=== PATIENT | male | born 1940 | race Caucasian/White ===

== ENCOUNTER 2017-04-12 08:26 | Inpatient (IN) | payer OTHER ==
[2017-04-05 12:35] VITALS: BMI 34.7
--- NOTE | 2017-04-11 08:38 | HP ---
Satellite [facility] - Chief Complaint Chief Complaint: right knee pain - Past Medical History Allergies/Adverse Reactions: Allergies Allergy/AdvReac Type Severity Reaction Status Date / Time codeine Allergy Severe Nausea Verified 04/05/17 12:18 - Current Medications Current Medications: Home Medications Medication Instructions Recorded Amlodipine Besylate 10 mg PO DAILY 04/05/17 Apixaban [Eliquis] 2.5 mg PO DAILY 04/05/17 Atenolol [Tenormin -] 100 mg PO DAILY 04/05/17 Gabapentin 100 mg PO TID 04/05/17 Interferon Beta-1A/Albumin [Rebif 44 mcg SQ ASDIR 04/05/17 44 Mcg/0.5 ml Syringe] Metformin HCl [Metformin HCl ER] 500 mg PO DAILY 04/05/17 Omeprazole 20 mg PO DAILY 04/05/17 Tamsulosin HCl [Flomax] 0.4 mg PO DAILY 04/05/17 Satellite Physical Exam - Physical Examination General Appearance: Well Nourished, Well Developed, Alert & Oriented x3 ENT: Clear Lung: Normal air movement Heart: Regular rate & rhythm Extremities: Other (right knee- + swelling, + ttp, decr rom, nvi xrays show severe tricompartmental djd) Neurological: Intact, Alert, Oriented Satellite Impression/Plan - Impression/Plan Impression: right knee djd Operative Procedure: right deion tkr Date to be Performed: 04/12/17
[2017-04-12] MEDS ORDERED: TRANEXAMIC ACID 1000 MG/10 ML VIAL IVPUSH ONE (08:42)
[2017-04-12] MEDS ORDERED: GABAPENTIN 300 MG CAPSULE (FP) PO ONE (08:42)
[2017-04-12] MEDS ORDERED: CEFAZOLIN 2 GM in DEXTROSE 5%-WATER - 50 ML IVPB ONE (08:42)
[2017-04-12] MEDS ORDERED: CELECOXIB 200 MG CAPSULE PO ONE (08:42)
[2017-04-12] MEDS ORDERED: ceFAZolin SODIUM 1 GM VIAL ONE (09:50)
[2017-04-12] MEDS ORDERED: DEXAMETHASONE SOD PHOSPHATE/PF 10 MG/ML SDV ONE (10:35)
[2017-04-12] MEDS ORDERED: ROPIVACAINE HCL 0.5% 30ML VIAL ONE (10:36)
[2017-04-12] MEDS ORDERED: MIDAZOLAM HCL 2 MG/2 ML SINGLE DOSE VIAL ONE (10:36)
[2017-04-12] MEDS ORDERED: fentaNYL CITRATE 250 MCG/5 ML VIAL ONE (10:58)
[2017-04-12] MEDS ORDERED: ROCURONIUM BROMIDE 50 MG/5 ML VIAL ONE ×2 (10:59→12:52)
[2017-04-12] MEDS ORDERED: PROPOFOL 20 ML ONE ×2 (10:59→13:18)
[2017-04-12] MEDS ORDERED: ePHEDrine SULFATE 50 MG/1 ML AMPULE ONE (11:58)
[2017-04-12] MEDS ORDERED: VANCOMYCIN 1,000 MG VIAL (RESTRICTED TO ID ONLY) ONE (12:01)
[2017-04-12] MEDS ORDERED: VANCOMYCIN 1,000 MG VIAL (RESTRICTED TO ID ONLY) IVPB ONE (13:09)
[2017-04-12] MEDS ORDERED: NEOSTIGMINE METHYLSULFATE 0.5 MG/ML - 10 ML MDV ONE (13:14)
[2017-04-12] MEDS ORDERED: MAGNESIUM HYDROX 2400MG/30ML ORAL SUSPENSION 30 ML CUP PO PRN (13:34)
[2017-04-12] MEDS ORDERED: ONDANSETRON 4 MG/2 ML VIAL IVPUSH PRN (13:34)
[2017-04-12] MEDS ORDERED: MAG HYDROX/AL HYDROX/SIMETH 30 ML UNIT-DOSE CUP PO PRN (13:34)
--- NOTE | 2017-04-12 13:38 | OP ---
Operative Note - Note: Operative Date: 04/12/17 (britney) Pre-Operative Diagnosis: right knee djd Operation: right deion tkr Post-Operative Diagnosis: Same as Pre-op Surgeon: Jarad Stevens [employer] Officer: Srinivas Lowry Anesthesiologist/GRAIN SHOVELER: José Antonio Buchanan Anesthesia: General, Local Specimens Removed: bone fragments Estimated Blood Loss (mls): 50 (tourniquet) Operative Report Dictated: Yes
[2017-04-12] MEDS ORDERED: LACTATED RINGERS SOLUTION 1,000 ML IV SCH (13:45)
--- NOTE | 2017-04-12 14:20 | SPEC ---
DATE OF OPERATION: 04/12/2017 PREOPERATIVE DIAGNOSIS: Degenerative joint disease, right knee. POSTOPERATIVE DIAGNOSIS: Degenerative joint disease, right knee. PROCEDURE: Right total knee replacement with robotic-assisted navigation (Makoplasty). SURGICAL ATTENDING: Jarad Stevens M.D. FUND CONTROLLER: Amanda Taylor ANESTHESIA: Regional and general (patient has MS). CLOSURE: A __Triathalon knee system with a 6 femur, 7 tibia, 9 polyethylene, 38 patella, number 1 Vicryl fascia, 0 and 2-0 subcutaneous, 3-0 Monocryl subcuticular with skin glue for skin, 4-0 undyed Vicryl for pin site. ESTIMATED BLOOD LOSS: Negligible. TOURNIQUET TIME: Approximately 80 minutes. COMPLICATIONS: None. CONDITION: To recovery room in stable condition. DESCRIPTION OF OPERATIVE PROCEDURE: Patient was taken to the operating room on March 22, 2017. Regional and general anesthesia was administered by the anesthesiologist. IV Kefzol and TXA were administered by the anesthesiologist. Well-padded pneumatic tourniquet was placed on the proximal thigh. The right lower extremity was prepped and draped in the usual sterile fashion. The leg was exsanguinated with an Esmarch bandage, and tourniquet was inflated to 275 mmHg. A 12 to 15-cm longitudinal midline incision was incised while centered over the patella. The dissection was carried down to the level of the extensor mechanism with sufficient flaps made to adequately perform the procedure. A medial parapatellar arthrotomy was then performed. We made a cuff of tissue on the patella for later closure. The patella was inverted, the knee was flexed up. The fat pad was excised. The subperiosteal dissection was on the anteromedial proximal tibia around towards the direction of the MCL. The ACL and the PCL were transected and debrided. The meniscal remnants of the medial and lateral meniscus were debrided and removed. This allowed the knee to be able to "be brought forward." The checkpoints were malleted into the tibia and into the femur. Two threaded pins were drilled anteroposteriorly proximal to the knee through the previous incision, through the anterior cortex, then just engaging the posterior cortex. To these pins was assembled the femoral navigation array. One handbreadth below the tibial tubercle, 2 stab incisions were used to drill 2 threaded pins in parallel fashion into the tibia, again through the anterior cortex and just engaging the posterior cortex. To these pins was fastened the tibial arrays. The knee was then registered with the navigation device with center of rotation of the hip, medial and lateral malleoli, both checkpoints, and multiple points on both the femur and the tibia to ensure excellent registration. The navigation device was directed off the "top of the bubbles" on both the femur and the tibia. The navigation passed within less than 0.5 mm to plan. The knee was then thoroughly inspected to remove all osteophytes both medially, laterally, and on the femur and the tibia, and whatever osteophytes were available for dissection. The knee was then taken to extension and to flexion, and stressed in both varus and valgus to assess flexion gaps. The virtual position of the components on the navigation device were then manipulated to optimize the position and to ensure equal gaps in both flexion and extension, and both medially and laterally. The robot was then brought into the field and was registered. The cuts were then made both on the femur and on the tibia as to plan. All osteophytes posteriorly were then removed as well. The gaps were then measured again in flexion and extension to be equal in both flexion and extension and medial and laterally. The femoral notch was then made, as we were doing a posterior stabilizing component, with the appropriate sized box. Trial reduction of the femur achieved excellent [id number] fit. A tibial baseplate of appropriate polyethylene thickness was "floated in the knee." It was ensured to be in the excellent position by navigation devices and was pinned in place. The knee was taken through a range of motion, and found to have excellent stability throughout flexion and extension. The patella was calibrated for thickness and osteotomized down to the appropriate level. The appropriate lollipop was used to drill the lug holes in the patella and the trial button was applied. The knee was taken through a range of motion and found to have excellent tracking of the patella, and patella from full extension to full flexion. Trial components were removed, the keel was punched and drilled, and a sclerotic bone on the tibia was drilled to help with cement interdigitation. The knee was thoroughly irrigated with the pulse antibiotic coper hand. The real components were then cemented in using monitored arrangement cement techniques with antibiotic cement, and pressurization and extension. After the cement was hardened, the knee was thoroughly inspected to remove any extra cement. The real polyethylene component was then clipped into place. Range of motion, stability, and tracking were as described earlier. The checkpoints and the pins were removed. The knee was thoroughly irrigated with antibiotic irrigation. Vancomycin powder was placed into the knee for antibiotic prophylaxis. The medial parapatellar arthrotomy was then closed using number 1 Vicryl interrupted suture. After closure of the deep layer, the knee was taken through a range of motion, and found to have excellent stability of the patella with no dislocation and no undue tension on the repair. The subcutaneous was pulse antibiotic irrigated, and was then closed with 2-0 Vicryl, 3-0 Monocryl subcuticular with the skin glue for the skin. The distal tibial pin site was irrigated thoroughly as well and then closed with 4-0 undyed Vicryl. A sterile Aquacel dressing was applied, followed by a García dressing. Tourniquet was deflated. Total tourniquet time was approximately 75 minutes. No complications. Patient was awakened from anesthesia and transferred to recovery room in stable condition. Postoperative x-rays revealed excellent position of the components. Gem [id number] MTDD
[2017-04-12] MEDS ORDERED: oxyCODONE HCL 5 MG TABLET ONE (14:48)
[2017-04-12] MEDS ORDERED: ACETAMINOPHEN 325 MG TABLET (FP) ONE (14:48)
[2017-04-12] MEDS: ACETAMINOPHEN 325 MG TABLET (FP) PO SCH ×2 (14:49→20:10)
[2017-04-12] MEDS: oxyCODONE HCL 5 MG TABLET PO PRN ×4 (14:49→22:13)
[2017-04-12] MEDS ORDERED: HYDROmorphone HCL CARPU-JECT 1 MG/1 ML DISP.SYRIN ONE (14:53)
[2017-04-12] MEDS ORDERED: HYDROmorphone HCL CARPU-JECT 1 MG/1 ML DISP.SYRIN IVPUSH PRN (16:00)
[2017-04-12] MEDS: CEFAZOLIN 2 GM/D5W 2 GM/50 ML ML IVPB SCH (20:10)
[2017-04-12] MEDS: SENNOSIDES/DOCUSATE COMBO (SENNA PLUS) TABLET (UD) PO SCH (21:35)
[2017-04-12] MEDS: GABAPENTIN 300 MG CAPSULE (FP) PO SCH (21:35)
[2017-04-12] MEDS: oxyCODONE HCL 10 MG SUSTAINED ACTING TABLET PO SCH (21:35)
[2017-04-12] MEDS: TAMSULOSIN HCL 0.4 MG CAP.ER.24H (FP) PO SCH (22:23)
[2017-04-13] MEDS: ACETAMINOPHEN 325 MG TABLET (FP) PO SCH ×5 (01:26→19:52)
[2017-04-13] MEDS: oxyCODONE HCL 5 MG TABLET PO PRN ×6 (01:27→17:54)
[2017-04-13] MEDS: CEFAZOLIN 2 GM/D5W 2 GM/50 ML ML IVPB SCH (03:08)
[2017-04-13] MEDS: APIXABAN 2.5 MG TABLET PO SCH ×2 (06:02→17:00)
[2017-04-13 08:42] LABS: MCH 29.3 pg (25.7-33.7); MCHC 33.1 g/dl (32.0-35.9); MEAN CELL VOLUME 88.5 fl (80-96); MEAN PLT VOLUME 11.9 fl (7.5-11.1); PLATELET COUNT 156 K/MM3 (134-434); RDW 14.2 % (11.9-15.9); WHITE BLOOD COUNT 11.1 K/mm3 (4.0-10.8)
[2017-04-13] MEDS: SENNOSIDES/DOCUSATE COMBO (SENNA PLUS) TABLET (UD) PO SCH ×2 (09:11→21:09)
[2017-04-13] MEDS: PANTOPRAZOLE 40 MG TABLET (FP) PO SCH (09:11)
[2017-04-13] MEDS: GABAPENTIN 300 MG CAPSULE (FP) PO SCH ×2 (09:11→21:09)
[2017-04-13] MEDS: ATENOLOL 50 MG TABLET (FP) PO SCH (09:11)
[2017-04-13] MEDS: oxyCODONE HCL 10 MG SUSTAINED ACTING TABLET PO SCH ×2 (09:12→21:09)
[2017-04-13] MEDS: MULTIVITAMINS (DAILY MVI) TABLET (FP) PO SCH (09:12)
[2017-04-13] MEDS: amLODIPine BESYLATE 10 MG TABLET (FP) PO SCH (09:12)
[2017-04-13] MEDS ORDERED: PATIENT'S OWN MEDICATION (NON-FORMULARY) (Atenolol [Tenormin -] 100 MG) PO SCH (10:00)
--- NOTE | 2017-04-13 10:03 | PN ---
Progress Note (short form) - Note Progress Note: Ortho Pt seen and examined s/p right deino tkr pod #1 Selected Entries 04/13/17 06:38 Temperature 98.4 F Pulse Rate 56 L Respiratory 19 Rate Blood Pressure 120/63 Laboratory Tests 04/13/17 07:00 WBC 11.1 H Hgb 14.0 Hct 42.3 Plt Count 156 dressing c/d/i, calf soft, nt rom 0-40, nvi a/p PT dvt ppx pain control d/c home tomorrow if stable
[2017-04-13] MEDS ORDERED: diazePAM 5 MG TABLET PO PRN (14:18)
[2017-04-13] MEDS: TAMSULOSIN HCL 0.4 MG CAP.ER.24H (FP) PO SCH (14:19)
--- NOTE | 2017-04-13 14:22 | PN ---
Progress Note, Physician Chief Complaint: s/p left BOOKER kneww replacement History of Present Illness: udner spinal anesthesia, peripheral nerve blck, post op day one. - Current Medication List Current Medications: Active Medications Acetaminophen (Tylenol -) 650 mg PO Q6H [facility] Stop: 04/15/17 13:59 Last Admin: 04/13/17 08:00 Dose: Not Given Al Hydroxide/Mg Hydroxide (Mylanta Oral Suspension -) 30 ml PO Q4H PRN PRN Reason: DYSPEPSIA Amlodipine Besylate (Norvasc -) 10 mg PO DAILY [facility] Last Admin: 04/13/17 09:12 Dose: 10 mg Apixaban (Eliquis -) 2.5 mg PO BID@0600,1800 [facility] Last Admin: 04/13/17 06:02 Dose: 2.5 mg Atenolol (Tenormin -) 100 mg PO DAILY [facility] Last Admin: 04/13/17 09:11 Dose: 100 mg Diazepam (Valium -) 5 mg PO Q8H PRN PRN Reason: MUSCLE SPASMS Gabapentin (Neurontin -) 300 mg PO BID [facility] Last Admin: 04/13/17 09:11 Dose: 300 mg Hydromorphone HCl (Dilaudid Injection -) 0.5 mg IVPUSH ONCE PRN Magnesium Hydroxide (Milk Of Magnesia -) 30 ml PO PRN PRN PRN Reason: CONSTIPATION Metformin HCl (Glucophage Xr -) 500 mg PO ACBK [facility] Last Admin: 04/13/17 06:46 Dose: 500 mg Multivitamins/Minerals/Vitamin C (Tab-A-Vit -) 1 tab PO DAILY [facility] Last Admin: 04/13/17 09:12 Dose: 1 tab Non-Formulary Medication (Interferon Beta-1a/Albumin [Rebif 44 Mcg/0.5 Ml Syringe]) 44 mcg SQ ASDIR [facility] Ondansetron HCl (Zofran Injection) 4 mg IVPUSH Q6H PRN PRN Reason: NAUSEA Last Admin: 04/12/17 14:03 Dose: 4 mg Oxycodone HCl (Roxicodone -) 5 mg PO Q3H PRN PRN Reason: PAIN LEVEL 1-5 Last Admin: 04/13/17 07:30 Dose: 5 mg Oxycodone HCl (Roxicodone -) 10 mg PO Q3H PRN PRN Reason: PAIN LEVEL 6-10 Last Admin: 04/13/17 11:59 Dose: 10 mg Oxycodone HCl (Oxycontin -) 10 mg PO BID [facility] Stop: 04/15/17 13:52 Last Admin: 04/13/17 09:12 Dose: 10 mg Pantoprazole Sodium (Protonix -) 40 mg PO DAILY [facility] Last Admin: 04/13/17 09:11 Dose: 40 mg Senna/Docusate Sodium (Pericolace -) 2 tablet PO BID [facility] Last Admin: 04/13/17 09:11 Dose: 2 tablet Tamsulosin HCl (Flomax -) 0.4 mg PO DAILY@1500 [facility] Last Admin: 04/12/17 22:23 Dose: 0.4 mg - Objective Vital Signs: Vital Signs Temperature 98.4 F 04/13/17 06:38 Pulse Rate 56 L 04/13/17 06:38 Respiratory Rate 19 04/13/17 06:38 Blood Pressure 120/63 04/13/17 06:38 O2 Sat by Pulse Oximetry (%) 94 L 04/13/17 06:38 Constitutional: Yes: Well Nourished Cardiovascular: Yes: WNL Respiratory: Yes: WNL Gastrointestinal: Yes: WNL Neurological: Yes: WNL Labs: CBC, BMP 04/13/17 07:00 Assessment/Plan complaining of posterior leg pain, likely spasm in nature, anterior pain controlled, pain not relived by oral analgesics, no nausea or vomiting, slight headache, not positional in nature, no vision changes. Will order valium prn for muscle spasm and analgesic adjunct.
--- NOTE | 2017-04-13 14:30 | CONSULT ---
Consultation: REQUESTING PROVIDER: Rodney CONSULT REQUEST: We have been asked to medically evaluate this patient for right calf pain. HISTORY OF PRESENT ILLNESS: Patient is a 76y/o male with a past medical history of dvt (eliquis), htn, hld, dm, bph, and osteoarthritis. patient is s/p right TKR (deion), post op day 1, Dr Stevens. Patient reports moderate right calf pain on post op day 1, patient denies any chest pain or shortness of breath. REVIEW OF SYSTEMS: CONSTITUTIONAL: Absent: fever, chills, diaphoresis, generalized weakness, malaise, loss of appetite, weight change HEENT: Absent: rhinorrhea, nasal congestion, throat pain, throat swelling, difficulty swallowing, mouth swelling, ear pain, eye pain, visual changes CARDIOVASCULAR: Absent: chest pain, syncope, palpitations, irregular heart rate, lightheadedness , peripheral edema RESPIRATORY: Absent: cough, shortness of breath, dyspnea with exertion, orthopnea, wheezing, stridor, hemoptysis GASTROINTESTINAL: Absent: abdominal pain, abdominal distension, nausea, vomiting, diarrhea, constipation, melena, hematochezia GENITOURINARY: Absent: dysuria, frequency, urgency, hesitancy, hematuria, flank pain, genital pain MUSCULOSKELETAL: present: right calf pain Absent: myalgia, arthralgia, joint swelling, back pain, neck pain SKIN: Absent: rash, itching, pallor HEMATOLOGIC/IMMUNOLOGIC: Absent: easy bleeding, easy bruising, lymphadenopathy, frequent infections ENDOCRINE: Absent: unexplained weight gain, unexplained weight loss, heat intolerance, cold intolerance NEUROLOGIC: Absent: headache, focal weakness or paresthesias, dizziness, unsteady gait, seizure, mental status changes, bladder or bowel incontinence PSYCHIATRIC: Absent: anxiety, depression, suicidal or homicidal ideation, hallucinations. PHYSICAL EXAMINATION Vital Signs - 24 hr 04/12/17 04/12/17 04/12/17 14:30 14:45 15:00 Temperature Pulse Rate 58 L 63 61 Respiratory 12 15 15 Rate Blood Pressure 134/81 139/78 114/81 O2 Sat by Pulse 98 95 95 Oximetry (%) 04/12/17 04/12/17 04/12/17 15:15 15:30 15:38 Temperature 98.9 F 98.6 F Pulse Rate 59 L 62 71 Respiratory 18 18 18 Rate Blood Pressure 116/75 116/75 141/77 O2 Sat by Pulse 95 98 Oximetry (%) 04/12/17 04/12/17 04/13/17 21:00 21:34 06:38 Temperature 98.6 F 98.4 F Pulse Rate 67 56 L Respiratory 18 20 19 Rate Blood Pressure 114/61 120/63 O2 Sat by Pulse 99 94 L 94 L Oximetry (%) GENERAL: Awake, alert, and fully oriented, in no acute distress. HEAD: Normal with no signs of trauma. EYES: Pupils equal, round and reactive to light, extraocular movements intact, sclera anicteric, conjunctiva clear. No lid lag. EARS, NOSE, THROAT: Ears normal, nares patent, oropharynx clear without exudates. Moist mucous membranes. NECK: Normal range of motion, supple without lymphadenopathy, JVD, or masses. LUNGS: Breath sounds equal, clear to auscultation bilaterally. No wheezes, and no crackles. No accessory muscle use. HEART: Regular rate and rhythm, normal S1 and S2 without murmur, rub or gallop. ABDOMEN: Soft, nontender, not distended, normoactive bowel sounds, no guarding, no rebound, no masses. No hepatomegaly or splenomegaly. MUSCULOSKELETAL: Normal range of motion at all joints. No bony deformities or tenderness. No CVA tenderness. UPPER EXTREMITIES: 2+ pulses, warm, well-perfused. No cyanosis. No clubbing. Cap refill <2 seconds. No peripheral edema. LOWER EXTREMITIES: 2+ pulses, warm, well-perfused. +right calf tenderness, no erythema noted, No peripheral edema. RIGHT LOWER EXTREMITY: less than 3 second capillary refill, dressing CDI, SCD/ TALIA noted, +3 pedal pulse NEUROLOGICAL: Cranial nerves II-XII intact. Normal speech. Normal gait. PSYCHIATRIC: Cooperative. Good eye contact. Appropriate mood and affect. SKIN: Warm, dry, normal turgor, no rashes or lesions noted. Laboratory Results - last 24 hr 04/13/17 04/13/17 06:44 07:00 WBC 11.1 H RBC 4.78 Hgb 14.0 Hct 42.3 MCV 88.5 MCH 29.3 MCHC 33.1 RDW 14.2 Plt Count 156 MPV 11.9 H POC Glucometer 124 Active Medications Generic Name Dose Route Start Last Admin Trade Name Freq PRN Reason Stop Dose Admin Acetaminophen 650 mg 04/12/17 14:00 04/13/17 14:19 Tylenol - PO 04/15/17 13:59 650 mg Q6H NESSA Administration Al Hydroxide/Mg Hydroxide 30 ml 04/12/17 13:34 Mylanta Oral Suspension - PO Q4H PRN DYSPEPSIA Amlodipine Besylate 10 mg 04/13/17 10:00 04/13/17 09:12 Norvasc - PO 10 mg DAILY N[facility] Administration Apixaban 2.5 mg 04/13/17 06:00 04/13/17 06:02 Eliquis - PO 2.5 mg BID@0600,1800 N[facility] Administration Atenolol 100 mg 04/13/17 10:00 04/13/17 09:11 Tenormin - PO 100 mg DAILY [facility] Administration Diazepam 5 mg 04/13/17 14:18 Valium - PO Q8H PRN MUSCLE SPASMS Gabapentin 300 mg 04/12/17 22:00 04/13/17 09:11 Neurontin - PO 300 mg BID [facility] Administration Hydromorphone HCl 0.5 mg 04/12/17 16:00 Dilaudid Injection - IVPUSH ONCE PRN Magnesium Hydroxide 30 ml 04/12/17 13:34 Milk Of Magnesia - PO PRN PRN CONSTIPATION Metformin HCl 500 mg 04/13/17 07:00 04/13/17 06:46 Glucophage Xr - PO 500 mg ACBK N[facility]SA Administration Multivitamins/Minerals/Vitamin C 1 tab 04/13/17 10:00 04/13/17 09:12 Tab-A-Vit - PO 1 tab DAILY [facility] Administration Non-Formulary Medication 44 mcg 04/12/17 13:45 Interferon Beta-1a/Albumin [Rebif 44 Mcg/0.5 Ml Syringe] SQ ASDIR [facility] Ondansetron HCl 4 mg 04/12/17 13:34 04/12/17 14:03 Zofran Injection IVPUSH 4 mg Q6H PRN Administration NAUSEA Oxycodone HCl 5 mg 04/12/17 13:50 04/13/17 14:20 Roxicodone - PO 5 mg Q3H PRN Administration PAIN LEVEL 1-5 Oxycodone HCl 10 mg 04/12/17 13:50 04/13/17 11:59 Roxicodone - PO 10 mg Q3H PRN Administration PAIN LEVEL 6-10 Oxycodone HCl 10 mg 04/12/17 22:00 04/13/17 09:12 Oxycontin - PO 04/15/17 13:52 10 mg BID [facility] Administration Pantoprazole Sodium 40 mg 04/13/17 10:00 04/13/17 09:11 Protonix - PO 40 mg DAILY [facility] Administration Senna/Docusate Sodium 2 tablet 04/12/17 22:00 04/13/17 09:11 Pericolace - PO 2 tablet BID [facility] Administration Tamsulosin HCl 0.4 mg 04/12/17 22:30 04/13/17 14:19 Flomax - PO 0.4 mg DAILY@1500 [facility] Administration ASSESSMENT/PLAN: 1) MS right TKR s/p deion post op day 1 - report calf pain, hx of dvt, will order ultrasound of right lower extremity--> continue eliquis - prn pain medication - incentive spirometer - pt as per ortho 2) card hypertension - continue norvasc, b/p at goal 3) gu bph - monitor for signs of urinary retention, continue flomax 4) endo niddm - continue metform f/e/n - low sodium diabetic diet ppx - elquis - protonix Dispo: We will continue to follow the patient. Thank you for this consultative opportunity. Visit type - Emergency Visit Emergency Visit: No - New Patient This patient is new to me today: Yes Date on this admission: 04/13/17 - Critical Care Critical Care patient: No
[2017-04-14] MEDS: ACETAMINOPHEN 325 MG TABLET (FP) PO SCH ×4 (01:04→20:22)
[2017-04-14] MEDS: oxyCODONE HCL 5 MG TABLET PO PRN ×5 (01:04→16:46)
[2017-04-14] MEDS: APIXABAN 2.5 MG TABLET PO SCH ×2 (06:11→18:00)
[2017-04-14 08:46] LABS: MCH 29.8 pg (25.7-33.7); MCHC 33.3 g/dl (32.0-35.9); MEAN CELL VOLUME 89.5 fl (80-96); MEAN PLT VOLUME 12.3 fl (7.5-11.1); PLATELET COUNT 136 K/MM3 (134-434); RDW 14.2 % (11.9-15.9); WHITE BLOOD COUNT 15.9 K/mm3 (4.0-10.8)
[2017-04-14] MEDS: SENNOSIDES/DOCUSATE COMBO (SENNA PLUS) TABLET (UD) PO SCH ×2 (09:07→21:16)
[2017-04-14] MEDS: MULTIVITAMINS (DAILY MVI) TABLET (FP) PO SCH (09:07)
[2017-04-14] MEDS: GABAPENTIN 300 MG CAPSULE (FP) PO SCH ×2 (09:07→21:16)
[2017-04-14] MEDS: PANTOPRAZOLE 40 MG TABLET (FP) PO SCH (09:07)
[2017-04-14] MEDS: amLODIPine BESYLATE 10 MG TABLET (FP) PO SCH (09:08)
[2017-04-14] MEDS: ATENOLOL 50 MG TABLET (FP) PO SCH (09:08)
[2017-04-14] MEDS: oxyCODONE HCL 10 MG SUSTAINED ACTING TABLET PO SCH ×2 (09:08→21:16)
--- NOTE | 2017-04-14 09:46 | PN ---
Progress Note (short form) - Note Progress Note: Ortho Pt seen and examined s/p right edion tkr pod #2-had calf pain yesterday, was evaluated by hospitalist Selected Entries 04/14/17 05:51 Temperature 97.8 F Pulse Rate 75 Respiratory 18 Rate Blood Pressure 136/60 Laboratory Tests 04/14/17 07:00 WBC 15.9 H D Hgb 12.9 Hct 38.8 Plt Count 136 dressing c/d/i, calf soft, nt rom 0-40, nvi US neg for dvt a/p PT dvt ppx pain control d/c home today f/u in 1 week
--- NOTE | 2017-04-14 09:50 | DS ---
Physical Examination Vital Signs: Vital Signs Temperature 97.8 F 04/14/17 05:51 Pulse Rate 75 04/14/17 05:51 Respiratory Rate 18 04/14/17 05:51 Blood Pressure 136/60 04/14/17 05:51 O2 Sat by Pulse Oximetry (%) 95 04/14/17 08:20 Labs: CBC, BMP 04/14/17 07:00 Discharge Summary Reason For Visit: OSTEOARTHRITIS Procedures: Principal: s/p right tkr Hospital Course: admitted for elective right tkr, had calf pain on surgical side, US performed and was neg, no other symptoms, styable for d/c Condition: Good - Instructions Diet, Activity, Other Instructions: Post-op Instructions-Total Knee Replacement Call the office for a follow-up appointment in 1 week - [phone] Aspirin 325mg daily for 6 weeks. Pain medication was sent into your pharmacy. Apply Graduated Compression Stockings (TEDs) to both lower extremities- remove daily for hygiene ONLY Apply Sequential Compression Device (SCDs) to both Lower extremities remove for PT and hygiene ONLY Apply cold packs to affected area for 15 minutes every 2 hours. Physical Therapist will come to your home for the first 5 days. You will be set up with outpatient PT at your first post-operative visit. Patient may ambulate as tolerated-encourage self care (at least every 2-3 hours while awake) with walker or cane Maintain Aquacel (waterproof) dressing to operative wound (will be removed by surgeon at first office visit) Shower with Aquacel dressing in place-if Aquacel integrity compromised, remove and apply dry sterile dressing and notify Orthopedist. DO NOT SHOWER unless Orthopedists approves without Aquacel dressing CONTACT THE OFFICE FOR ANY CHANGE IN YOUR CONDITION (for example-fever greater than 102 degrees, excessive bleeding from operative site, purulent drainage, severe swelling or pain) GO TO THE EMERGENCY ROOM IF THERE IS A MEDICAL EMERGENCY Knee Precautions: * Keep a rolled towel under affected heel while in bed or chair (to keep knee in extension) * Keep affected leg elevated except during mealtimes * DO NOT PLACE PILLOW UNDER AFFECTED KNEE * If you have any questions, please do not hesitate to call the office - [phone]. Referrals: Jarad Stevens MD [Staff Physician] - Disposition: VNS/HOME HEALTH CARE - Home Medications Comprehensive Discharge Medication List: Ambulatory Orders Amlodipine Besylate 10 mg PO DAILY 04/05/17 Apixaban [Eliquis] 2.5 mg PO DAILY 04/05/17 Atenolol [Tenormin -] 100 mg PO DAILY 04/05/17 Gabapentin 100 mg PO TID 04/05/17 Interferon Beta-1A/Albumin [Rebif 44 Mcg/0.5 ml Syringe] 44 mcg SQ ASDIR Metformin HCl [Metformin HCl ER] 500 mg PO DAILY 04/05/17 Omeprazole 20 mg PO DAILY 04/05/17 Tamsulosin HCl [Flomax -] 0.4 mg PO DAILY 04/05/17 Oxycodone HCl/Acetaminophen [Percocet 5-325 mg Tablet] 1 - 2 tab PO Q6H #50 tab MDD 8 04/12/17 Oxycodone HCl/Acetaminophen [Percocet 10-325 mg Tablet] 1 each PO QID #50 tablet MDD 4 04/14/17
[2017-04-14] MEDS: TAMSULOSIN HCL 0.4 MG CAP.ER.24H (FP) PO SCH (14:28)
[2017-04-14] MEDS ORDERED: PT OWN MED DRAWER 7, Y5N ONE (16:40)
--- NOTE | 2017-04-14 17:16 | PATH ---
Surgical Pathology Report Patient Name: AGUSTÍN MARTIN Med. Rec. #: [id number] /Age/Gender: 1940 (Age: 76) / M Account: [id number] Location: [facility] Taken: 04/12/2017 Received: 04/12/2017 Reported: 04/14/2017 Physicians: Jarad Stevens M.D. Specimen(s) Received RIGHT KNEE BONES Clinical History Osteoarthritis right knee Final Diagnosis KNEE BONES, RIGHT, TOTAL KNEE REPLACEMENT: DEGENERATIVE JOINT DISEASE. Electronically Signed Mylene Sainz M.D. Gross Description Received in formalin labeled "right knee bones," is a 13.0 x 8.5 x 2.0 cm aggregate of multiple armando, irregular portions of bone and soft tissue. The tibial plateau measures 8.2 x 6.0 x 1.5 cm. Some of the portions of bone display areas of eburnation, measuring up to 2.2 cm in greatest dimension. The remaining articular surfaces are armando-yellow and focally granular. The underlying trabecular bone is yellow and hard. Re[employer] Establishment Manager sections are submitted in one cassette, following decalcification. 04/13/201704/13/2017
[2017-04-15] MEDS: ACETAMINOPHEN 325 MG TABLET (FP) PO SCH ×2 (02:00→08:30)
[2017-04-15 05:34] VITALS: TEMP 98.3
[2017-04-15] MEDS: APIXABAN 2.5 MG TABLET PO SCH (05:47)
--- NOTE | 2017-04-15 09:30 | PN ---
Progress Note (short form) - Note Progress Note: Ortho Pt seen and examined s/p right deion tkr pod #2-calf pain improved Selected Entries 04/15/17 05:32 Temperature 98.3 F Pulse Rate 78 Respiratory 20 Rate Blood Pressure 100/42 dressing c/d/i, calf soft, nt rom 0-40, nvi US neg for dvt a/p PT dvt ppx pain control d/c to [facility] today
--- NOTE | 2017-04-15 09:30 | DS ---
Physical Examination Vital Signs: Vital Signs Temperature 98.3 F 04/15/17 05:32 Pulse Rate 78 04/15/17 05:32 Respiratory Rate 20 04/15/17 05:32 Blood Pressure 100/42 04/15/17 05:32 O2 Sat by Pulse Oximetry (%) 94 L 04/15/17 09:10 Labs: CBC, BMP 04/14/17 07:00 Discharge Summary Reason For Visit: OSTEOARTHRITIS Procedures: Principal: s/p right deion tkr Hospital Course: admitted for elective right tkr, had calf pain on surgical side, US performed and was neg, no other symptoms, styable for d/c Condition: Good - Instructions Diet, Activity, Other Instructions: Post-op Instructions-Total Knee Replacement Call the office for a follow-up appointment in 1 week - [phone] Aspirin 325mg daily for 6 weeks. Pain medication was sent into your pharmacy. Apply Graduated Compression Stockings (TEDs) to both lower extremities- remove daily for hygiene ONLY Apply Sequential Compression Device (SCDs) to both Lower extremities remove for PT and hygiene ONLY Apply cold packs to affected area for 15 minutes every 2 hours. Physical Therapist will come to your home for the first 5 days. You will be set up with outpatient PT at your first post-operative visit. Patient may ambulate as tolerated-encourage self care (at least every 2-3 hours while awake) with walker or cane Maintain Aquacel (waterproof) dressing to operative wound (will be removed by surgeon at first office visit) Shower with Aquacel dressing in place-if Aquacel integrity compromised, remove and apply dry sterile dressing and notify Orthopedist. DO NOT SHOWER unless Orthopedists approves without Aquacel dressing CONTACT THE OFFICE FOR ANY CHANGE IN YOUR CONDITION (for example-fever greater than 102 degrees, excessive bleeding from operative site, purulent drainage, severe swelling or pain) GO TO THE EMERGENCY ROOM IF THERE IS A MEDICAL EMERGENCY Knee Precautions: * Keep a rolled towel under affected heel while in bed or chair (to keep knee in extension) * Keep affected leg elevated except during mealtimes * DO NOT PLACE PILLOW UNDER AFFECTED KNEE * If you have any questions, please do not hesitate to call the office - [phone]. Referrals: Jarad Stevens MD [Staff Physician] - Disposition: [facility] - Home Medications Comprehensive Discharge Medication List: Ambulatory Orders Amlodipine Besylate 10 mg PO DAILY 04/05/17 Apixaban [Eliquis] 2.5 mg PO DAILY 04/05/17 Atenolol [Tenormin -] 100 mg PO DAILY 04/05/17 Gabapentin 100 mg PO TID 04/05/17 Interferon Beta-1A/Albumin [Rebif 44 Mcg/0.5 ml Syringe] 44 mcg SQ ASDIR Metformin HCl [Metformin HCl ER] 500 mg PO DAILY 04/05/17 Omeprazole 20 mg PO DAILY 04/05/17 Tamsulosin HCl [Flomax -] 0.4 mg PO DAILY 04/05/17 Oxycodone HCl/Acetaminophen [Percocet 5-325 mg Tablet] 1 - 2 tab PO Q6H #50 tab MDD 8 04/12/17 Oxycodone HCl/Acetaminophen [Percocet 10-325 mg Tablet] 1 each PO QID #50 tablet MDD 4 04/14/17
[2017-04-15 09:37] VITALS: BP 122/53; PULSE 76
[2017-04-15] MEDS: PANTOPRAZOLE 40 MG TABLET (FP) PO SCH (09:45)
[2017-04-15] MEDS: MULTIVITAMINS (DAILY MVI) TABLET (FP) PO SCH (09:45)
[2017-04-15] MEDS: amLODIPine BESYLATE 10 MG TABLET (FP) PO SCH (09:45)
[2017-04-15] MEDS: GABAPENTIN 300 MG CAPSULE (FP) PO SCH (09:45)
[2017-04-15] MEDS: SENNOSIDES/DOCUSATE COMBO (SENNA PLUS) TABLET (UD) PO SCH (09:46)
[2017-04-15] MEDS: oxyCODONE HCL 10 MG SUSTAINED ACTING TABLET PO SCH (09:46)
[2017-04-15] MEDS: ATENOLOL 50 MG TABLET (FP) PO SCH (09:47)
== END 2017-04-15 13:15 | DRG 470 ==
LOC: FM/S 08:26
PROVIDERS: ADMIT Orthopaedic Surgery; ATTEND Orthopaedic Surgery
PROC: 0SRC0J9 Replacement of Right Knee Joint with Synthetic Substitute, Cemented, Open Approach (ICD-10-PCS; principal; 2017-04-12 10:30)
DX: M17.11 Unilateral primary osteoarthritis, right knee (principal); Z79.01 Long term (current) use of anticoagulants; I10 Essential (primary) hypertension; E78.5 Hyperlipidemia, unspecified; E11.9 Type 2 diabetes mellitus without complications; N40.0 Benign prostatic hyperplasia without lower urinary tract symptoms; Z79.84 Long term (current) use of oral hypoglycemic drugs; Z86.718 Personal history of other venous thrombosis and embolism
CPT/HCPCS: 36415; 73560-TC-RT; 85027; 88304-TC; 88311-TC; 93971-TC; 94010; 94760; 97116-GP

== ENCOUNTER 2017-04-19 21:12 | Inpatient (IN) | payer OTHER ==
[2017-04-19] MEDS ORDERED: SODIUM CHLORIDE 1,000 ML IV STA (21:48)
--- NOTE | 2017-04-19 21:48 | PDOC ---
History of Present Illness - General History Source: Patient Exam Limitations: No Limitations - History of Present Illness Initial Comments: 04/20/17 02:08 Patient is a 76 year old male with a significant past medical history of dvt ( eliquis), htn, hld, dm, bph, and osteoarthritis. patient is s/p right TKR (deion ) who was brought by the EMS to the ED with complaints of Lower extremity pain and urine retention that began early this week. As per [facility] staff patient was given duplex doppler, with results indicating DVT in lower extremities bilaterally. Patient was then referred to the ED for further evaluation. Patient comes in with BUN at 156, BUN was 14 in february. Denies chest pain, SOB. Denies fever, chills. Denies nausea, vomiting. Denies diarrhea, constipation, dysuria. Denies any other symptoms. Allergies: Codeine Social history: Lives in [facility]. No smoking. No alcohol. No illicit drugs. Surgical history: Orthopedic surgery (4 days ago) PMD: Dr. Joseph <Byron Goldstein - Last Filed: 04/20/17 02:08> <Casi Bernard - Last Filed: 04/20/17 03:29> - General Chief Complaint: Pain, Acute Stated Complaint: DVT Time Seen by Provider: 04/19/17 21:18 Past History <Byron Goldstein - Last Filed: 04/20/17 02:08> - Past Medical History Anemia: No Asthma: No Cancer: No Cardiac Disorders: No CVA: No COPD: No CHF: No Dementia: No Diabetes: Yes (NIDDM) GI Disorders: Yes (GERD) Disorders: Yes (BPH) HTN: Yes Hypercholesterolemia: Yes (COULDN'T TAKE MEDS BECAUSE OF PAIN) Liver Disease: No Seizures: No Thyroid Disease: No - Surgical History Abdominal Surgery: No Appendectomy: No Cardiac Surgery: No Cholecystectomy: No Lung Surgery: No Neurologic Surgery: No Orthopedic Surgery: Yes (RIGHT SHOULDER SX ) - Suicide/Smoking/Psychosocial Hx Smoking History: Never smoked Have you smoked in the past 12 months: No Information on smoking cessation initiated: No Hx Alcohol Use: No Drug/Substance Use Hx: No Substance Use Type: None Hx Substance Use Treatment: No <Casi Bernard - Last Filed: 04/20/17 03:29> - Past Medical History Allergies/Adverse Reactions: Allergies Allergy/AdvReac Type Severity Reaction Status Date / Time codeine Allergy Severe Nausea Verified 04/19/17 21:25 Home Medications: Ambulatory Orders Amlodipine Besylate 10 mg PO DAILY 04/05/17 Apixaban [Eliquis] 2.5 mg PO DAILY 04/05/17 Atenolol [Tenormin -] 100 mg PO DAILY 04/05/17 Gabapentin 100 mg PO TID 04/05/17 Interferon Beta-1A/Albumin [Rebif 44 Mcg/0.5 ml Syringe] 44 mcg SQ ASDIR Metformin HCl [Metformin HCl ER] 500 mg PO DAILY 04/05/17 Omeprazole 20 mg PO DAILY 04/05/17 Tamsulosin HCl [Flomax -] 0.4 mg PO DAILY 04/05/17 Oxycodone HCl/Acetaminophen [Percocet 5-325 mg Tablet] 1 - 2 tab PO Q6H #50 tab MDD 8 04/12/17 Oxycodone HCl/Acetaminophen [Percocet 10-325 mg Tablet] 1 each PO QID #50 tablet MDD 4 04/14/17 Review of Systems - Review of Systems Able to Perform ROS?: Yes Comments:: 04/20/17 02:08 CONSTITUTIONAL: Absent: fever, chills, diaphoresis, generalized weakness, malaise, loss of appetite HEENT: Absent: rhinorrhea, nasal congestion, throat pain, throat swelling, difficulty swallowing, mouth swelling, ear pain, eye pain, visual Changes CARDIOVASCULAR: Absent: chest pain, syncope, palpitations, irregular heart rate, lightheadedness , peripheral edema RESPIRATORY: Absent: cough, shortness of breath, dyspnea with exertion, orthopnea, wheezing, stridor, hemoptysis GASTROINTESTINAL: Absent: abdominal pain, abdominal distension, nausea, vomiting, diarrhea, constipation, melena, hematochezia GENITOURINARY: Absent: dysuria, frequency, urgency, hesitancy, hematuria, flank pain, genital pain MUSCULOSKELETAL: +Bilateral lower extremity edema. Absent: myalgia, arthralgia, SKIN: Absent: rash, itching, pallor HEMATOLOGIC/IMMUNOLOGIC: Absent: easy bleeding, easy bruising, lymphadenopathy, frequent infections ENDOCRINE: Absent: unexplained weight gain, unexplained weight loss, heat intolerance, cold intolerance NEUROLOGIC: Absent: headache, focal weakness or paresthesias, dizziness, unsteady gait, seizure, mental status changes, bladder or bowel incontinence PSYCHIATRIC: Absent: anxiety, depression, suicidal or homicidal ideation, hallucinations. All Other Systems: Reviewed and Negative <Byron Goldstein - Last Filed: 04/20/17 02:08> *Physical Exam - Vital Signs Last Vital Signs Temp Pulse Resp BP Pulse Ox 98.6 F 60 20 104/55 99 04/19/17 22:28 04/20/17 01:21 04/20/17 01:21 04/20/17 01:21 04/20/17 01:21 - Physical Exam Comments: 04/20/17 02:09 GENERAL: Well developed, well nourished. Awake and alert. No acute distress. HEENT: Normocephalic, atraumatic. PERRLA, EOMI. No conjunctival pallor. Sclera are non- icteric. Moist mucous membranes. Oropharynx is clear. NECK: Supple. Full ROM. No JVD. Carotid pulses 2+ and symmetric, without bruits. No thyromegaly. No lymphadenopathy. CARDIOVASCULAR: Regular rate and rhythm. No murmurs, rubs, or gallops. Distal pulses are 2+ and symmetric. PULMONARY: No evidence of respiratory distress. Lungs clear to auscultation bilaterally. No wheezing, rales or rhonchi. ABDOMINAL: Soft. Non-tender. Non-distended. No rebound or guarding. No organomegaly. Normoactive bowel sounds. MUSCULOSKELETAL Normal range of motion at all joints. No bony deformities or tenderness. No CVA tenderness. EXTREMITIES: +Big swollen right leg. No calf tenderness. SKIN: Warm and dry. Normal capillary refill. No rashes. No jaundice. NEUROLOGICAL: Alert, awake, appropriate. Cranial nerves 2-12 intact. No deficits to light touch and temperature in face, upper extremities and lower extremities. No motor deficits in the in face, upper extremities and lower extremities. Normoreflexic in the upper and lower extremities. Normal speech. Toes are down-going bilaterally. PSYCHIATRIC: Cooperative. Good eye contact. Appropriate mood and affect. <Byron Goldstein - Last Filed: 04/20/17 02:08> - Vital Signs Last Vital Signs Temp Pulse Resp BP Pulse Ox 98.5 F 57 L 16 107/57 97 04/19/17 21:18 04/19/17 21:18 04/19/17 21:18 04/19/17 21:18 04/19/17 21:18 <Marco AntonioCasi - Last Filed: 04/20/17 03:29> ED Treatment Course - LABORATORY CBC & Chemistry Diagram: 04/19/17 21:54 04/19/17 21:54 - ADDITIONAL ORDERS Additional order review: Laboratory Results 04/19/17 04/19/17 04/19/17 22:17 21:54 21:54 PT with INR INR PTT (Actin FS) Sodium Potassium Chloride Carbon Dioxide Anion Gap BUN Creatinine Creat Clearance w eGFR Random Glucose Lactic Acid 1.0 Calcium Total Bilirubin AST ALT Alkaline Phosphatase Creatine Kinase Creatine Kinase Index CK-MB (CK-2) Troponin I Total Protein Albumin Urine Color Ltyellow Urine Appearance Slcloudy Urine pH 5.0 Ur Specific [place] 1.015 Urine Protein Negative Urine Glucose (UA) Negative Urine Ketones Negative Urine Blood 2+ H Urine Nitrite Negative Urine Bilirubin Negative Urine Urobilinogen Negative Ur Epithelial Cells Rare Urine Bacteria Rare Hyaline Casts 5 Urine Mucus Rare Blood Type A POSITIVE Antibody Screen Negative 04/19/17 04/19/17 21:54 21:54 PT with INR 15.70 H INR 1.39 H PTT (Actin FS) 26.1 L Sodium 131 L Potassium 5.9 H D Chloride 99 Carbon Dioxide 20 L D Anion Gap 12 BUN 156 H* D Creatinine 5.2 H D Creat Clearance w eGFR 10.90 Random Glucose 154 H D Lactic Acid Calcium 7.3 L Total Bilirubin 0.6 AST 21 ALT 10 L Alkaline Phosphatase 71 Creatine Kinase 166 Creatine Kinase Index 1.0 CK-MB (CK-2) 1.772 Troponin I < 0.02 Total Protein 5.8 L Albumin 2.3 L Urine Color Urine Appearance Urine pH Ur Specific [place] Urine Protein Urine Glucose (UA) Urine Ketones Urine Blood Urine Nitrite Urine Bilirubin Urine Urobilinogen Ur Epithelial Cells Urine Bacteria Hyaline Casts Urine Mucus Blood Type Antibody Screen 04/19/17 21:54 RBC 2.85 L D MCV 88.7 MCHC 32.5 RDW 14.7 MPV 11.7 H D Neutrophils % 75.0 Lymphocytes % 11.5 Monocytes % 11.8 H Eosinophils % 0.9 Basophils % 0.8 - Medications Given in the ED: ED Medications Discontinued Medications Generic Name Dose Route Start Last Admin Trade Name Freq PRN Reason Stop Dose Admin Sodium Chloride 1,000 mls @ 1,000 mls/hr 04/19/17 21:48 04/19/17 21:52 Normal Saline - IV 04/19/17 22:47 1,000 mls/hr ASDIR STA Administration <Byron Goldstein - Last Filed: 04/20/17 02:08> - LABORATORY CBC & Chemistry Diagram: 04/19/17 21:54 04/19/17 21:54 - RADIOLOGY Radiology Studies Ordered: Category Date Time Status CHEST X-RAY PORTABLE* [RAD] Stat Radiology 04/19/17 21:46 Ordered <Casi Bernard - Last Filed: 04/20/17 03:29> Medical Decision Making - Medical Decision Making 04/20/17 03:07 76-year-old male brought in by ambulance from [facility] because ultrasound was done on his legs and found to be positive. History of present illness -patient had right knee replacement on April [address] Stevens and was sent [facility] for [facility]. Past medical history significant for DVTs in the past and he is on ELIQUIS,has hypertension, hyperlipidemia, non-insulin depended diabetes, osteoarthritis, BPH. -I conformed bilateral DVTs with b/L duplex dopplers Significant laboratory changes since his previous labs reveals an acute renal failure in the BUN of 156 and a creatinine of 5.2, potassium 5.9 and sodium 131 CPKs within normal limits, therefore rhabdo unlikely. Concern for renal vein thrombosis or urinary obstruction. Unlikely Urinary obstruction because the patient does have a Curiel and he is producing urine. UA is unremarkable. We'll need to get a renal vein ultrasound in am I spoke w Dr Vianca Gomez , fire tower keeper. The plan is for heparinization 5000 units bolus followed by an infusion of 1000 units an hour. -pt is to receive normal saline @ 100 mL an hour l will repeat this chemistry ,if its the same-will treat the hyperkalemia spoke with Kailey at ICU and pt can be admitted to ICU <Casi Bernard - Last Filed: 04/20/17 03:29> *DC/Admit/Observation/Transfer - Attestations Scribe Attestion: 04/20/17 02:09 Documentation prepared by Byron Goldstein, acting as center medical specialist for Casi Bernard MD/DO. <Byron Goldstein - Last Filed: 04/20/17 02:08> - Discharge Dispostion Admit: Yes <Casi Bernard - Last Filed: 04/20/17 03:29> Diagnosis at time of Disposition: Hyperkalemia DVT, bilateral lower limbs Qualifiers: Affected thrombotic vein of extremity: unspecified vein of extremity Chronicity : acute Qualified Code(s): I82.403 - Acute embolism and thrombosis of unspecified deep veins of lower extremity, bilateral Acute renal failure Qualifiers: Acute renal failure type: unspecified Qualified Code(s): N17.9 - Acute kidney failure, unspecified Anemia Qualifiers: Anemia type: other cause Other causes of anemia: other cause, not classified Qualified Code(s): D64.89 - Other specified anemias S/P TKR (total knee replacement) Qualifiers: Laterality: right Qualified Code(s): Z96.651 - Presence of right artificial knee joint - Referrals Referrals: Julissa Joseph MD [Primary Care Provider] - - Patient Instructions - Post Discharge Activity
[2017-04-19 22:17] LABS: BASOPHIL 0.8 % (0-2.0); EOSINOPHIL 0.9 % (0-4.5); MCH 28.9 pg (25.7-33.7); MCHC 32.5 g/dl (32.0-35.9); MEAN CELL VOLUME 88.7 fl (80-96); MEAN PLT VOLUME 11.7 fl (7.5-11.1); PLATELET COUNT 181 K/MM3 (134-434); RDW 14.7 % (11.9-15.9); WHITE BLOOD COUNT 12.1 K/mm3 (4.0-10.0)
[2017-04-19 22:25] LABS: INR 1.39 (0.82-1.09); PROTHROMBIN TIME (PATIENT) 15.7 SEC (9.98-11.88)
[2017-04-19 22:27] LABS: ACTIVATED PTT 26.1 SECONDS (26.9-34.4)
[2017-04-19 22:39] LABS: ALBUMIN 2.3 g/dl (3.4-5.0); ANION GAP 12 (8-16); BILIRUBIN,TOTAL 0.6 mg/dL (0.2-1.0); CALCIUM 7.3 mg/dL (8.5-10.1); CO2 20 mmol/L (21-32); CREATININE 5.2 mg/dL (0.7-1.3); GLUCOSE,RANDOM 154 mg/dL (74-106); SGPT/ALT 10 U/L (12-78); TOT PROT 5.8 g/dl (6.4-8.2)
[2017-04-19 22:41] LABS: ALK PHOS 71 U/L (45-117); CPK 166 IU/L (39-308); TROPONIN I < 0.02 ng/ml (0.00-0.05)
[2017-04-19 22:45] LABS: URINE APPEARANCE SLCLOUDY; URINE BILIRUBIN NEGATIVE (NEGATIVE); URINE BLOOD 2+ (NEGATIVE); URINE COLOR LTYELLOW; URINE GLUCOSE (UA) NEGATIVE (NEGATIVE); URINE KETONE NEGATIVE (NEGATIVE); URINE NITRITE NEGATIVE (NEGATIVE); URINE PROTEIN NEGATIVE (NEGATIVE); URINE UROBILINOGEN NEGATIVE mg/dL (0.2-1.0)
[2017-04-19 22:58] LABS: URINE BACTERIA RARE /hpf (NONE SEEN); URINE HYALINE CAST 5 /lpf; URINE MUCUS RARE; URINE RBC 27 /hpf (0-3); URINE WBC 25 /hpf (3-5)
[2017-04-19 23:08] LABS: SGOT/AST 21 U/L (15-37)
[2017-04-20] MEDS ORDERED: HEPARIN NA (PORCINE) 5,000 UNITS/ML 1ML VIAL IVPUSH PRN ×6 (02:55→16:38)
[2017-04-20] MEDS ORDERED: HEPARIN INFUSION - 25,000 UNITS/500 ML INFUS.BAG IVPB ONE (02:58)
[2017-04-20] MEDS ORDERED: HEPARIN NA (PORCINE) 5,000 UNITS/ML 1ML VIAL ONE (02:58)
[2017-04-20] MEDS ORDERED: SODIUM CHLORIDE 1,000 ML IV SCH (03:00)
[2017-04-20] MEDS ORDERED: HEPARIN - 25,000 UNIT in SODIUM CHLORIDE 495 ML IV SCH (03:00)
[2017-04-20 03:44] LABS: ANION GAP 13 (8-16); CALCIUM 7.6 mg/dL (8.5-10.1); CO2 21 mmol/L (21-32); CREATININE 3.9 mg/dL (0.7-1.3); GLUCOSE,RANDOM 150 mg/dL (74-106)
--- NOTE | 2017-04-20 04:40 | CONSULT ---
Consult Consult Specialty:: Pulmonary/ Critical Care Referred by:: Jake Reason for Consultation:: NILAM, DVT - History of Present Illness Chief Complaint: LE pain, abdominal pain History of Present Illness: 76 y/o man with h/o of DVT (on eliquis), HTN, HLD, NIDDM, BPH and osteoarthritis post op day 7 from right total knee replacement who was brought from [facility] via EMS complaining of LE pain and urinary retention that began earlier this week. Per [facility] staff, pt underwent LE doppler which was positive for b/l LE DVT. He was subsequently referred to ED. In the ED, VS: T 98.5, HR 57, BP 107/57, RR 16, O2 97%. His labs were notable for BUN/Creat 156/5.2 with K 5.9 and hgb 8. His prior BUN/Creat had been normal and hgb noted to be down post op, guaic done which was negative. He was started on heparin gtt for DVTs. Pt with rodriguez, making urine. Per pt he had not urinated or moved his bowels since the surgery and was in significant pain prior to the rodriguez being placed. His pain has improved since placement of rodriguez. Given that pt was making good urine and presented with elevated creatinine, there was concern for renal vein thrombosis and pt was given IVF and transferred to ICU. On arrival to ICU pts creatinine noted to be downtrending with rodriguez and IVF, likely post-obstructive renal failure, though canot r/o renal vein thrombosis. Active Medications Heparin Sodium (Porcine) (Heparin -) 5,000 unit IVPUSH PRN PRN PRN Reason: Heparin Last Admin: 04/20/17 03:17 Dose: 5,000 unit Heparin Sodium (Porcine) 25, (000 unit/ Sodium Chloride) 500 mls @ 20 mls/hr IV TITR NESSA; 1,000 UNIT/HR PRN Reason: Protocol Last Admin: 04/20/17 03:42 Dose: 1,000 unit/hr, 20 mls/hr Sodium Chloride (Normal Saline -) 1,000 mls @ 100 mls/hr IV ASDIR NESSA Last Admin: 04/20/17 03:52 Dose: 100 mls/hr - History Source History Provided By: Patient, Medical Record - Past Medical History Cardio/Vascular: Yes: HTN, Hyperlipdemia Renal/: Yes: BPH Heme/Onc: Yes: Other (DVT ) Musculoskeletal: Yes: Osteoarthritis - Past Surgical History Past Surgical History: Yes: Joint Replacement - Alcohol/Substance Use Hx Alcohol Use: No - Smoking History Smoking history: Never smoked Have you smoked in the past 12 months: No - Social History Usual Living Arrangement: With Spouse <Marleen Sauer - Last Filed: 04/20/17 05:01> Home Medications <Marleen Sauer - Last Filed: 04/20/17 05:01> <Wilfred Mike MD - Last Filed: 04/20/17 12:51> - Allergies Allergies/Adverse Reactions: Allergies Allergy/AdvReac Type Severity Reaction Status Date / Time codeine Allergy Severe Nausea Verified 04/19/17 21:25 - Home Medications Home Medications: Ambulatory Orders Amlodipine Besylate 10 mg PO DAILY 04/05/17 Apixaban [Eliquis] 2.5 mg PO DAILY 04/05/17 Atenolol [Tenormin -] 100 mg PO DAILY 04/05/17 Gabapentin 100 mg PO TID 04/05/17 Interferon Beta-1A/Albumin [Rebif 44 Mcg/0.5 ml Syringe] 44 mcg SQ ASDIR Metformin HCl [Metformin HCl ER] 500 mg PO DAILY 04/05/17 Omeprazole 20 mg PO DAILY 04/05/17 Tamsulosin HCl [Flomax -] 0.4 mg PO DAILY 04/05/17 Oxycodone HCl/Acetaminophen [Percocet 5-325 mg Tablet] 1 - 2 tab PO Q6H #50 tab MDD 8 04/12/17 Oxycodone HCl/Acetaminophen [Percocet 10-325 mg Tablet] 1 each PO QID #50 tablet MDD 4 04/14/17 Review of Systems - Review of Systems Cardiovascular: denies: Chest Pain Respiratory: denies: SOB Gastrointestinal: reports: Abdominal Pain, Constipation Genitourinary: reports: Other (anuric, associated abdominal pain) <Marleen Sauer - Last Filed: 04/20/17 05:01> Physical Exam Vital Signs: Vital Signs Temperature 98.6 F 04/19/17 22:28 Pulse Rate 60 04/20/17 01:21 Respiratory Rate 20 04/20/17 01:21 Blood Pressure 104/55 04/20/17 01:21 O2 Sat by Pulse Oximetry (%) 99 04/20/17 01:21 Constitutional: Yes: Well Nourished Eyes: Yes: PERRL HENT: Yes: Atraumatic Cardiovascular: Yes: Regular Rate and Rhythm Respiratory: Yes: CTA Bilaterally. No: Rales, Rhonchi, Wheezes Gastrointestinal: Yes: Normal Bowel Sounds, Soft, Abdomen, Obese, Tenderness ( mild tenderness, improved from prior) Musculoskeletal: Yes: Joint Swelling (RLE swelling and ecchymosis) Edema: Yes Edema: LLE: 3+, RLE: 3+ Peripheral Pulses WNL: Yes Integumentary: Yes: Bruising (RLE brusing) Wound/Incision: Yes: Clean/Dry, Well Approximated, Dressing Dry and Intact Neurological: Yes: Alert, Oriented, Cran Nerves II-XII Intact ...Motor Strength: WNL (Upper Extremities) Labs: CBC, BMP 04/19/17 21:54 04/20/17 03:15 <Marleen Sauer - Last Filed: 04/20/17 05:01> Vital Signs: Vital Signs Temperature 98.5 F 04/20/17 08:00 Pulse Rate 64 04/20/17 12:00 Respiratory Rate 18 04/20/17 12:00 Blood Pressure 116/59 04/20/17 12:00 O2 Sat by Pulse Oximetry (%) 100 04/20/17 09:00 Labs: CBC, BMP 04/20/17 08:30 04/20/17 08:30 <Wilfred Mike MD - Last Filed: 04/20/17 12:51> Imaging - Results Chest X-ray: Image Reviewed Ultrasound: Report Reviewed <Marleen Sauer - Last Filed: 04/20/17 05:01> Problem List - Problems (1) HTN (hypertension) Code(s): I10 - ESSENTIAL (PRIMARY) HYPERTENSION (2) BPH (benign prostatic hyperplasia) Code(s): N40.0 - BENIGN PROSTATIC HYPERPLASIA WITHOUT LOWER URINRY TRACT SYMP (3) HLD (hyperlipidemia) Code(s): E78.5 - HYPERLIPIDEMIA, UNSPECIFIED (4) Acute renal failure Code(s): N17.9 - ACUTE KIDNEY FAILURE, UNSPECIFIED QualifierTitle: Acute renal failure type: unspecified Qualified Code(s): N17.9 - Acute kidney failure, unspecified (5) Anemia Code(s): D64.9 - ANEMIA, UNSPECIFIED QualifierTitle: Anemia type: other cause Other causes of anemia: other cause, not classified Qualified Code(s): D64.89 - Other specified anemias (6) DVT, bilateral lower limbs Code(s): I82.403 - ACUTE EMBOLISM AND THOMBOS UNSP DEEP VEINS OF LOW EXTRM, BI QualifierTitle: Affected thrombotic vein of extremity: unspecified vein of extremity Chronicity: acute Qualified Code(s): I82.403 - Acute embolism and thrombosis of unspecified deep veins of lower extremity, bilateral (7) Hyperkalemia Code(s): E87.5 - HYPERKALEMIA (8) S/P TKR (total knee replacement) Code(s): Z96.659 - PRESENCE OF UNSPECIFIED ARTIFICIAL KNEE JOINT QualifierTitle: Laterality: right Qualified Code(s): Z96.651 - Presence of right artificial knee joint <Marleen Sauer - Last Filed: 04/20/17 05:01> Assessment/Plan ASSESSMENT: 76 y/o man with h/o DVT (on eliquis), HTN, HLD, NIDDM, BPH and osteoarthritis post op from R TKR who was brought [place] [facility] for LE pain and urinary retention, found to have NILAM and b/l LE DVTs now s/p rodriguez placement with downtrending creatnine likely 2/2 post-obstructive renal failure. PLAN: -plan per renal consult -renal US -trend creatnine and UOP -continue IVF -heparin gtt for DVT -medical management of electrolytes as indicated -pain control -bowel regimen PPX: -heparin gtt -GI ppx - indication NILAM CODE: FULL Marleen Sauer ACNP CCT: 35 mins <Marleen Sauer - Last Filed: 04/20/17 05:01> Pt seen and examined, agree with above assessment and plan. Wilfred Mike MD <Wilfred Mike MD - Last Filed: 04/20/17 12:51>
[2017-04-20 05:16] VITALS: BMI 35.6
[2017-04-20] MEDS ORDERED: SENNOSIDES 8.6MG TABLET (FP) PO SCH ×2 (05:30→22:00)
[2017-04-20] MEDS ORDERED: PANTOPRAZOLE 40 MG TABLET (FP) PO SCH ×2 (05:30→10:00)
[2017-04-20] MEDS ORDERED: ATENOLOL 50 MG TABLET (FP) PO SCH ×2 (05:30→10:00)
[2017-04-20] MEDS ORDERED: TAMSULOSIN HCL 0.4 MG CAP.ER.24H (FP) PO SCH ×2 (05:30→08:30)
[2017-04-20] MEDS ORDERED: amLODIPine BESYLATE 10 MG TABLET (FP) PO SCH ×2 (05:30→10:00)
--- NOTE | 2017-04-20 08:08 | HP ---
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 Per [facility] staff, pt underwent LE doppler which was positive for b/l LE DVT. He was subsequently referred to ED. - Past Medical History Cardiovascular: Yes: HTN, Hyperlipdemia Renal/: Yes: BPH Heme/Onc: Yes: Other (DVT ) Musculoskeletal: Yes: Osteoarthritis - Past Surgical History Past Surgical History: Yes: Joint Replacement - Smoking History Smoking history: Never smoked Have you smoked in the past 12 months: No - Alcohol/Substance Use Hx Alcohol Use: No Home Medications - Allergies Allergies/Adverse Reactions: Allergies Allergy/AdvReac Type Severity Reaction Status Date / Time codeine Allergy Severe Nausea Verified 04/19/17 21:25 - Home Medications Home Medications: Ambulatory Orders Amlodipine Besylate 10 mg PO DAILY 04/05/17 Apixaban [Eliquis] 2.5 mg PO DAILY 04/05/17 Atenolol [Tenormin -] 100 mg PO DAILY 04/05/17 Gabapentin 100 mg PO TID 04/05/17 Interferon Beta-1A/Albumin [Rebif 44 Mcg/0.5 ml Syringe] 44 mcg SQ ASDIR Metformin HCl [Metformin HCl ER] 500 mg PO DAILY 04/05/17 Omeprazole 20 mg PO DAILY 04/05/17 Tamsulosin HCl [Flomax -] 0.4 mg PO DAILY 04/05/17 Oxycodone HCl/Acetaminophen [Percocet 5-325 mg Tablet] 1 - 2 tab PO Q6H #50 tab MDD 8 04/12/17 Oxycodone HCl/Acetaminophen [Percocet 10-325 mg Tablet] 1 each PO QID #50 tablet MDD 4 04/14/17 Review of Systems - Review of Systems Cardiovascular: reports: No Symptoms. denies: Chest Pain, Palpitations Respiratory: reports: No Symptoms. denies: SOB Genitourinary: reports: Incontinence Musculoskeletal: reports: Extremity Pain, Joint Pain Neurological: reports: No Symptoms Physical Examination Vital Signs: Vital Signs Temperature 98.1 F 04/20/17 04:49 Pulse Rate 63 04/20/17 04:49 Respiratory Rate 18 04/20/17 06:00 Blood Pressure 97/78 04/20/17 06:00 O2 Sat by Pulse Oximetry (%) 99 04/20/17 05:44 Cardiovascular: Yes: Regular Rate and Rhythm Respiratory: Yes: Regular, CTA Bilaterally Gastrointestinal: Yes: Normal Bowel Sounds, Soft. No: Tenderness Renal/: Yes: Dugan Present Labs: CBC, BMP 04/19/17 21:54 04/20/17 03:15 Imaging - Results Ultrasound: Report Reviewed Problem List - Problems (1) Acute renal failure Assessment/Plan: MAY BE OBSTRUCTIVE MONITOR ON IVF DUGAN Code(s): N17.9 - ACUTE KIDNEY FAILURE, UNSPECIFIED Qualifiers: Acute renal failure type: unspecified Qualified Code(s): N17.9 - Acute kidney failure, unspecified (2) Anemia Assessment/Plan: FOLLOW LEVELS Code(s): D64.9 - ANEMIA, UNSPECIFIED Qualifiers: Anemia type: other cause Other causes of anemia: other cause, not classified Qualified Code(s): D64.89 - Other specified anemias (3) BPH (benign prostatic hyperplasia) Assessment/Plan: ABOVE Code(s): N40.0 - BENIGN PROSTATIC HYPERPLASIA WITHOUT LOWER URINRY TRACT SYMP (4) DVT, bilateral lower limbs Assessment/Plan: HEPARIN HEM CONSULT WAS ON ELIIS 2.5--CARE HOME OPTIONS WILL NEED TO BE DECIDED Code(s): I82.403 - ACUTE EMBOLISM AND THOMBOS UNSP DEEP VEINS OF LOW EXTRM, BI Qualifiers: Affected thrombotic vein of extremity: unspecified vein of extremity Chronicity: acute Qualified Code(s): I82.403 - Acute embolism and thrombosis of unspecified deep veins of lower extremity, bilateral (5) S/P TKR (total knee replacement) Assessment/Plan: ORTHO FOLLOW UP Code(s): Z96.659 - PRESENCE OF UNSPECIFIED ARTIFICIAL KNEE JOINT Qualifiers: Laterality: right Qualified Code(s): Z96.651 - Presence of right artificial knee joint
[2017-04-20 08:59] LABS: BASOPHIL 0.5 % (0-2.0); EOSINOPHIL 2.5 % (0-4.5); MCH 28.9 pg (25.7-33.7); MCHC 32.4 g/dl (32.0-35.9); MEAN CELL VOLUME 89.1 fl (80-96); MEAN PLT VOLUME 11.4 fl (7.5-11.1); NEUTROPHILS 77.5 % (42.8-82.8); PLATELET COUNT 182 K/MM3 (134-434); RDW 14.9 % (11.9-15.9); WHITE BLOOD COUNT 10.5 K/mm3 (4.0-10.0)
[2017-04-20] MEDS ORDERED: HYDROmorphone HCL CARPU-JECT 2 MG/1 ML DISP.SYRIN IVPUSH PRN (09:06)
[2017-04-20 09:07] LABS: URINE LEUK ESTERASE 1+ (NEGATIVE)
[2017-04-20 09:42] LABS: ALBUMIN 2.3 g/dl (3.4-5.0); ALK PHOS 70 U/L (45-117); ANION GAP 12 (8-16); BILIRUBIN,TOTAL 0.7 mg/dL (0.2-1.0); CALCIUM 7.2 mg/dL (8.5-10.1); CO2 20 mmol/L (21-32); CREATININE 2.7 mg/dL (0.7-1.3); GLUCOSE,RANDOM 157 mg/dL (74-106); SGOT/AST 20 U/L (15-37); SGPT/ALT 10 U/L (12-78); TOT PROT 5.3 g/dl (6.4-8.2)
[2017-04-20] MEDS ORDERED: ATENOLOL 25 MG TABLET (FP) PO SCH (10:00)
--- NOTE | 2017-04-20 10:15 | CONSULT ---
Consult - text type - Consultation Consultation Note: FULL CONSULT DICTATED IMP: 8 DAYS S/P RIGHT TKR NOW WITH B DVT AND ACUTE RENAL FAILURE PLAN: TREAT DVT AND ARF MEDICALLY, PT FOR RIGHT KNEE
--- NOTE | 2017-04-20 10:23 | CON.NEP ---
Consult Consult Specialty:: Nephrology Referred by:: Dr. Joseph Reason for Consultation:: Acute Kidney Injury - History of Present Illness Chief Complaint: LE pain, urinary retention History of Present Illness: This is a 76 year old gentleman with PMhx of DVT on Eliquis, Hypertenion, HLD, NIIDM, BPH s/p recent knee replacement who presented with LE swelling and pain, urinary retention and found to have b/l DVT and Acute Renal Failure. Pt was noted to have urinary retention and constipation. Pt has outpatient labs that showed a Cr of 5.6 and BUN of >150. Curiel catheter was place on the with good urine output. Pt denies any NSIAID use, no contrast exposure. No flank pain. No N/V/D. NO Abx use. No rash. No Hx of CKD. No kidney stones in the past. Pt is on interferon for MS. - History Source History Provided By: Patient Limitations to Obtaining History: No Limitations - Past Medical History Cardio/Vascular: Yes: HTN, Hyperlipdemia Renal/: Yes: BPH Musculoskeletal: Yes: Osteoarthritis - Past Surgical History Past Surgical History: Yes: Joint Replacement - Alcohol/Substance Use Hx Alcohol Use: No - Smoking History Smoking history: Never smoked Have you smoked in the past 12 months: No - Social History Usual Living Arrangement: With Spouse Home Medications - Allergies Allergies/Adverse Reactions: Allergies Allergy/AdvReac Type Severity Reaction Status Date / Time codeine Allergy Severe Nausea Verified 04/19/17 21:25 - Home Medications Home Medications: Ambulatory Orders Amlodipine Besylate 10 mg PO DAILY 04/05/17 Apixaban [Eliquis] 2.5 mg PO DAILY 04/05/17 Atenolol [Tenormin -] 100 mg PO DAILY 04/05/17 Gabapentin 100 mg PO TID 04/05/17 Interferon Beta-1A/Albumin [Rebif 44 Mcg/0.5 ml Syringe] 44 mcg SQ ASDIR Metformin HCl [Metformin HCl ER] 500 mg PO DAILY 04/05/17 Omeprazole 20 mg PO DAILY 04/05/17 Tamsulosin HCl [Flomax -] 0.4 mg PO DAILY 04/05/17 Oxycodone HCl/Acetaminophen [Percocet 5-325 mg Tablet] 1 - 2 tab PO Q6H #50 tab MDD 8 11/14/17 Oxycodone HCl/Acetaminophen [Percocet 10-325 mg Tablet] 1 each PO QID #50 tablet MDD 4 04/14/17 Family Disease History - Family Disease History Family History: Unremarkable Review of Systems - Review of Systems Constitutional: reports: No Symptoms Eyes: reports: No Symptoms HENT: reports: No Symptoms Neck: reports: No Symptoms Cardiovascular: reports: No Symptoms Respiratory: reports: No Symptoms Gastrointestinal: reports: No Symptoms Genitourinary: reports: No Symptoms Musculoskeletal: reports: No Symptoms Neurological: reports: No Symptoms Nephrology Consult - Height Height: 5 ft 9 in - Weight Weight: 109.316 kg - BMI Body Mass Index (BMI): 35.6 - Lab Results CBC,BMP: CBC, BMP 04/20/17 08:30 04/20/17 08:30 Anion Gap: Anion Gap Anion Gap 12 (8-16) 04/20/17 08:30 - Imaging Chest X-ray: Report Reviewed - Physical Examination Vital Signs: Vital Signs Temperature 98.5 F 04/20/17 08:00 Pulse Rate 61 04/20/17 08:00 Respiratory Rate 18 04/20/17 10:00 Blood Pressure 113/55 04/20/17 10:00 O2 Sat by Pulse Oximetry (%) 100 04/20/17 09:00 Constitutional: Yes: Well Nourished, No Distress, Calm Eyes: Yes: Conjunctiva Clear HENT: Yes: Atraumatic, Normocephalic Neck: Yes: Supple Cardiovascular: Yes: Regular Rate and Rhythm, S1, S2. No: Murmur, Rub Respiratory: Yes: Regular, CTA Bilaterally. No: Rales, Rhonchi Gastrointestinal: Yes: Normal Bowel Sounds, Soft Renal/: Yes: Curiel Present. No: Anuria, Bladder Distention, CVA Tenderness - Left, CVA Tenderness - Right, Hematuria, Oliguria Extremities: No: Cold, Cool, Cyanosis Edema: Yes Edema: LLE: 1+, RLE: 1+ Wound/Incision: Yes: Clean/Dry Neurological: Yes: Alert, Oriented Problem List - Problems (1) Acute renal failure Code(s): N17.9 - ACUTE KIDNEY FAILURE, UNSPECIFIED Qualifiers: Acute renal failure type: unspecified Qualified Code(s): N17.9 - Acute kidney failure, unspecified (2) Anemia Code(s): D64.9 - ANEMIA, UNSPECIFIED Qualifiers: Anemia type: other cause Other causes of anemia: other cause, not classified Qualified Code(s): D64.89 - Other specified anemias (3) BPH (benign prostatic hyperplasia) Code(s): N40.0 - BENIGN PROSTATIC HYPERPLASIA WITHOUT LOWER URINRY TRACT SYMP (4) DVT, bilateral lower limbs Code(s): I82.403 - ACUTE EMBOLISM AND THOMBOS UNSP DEEP VEINS OF LOW EXTRM, BI Qualifiers: Affected thrombotic vein of extremity: unspecified vein of extremity Chronicity: acute Qualified Code(s): I82.403 - Acute embolism and thrombosis of unspecified deep veins of lower extremity, bilateral (5) HTN (hypertension) Code(s): I10 - ESSENTIAL (PRIMARY) HYPERTENSION (6) S/P TKR (total knee replacement) Code(s): Z96.659 - PRESENCE OF UNSPECIFIED ARTIFICIAL KNEE JOINT Qualifiers: Laterality: right Qualified Code(s): Z96.651 - Presence of right artificial knee joint Assessment/Plan 76 year old gentleman with PMhx of DVT on Eliquis, Hypertenion, HLD, NIIDM, BPH s/p recent knee replacement who presented with LE swelling and pain, urinary retention and found to have b/l DVT and Acute Renal Failure. Pt was noted to have urinary retention and constipation. #Acute Renal Failure Likely secondary to bladder outlet obstruction secondary to BPH +/- Immobility/ Opioids but need to r/o renal vein thrombosis, ATN Renal function improving by the time the pt got to the ER (Cr 5.6 -> 5.2) Pt is making urine and despite high BUN no overt signs of uremia Check Urine studies, Kidney/Bladder US with Renal vein Doppler Continue Heparin gtt, isotnonic saline continue Curiel, flomax, add proscar Keep MAP > 65 #Extensive LE DVT on heparin gtt ? failure of Eliquis, ? need to size changer Heme following Consider Vascular Sx Eval for IVC filter( (? if pt already has a filter) #Hypertension BP is low/marginal consider hold atenolol/or hold parameters #Anemia stool occult blood negative check iron studies Thank you Will follow Ayden Garber DO
--- NOTE | 2017-04-20 10:38 | EKG ---
Test Reason : Blood Pressure : / mmHG Vent. Rate : 058 BPM Atrial Rate : 058 BPM P-R Int : 146 ms QRS Dur : 088 ms QT Int : 444 ms P-R-T Axes : 023 007 012 degrees QTc Int : 435 ms SINUS BRADYCARDIA OTHERWISE NORMAL ECG WHEN COMPARED WITH ECG OF 15-MAR-2017 08:46, PREMATURE SUPRAVENTRICULAR COMPLEXES ARE NO LONGER PRESENT T WAVE INVERSION NOW EVIDENT IN ANTERIOR LEADS Confirmed by LUIS FLORES, JASSI ([id number]) on 04/20/2017 10:37:54 AM Referred By: Confirmed By:JASSI SMITH MD
--- NOTE | 2017-04-20 10:42 | CONS ---
DATE OF CONSULTATION: 04/20/2017 ORTHOPEDIC CONSULTATION HISTORY OF PRESENT ILLNESS: The patient is a 76-year-old male well known to me, status post right total knee replacement 8 days ago. The patient was admitted last night from the short-term nursing facility, complaining of increased pain in both of his legs and swelling. ER evaluation of the patient revealed bilateral lower extremity DVTs, as well as acute renal failure. The patient was thus admitted to the hospital, admitted to the intensive care unit. The patient was heparinized to treat the DVT, and Orthopedics has been consulted. PHYSICAL EXAMINATION: He was has swelling in both of his lower extremities, weakness. The calves are soft bilaterally, with a negative Homans sign. His Aquacel dressing is on, clean and dry, with minimal staining. No surrounding erythema. Good m motion of his ankles and his toes. Poor strength with straight leg raise of the right lower extremity. Passive range of motion is 0 to 80 degrees. Actively it is very limited due to his weakened condition and edema in his legs. IMPRESSION: 1. Bilateral deep venous thromboses. 2. Acute renal failure in a patient 8 days status post right total knee replacement. PLAN: Treat the acute renal failure and DVTs medically with heparinization and other modalities. Arrange for physical therapy at the bedside. Keep the Aquacel dressing in place sterile underneath there. I will follow him while he is in the hospital. JHOANA FLORES M.D. JOSE [id number]
--- NOTE | 2017-04-20 10:55 | CONSULT ---
Consult Consult Specialty:: Hematology Reason for Consultation:: Bilateral DVT - History of Present Illness History of Present Illness: 76 year old gentleman with PMhx of DVT on Eliquis, Hypertenion, HLD, NIIDM, BPH s/p recent knee replacement who presented with LE swelling and pain, urinary retention and found to have b/l DVT and Acute Renal Failure. Pt was noted to have urinary retention and constipation. Patient's hx of DVT he says he did have an initial DVT 10 years ago and he was on coumadin and then on eliquis When he was recently admitted for TKR, he was off of eliquis as per him for ? duration and then was resumed post surgery He was at [facility] and was not able to participate in Rehab as he started to experience bilateral LE pain. Of note, his last vascular study post op did not have any evidence of DVT ( was done as he had calf pain on the right side ) Otherwise, presently he denies any chest pain, shortness of breath, abdominal pain . - History Source History Provided By: Patient, Medical Record Limitations to Obtaining History: No Limitations - Past Medical History Cardio/Vascular: Yes: HTN, Hyperlipdemia Renal/: Yes: BPH Musculoskeletal: Yes: Osteoarthritis - Past Surgical History Past Surgical History: Yes: Joint Replacement - Alcohol/Substance Use Hx Alcohol Use: No - Smoking History Smoking history: Never smoked Have you smoked in the past 12 months: No - Social History Usual Living Arrangement: With Spouse Home Medications - Allergies Allergies/Adverse Reactions: Allergies Allergy/AdvReac Type Severity Reaction Status Date / Time codeine Allergy Severe Nausea Verified 04/19/17 21:25 - Home Medications Home Medications: Ambulatory Orders Amlodipine Besylate 10 mg PO DAILY 04/05/17 Apixaban [Eliquis] 2.5 mg PO DAILY 04/05/17 Atenolol [Tenormin -] 100 mg PO DAILY 04/05/17 Gabapentin 100 mg PO TID 04/05/17 Interferon Beta-1A/Albumin [Rebif 44 Mcg/0.5 ml Syringe] 44 mcg SQ ASDIR Metformin HCl [Metformin HCl ER] 500 mg PO DAILY 04/05/17 Omeprazole 20 mg PO DAILY 04/05/17 Tamsulosin HCl [Flomax -] 0.4 mg PO DAILY 04/05/17 Oxycodone HCl/Acetaminophen [Percocet 5-325 mg Tablet] 1 - 2 tab PO Q6H #50 tab MDD 8 04/12/17 Oxycodone HCl/Acetaminophen [Percocet 10-325 mg Tablet] 1 each PO QID #50 tablet MDD 4 04/14/17 Family Disease History - Family Disease History Family History: Denies Review of Systems - Review of Systems Constitutional: denies: Chills, Diaphoresis, Fever, Lethargy, Loss of Appetite Eyes: denies: Blurred Vision Respiratory: reports: No Symptoms Gastrointestinal: reports: No Symptoms Musculoskeletal: reports: Extremity Pain Neurological: reports: No Symptoms Hematology/Lymphatic: denies: Easily Bruised, Excessive Bleeding, Swollen Glands Physical Exam Vital Signs: Vital Signs Temperature 98.5 F 04/20/17 08:00 Pulse Rate 61 04/20/17 08:00 Respiratory Rate 18 04/20/17 10:00 Blood Pressure 113/55 04/20/17 10:00 O2 Sat by Pulse Oximetry (%) 100 04/20/17 09:00 Constitutional: Yes: Well Nourished, No Distress, Calm Eyes: Yes: Conjunctiva Clear HENT: Yes: Atraumatic, Normocephalic Neck: Yes: Supple Cardiovascular: Yes: Regular Rate and Rhythm Respiratory: Yes: Regular, CTA Bilaterally Gastrointestinal: Yes: Normal Bowel Sounds, Soft Renal/: Yes: Curiel Present Extremities: Yes: Other (Bilateral swelling present , bruise+) Edema: Yes Labs: CBC, BMP 04/20/17 08:30 04/20/17 08:30 Imaging - Results Ultrasound: Report Reviewed Assessment/Plan History of DVT ( as per him 10 years ago ?etiology) , was on Coumadin and then later was on Eliquis until recently. now with Extensive bilateral DVT Acute renal failure. Recent TKR ( 04/13/2017) Anemia Leucocytosis Other co-morbidities: HTN, HLD, DM, BPH. -Heparin drip for now , with close monitoring of PTT -Vascular consult ( pt denies of having a IVC filter in the past ) -Choice of rn long term care agent to be determined ( coumadin vs Other NOACs when renal function improves) -Renal dopplers -US abdomen, to determine prostate. -OutPt screening for malignancy. -renal consult noted -screening anemia labs -monitor white count, likely reactive.
[2017-04-20 11:32] LABS: LDH 381 U/L (87-241)
[2017-04-20 11:37] LABS: FERRITIN 471.089 ng/ml (16.4-293.9)
--- NOTE | 2017-04-20 12:15 | EKG ---
Test Reason : Blood Pressure : / mmHG Vent. Rate : 062 BPM Atrial Rate : 062 BPM P-R Int : 156 ms QRS Dur : 086 ms QT Int : 428 ms P-R-T Axes : 022 -02 003 degrees QTc Int : 434 ms NORMAL SINUS RHYTHM NORMAL ECG WHEN COMPARED WITH ECG OF 19-APR-2017 23:01, NO SIGNIFICANT CHANGE WAS FOUND Confirmed by JASSI SMITH MD ([id number]) on 04/20/2017 12:14:35 PM Referred By: DANNIELLE SALAZAR DR Confirmed By:JASSI SMITH MD
[2017-04-20 13:13] LABS: URINE CREATININE 36.3 mg/dL (20-370)
--- NOTE | 2017-04-20 14:29 | PN ---
Physical Exam: SUBJECTIVE: The patient is a 76M with a PMH of DVT, currently on eliquis, HTN, HLD, NIDDM, BPH, osteoarthritis s/p R total knee replacement 7 days ago who presented to the ED with LE pain and urinary retention that began earlier this week. He had a doppler done at the [facility] which revealed b/l LE DVT's and sent to the ED. He had a rodriguez catheter placed which drained 2L's. BUN/Cr have improved. The patient is complaining of leg pain, but otherwise has no acute complaints. No overnight events. OBJECTIVE: Vital Signs Period Temp Pulse Resp BP Sys/Sharma Pulse Ox Last 24 Hr 98.1 F-98.6 F 57-64 16-20 97-116/55-78 95-100 GENERAL: The patient is awake, alert, and fully oriented, in no acute distress. HEAD: Normal with no signs of trauma. EYES: PERRL, extraocular movements intact, sclera anicteric, conjunctiva clear. No ptosis. NECK: Trachea midline, full range of motion, supple. LUNGS: Breath sounds equal, clear to auscultation bilaterally, no wheezes, no crackles, no accessory muscle use. HEART: Regular rate and rhythm, S1, S2 without murmur, rub or gallop. ABDOMEN: Soft, nontender, nondistended, normoactive bowel sounds, no guarding, no rebound, no hepatosplenomegaly, no masses. EXTREMITIES: 2+ pulses, warm, well-perfused, no edema. Scars present, nonerythematous, nonpurulent, covered. 3+ pitting edema in b/l LE. NEUROLOGICAL: Cranial nerves II through XII grossly intact. Normal speech, gait not observed. PSYCH: Normal mood, normal affect. SKIN: Warm, dry, normal turgor, no rashes or lesions noted Laboratory Results - last 24 hr 04/19/17 04/19/17 04/19/17 21:54 21:54 21:54 WBC 12.1 H D RBC 2.85 L D Hgb 8.2 L D Hct 25.3 L D MCV 88.7 MCH 28.9 MCHC 32.5 RDW 14.7 Plt Count 181 MPV 11.7 H D Neutrophils % 75.0 Lymphocytes % 11.5 Monocytes % 11.8 H Eosinophils % 0.9 Basophils % 0.8 Retic Count PT with INR 15.70 H INR 1.39 H PTT (Actin FS) 26.1 L Sodium 131 L Potassium 5.9 H D Chloride 99 Carbon Dioxide 20 L D Anion Gap 12 BUN 156 H* D Creatinine 5.2 H D Creat Clearance w eGFR 10.90 Random Glucose 154 H D Lactic Acid Calcium 7.3 L Ferritin Total Bilirubin 0.6 AST 21 ALT 10 L Alkaline Phosphatase 71 LD Total Creatine Kinase 166 Creatine Kinase Index 1.0 CK-MB (CK-2) 1.772 Troponin I < 0.02 Total Protein 5.8 L Albumin 2.3 L Urine Color Urine Appearance Urine pH Ur Specific [place] Urine Protein Urine Glucose (UA) Urine Ketones Urine Blood Urine Nitrite Urine Bilirubin Urine Urobilinogen Ur Leukocyte Esterase Urine RBC Ur Epithelial Cells Urine Bacteria Hyaline Casts Urine Mucus U Random Total Protein Ur Random Sodium Ur Random Urea Nitrogn Urine Creatinine Stool Occult Blood Blood Type Antibody Screen 04/19/17 04/19/17 04/19/17 21:54 21:54 22:17 WBC RBC Hgb Hct MCV MCH MCHC RDW Plt Count MPV Neutrophils % Lymphocytes % Monocytes % Eosinophils % Basophils % Retic Count PT with INR INR PTT (Actin FS) Sodium Potassium Chloride Carbon Dioxide Anion Gap BUN Creatinine Creat Clearance w eGFR Random Glucose Lactic Acid 1.0 Calcium Ferritin Total Bilirubin AST ALT Alkaline Phosphatase LD Total Creatine Kinase Creatine Kinase Index CK-MB (CK-2) Troponin I Total Protein Albumin Urine Color Ltyellow Urine Appearance Slcloudy Urine pH 5.0 Ur Specific [place] 1.015 Urine Protein Negative Urine Glucose (UA) Negative Urine Ketones Negative Urine Blood 2+ H Urine Nitrite Negative Urine Bilirubin Negative Urine Urobilinogen Negative Ur Leukocyte Esterase 1+ H Urine RBC No Result Required. Ur Epithelial Cells Rare Urine Bacteria Rare Hyaline Casts 5 Urine Mucus Rare U Random Total Protein Ur Random Sodium Ur Random Urea Nitrogn Urine Creatinine Stool Occult Blood Blood Type A POSITIVE Antibody Screen Negative 04/20/17 04/20/17 04/20/17 02:34 03:15 08:30 WBC 10.5 H RBC 2.81 L Hgb 8.1 L Hct 25.1 L MCV 89.1 MCH 28.9 MCHC 32.4 RDW 14.9 Plt Count 182 MPV 11.4 H Neutrophils % 77.5 Lymphocytes % 10.3 Monocytes % 9.2 Eosinophils % 2.5 D Basophils % 0.5 Retic Count PT with INR INR PTT (Actin FS) Sodium 136 Potassium 4.4 D Chloride 102 Carbon Dioxide 21 Anion Gap 13 BUN 139 H* Creatinine 3.9 H D Creat Clearance w eGFR Random Glucose 150 H Lactic Acid Calcium 7.6 L Ferritin Total Bilirubin AST ALT Alkaline Phosphatase LD Total Creatine Kinase Creatine Kinase Index CK-MB (CK-2) Troponin I Total Protein Albumin Urine Color Urine Appearance Urine pH Ur Specific [place] Urine Protein Urine Glucose (UA) Urine Ketones Urine Blood Urine Nitrite Urine Bilirubin Urine Urobilinogen Ur Leukocyte Esterase Urine RBC Ur Epithelial Cells Urine Bacteria Hyaline Casts Urine Mucus U Random Total Protein Ur Random Sodium Ur Random Urea Nitrogn Urine Creatinine Stool Occult Blood Negative Blood Type Antibody Screen 04/20/17 04/20/17 04/20/17 08:30 08:30 08:30 WBC RBC Hgb Hct MCV MCH MCHC RDW Plt Count MPV Neutrophils % Lymphocytes % Monocytes % Eosinophils % Basophils % Retic Count 4.87 H PT with INR INR PTT (Actin FS) Sodium 137 Potassium 4.3 Chloride 105 Carbon Dioxide 20 L Anion Gap 12 BUN 121 H* Creatinine 2.7 H D Creat Clearance w eGFR 23.22 Random Glucose 157 H Lactic Acid Calcium 7.2 L Ferritin 471.089 H Cancelled Total Bilirubin 0.7 AST 20 ALT 10 L Alkaline Phosphatase 70 LD Total 381 H Creatine Kinase Creatine Kinase Index CK-MB (CK-2) Troponin I Total Protein 5.3 L Albumin 2.3 L Urine Color Urine Appearance Urine pH Ur Specific [place] Urine Protein Urine Glucose (UA) Urine Ketones Urine Blood Urine Nitrite Urine Bilirubin Urine Urobilinogen Ur Leukocyte Esterase Urine RBC Ur Epithelial Cells Urine Bacteria Hyaline Casts Urine Mucus U Random Total Protein Ur Random Sodium Ur Random Urea Nitrogn Urine Creatinine Stool Occult Blood Blood Type Antibody Screen 04/20/17 04/20/17 04/20/17 08:30 09:14 11:00 WBC RBC Hgb Hct MCV MCH MCHC RDW Plt Count MPV Neutrophils % Lymphocytes % Monocytes % Eosinophils % Basophils % Retic Count PT with INR INR PTT (Actin FS) 49.1 H D Sodium Potassium Chloride Carbon Dioxide Anion Gap BUN Creatinine Creat Clearance w eGFR Random Glucose Lactic Acid Calcium Ferritin Total Bilirubin AST ALT Alkaline Phosphatase LD Total Cancelled Creatine Kinase Creatine Kinase Index CK-MB (CK-2) Troponin I Total Protein Albumin Urine Color Urine Appearance Urine pH Ur Specific [place] Urine Protein Urine Glucose (UA) Urine Ketones Urine Blood Urine Nitrite Urine Bilirubin Urine Urobilinogen Ur Leukocyte Esterase Urine RBC Ur Epithelial Cells Urine Bacteria Hyaline Casts Urine Mucus U Random Total Protein 41 H Ur Random Sodium 57 Ur Random Urea Nitrogn 241 Urine Creatinine 36.3 Stool Occult Blood Blood Type Antibody Screen Active Medications Generic Name Dose Route Start Last Admin Trade Name Freq PRN Reason Stop Dose Admin Atenolol 25 mg 04/20/17 10:00 04/20/17 12:11 Tenormin - PO 25 mg BID NESSA Administration Heparin Sodium (Porcine) 5,000 unit 04/20/17 02:55 04/20/17 03:17 Heparin - IVPUSH 5,000 unit PRN PRN Administration Heparin Hydromorphone HCl 1 mg 04/20/17 09:06 04/20/17 10:02 Dilaudid Injection - IVPUSH 1 mg Q6H PRN Administration PAIN Heparin Sodium (Porcine) 25, 500 mls @ 20 mls/hr 04/20/17 03:00 04/20/17 10: 12 000 unit/ Sodium Chloride IV 1,100 unit/hr TITR NESSA 22 mls/hr Protocol Titration 1,000 UNIT/HR Sodium Chloride 1,000 mls @ 100 mls/hr 04/20/17 03:00 04/20/17 03:52 Normal Saline - IV 100 mls/hr ASDIR NESSA Administration Pantoprazole Sodium 40 mg 04/20/17 10:00 04/20/17 12:11 Protonix - PO 40 mg DAILY NESSA Administration Senna 1 tab 04/20/17 22:00 Senna - PO HS [facility] Tamsulosin HCl 0.4 mg 04/20/17 08:30 04/20/17 08:40 Flomax - PO 0.4 mg DAILY@0830 NESSA Administration ASSESSMENT/PLAN: Neuro: - A&Ox3 - Baseline CV: HTN - Atenolol 25mg BID Pulm: - None Renal: NILAM - BUN 139 from 156 - Cr 3.9 from 5.2 - Continue hydration: NS @100mL/hour - NILAM likely secondary to urinary bladder distention - Will continue hydration and monitor BUN/Cr : - Rodriguez inserted with 2 L output - Likely the cause of abdominal pain and NILAM GI: - Constipated - Continue Senna or switch to Miralax if necessary ID: - None Hem/Onc: DVT - Heparin bolus and PRN Endocrine: - None MSK: - 3+ pitting edema, monitor after NILAM cleared PPX: - Heparin FEN (Fluids, electrolytes, nutrition): - NS at 100mL/hour - Renal diet Dispo: - Transfer to med/surg floor for renal workup
[2017-04-20] MEDS: SODIUM CHLORIDE 1,000 ML IV SCH (17:41)
[2017-04-20] MEDS: HEPARIN - 25,000 UNIT in SODIUM CHLORIDE 495 ML IV SCH (20:17)
[2017-04-20] MEDS: SENNOSIDES 8.6MG TABLET (FP) PO SCH (21:28)
[2017-04-20] MEDS: ATENOLOL 25 MG TABLET (FP) PO SCH (21:28)
[2017-04-20] MEDS ORDERED: BISACODYL 5 MG TABLET.DR (FP) PO ONE (22:30)
[2017-04-20] MEDS: POLYETHYLENE GLYCOL 3350 119 GM BTL PO SCH (22:45)
[2017-04-21] MEDS: SODIUM CHLORIDE 1,000 ML IV SCH ×2 (00:57→16:01)
[2017-04-21] MEDS: HEPARIN - 25,000 UNIT in SODIUM CHLORIDE 495 ML IV SCH ×3 (00:58→22:03)
[2017-04-21 06:10] LABS: SERUM IRON 26 ug/dL (38-169); TOTAL IRON BINDING CAPACITY 200 ug/dL (250-450); UIBC 174 ug/dL (111-343)
[2017-04-21 07:23] LABS: ALBUMIN 2.1 g/dl (3.4-5.0); ANION GAP 8 (8-16); BILIRUBIN,TOTAL 0.9 mg/dL (0.2-1.0); CALCIUM 7.3 mg/dL (8.5-10.1); CO2 21 mmol/L (21-32); CREATININE 1.1 mg/dL (0.7-1.3); GLUCOSE,RANDOM 186 mg/dL (74-106); MAGNESIUM 2.8 mg/dL (1.8-2.4); PHOSPHOROUS 2.3 mg/dL (2.5-4.9); SGOT/AST 31 U/L (15-37); SGPT/ALT 12 U/L (12-78); TOT PROT 4.8 g/dl (6.4-8.2)
[2017-04-21 08:11] LABS: MCH 29.4 pg (25.7-33.7); MCHC 33.4 g/dl (32.0-35.9); MEAN CELL VOLUME 88.2 fl (80-96); PLATELET COUNT 198 K/MM3 (134-434); RDW 14.9 % (11.9-15.9); WHITE BLOOD COUNT 10.2 K/mm3 (4.0-10.0)
[2017-04-21 08:20] LABS: ALK PHOS 63 U/L (45-117)
[2017-04-21 09:11] LABS: PLATELET ESTIMATE ADEQUATE; REACTIVE LYMPHOCYTES 1 % (0-80)
[2017-04-21 09:22] LABS: TOTAL CELLS COUNTED 100
[2017-04-21] MEDS: POLYETHYLENE GLYCOL 3350 119 GM BTL PO SCH ×2 (10:23→21:04)
[2017-04-21] MEDS: ATENOLOL 25 MG TABLET (FP) PO SCH ×2 (10:23→21:06)
[2017-04-21] MEDS: TAMSULOSIN HCL 0.4 MG CAP.ER.24H (FP) PO SCH (10:23)
[2017-04-21] MEDS: PANTOPRAZOLE 40 MG TABLET (FP) PO SCH (10:23)
--- NOTE | 2017-04-21 11:13 | PN ---
Progress Note (short form) - Note Progress Note: Renal follow up for NILAM Pt seen and examined at the bedside awake and alert reports frequent stools making urine via rodriguez no sob, chest pain, N/V Vital Signs Temperature 99.0 F 04/21/17 05:59 Pulse Rate 64 04/21/17 05:59 Respiratory Rate 20 04/21/17 05:59 Blood Pressure 120/60 04/21/17 05:59 O2 Sat by Pulse Oximetry (%) 98 04/20/17 21:00 Intake & Output 04/18/17 04/19/17 04/20/17 04/21/17 23:59 23:59 23:59 23:59 Intake Total 624 150 Output Total 2500 1000 Balance -1876 -850 Weight 124.738 kg 109.316 kg 67.767 kg NAD awake and alert RRR CTA soft NT/ND CBC, BMP 04/21/17 06:10 04/21/17 06:10 Current Medications Atenolol (Tenormin -) 25 mg PO BID [facility] Last Admin: 04/21/17 10:23 Dose: 25 mg Heparin Sodium (Porcine) (Heparin -) 5,000 unit IVPUSH PRN PRN PRN Reason: Heparin Heparin Sodium (Porcine) (Heparin -) 1,000 unit IVPUSH PRN PRN PRN Reason: Heparin Hydromorphone HCl (Dilaudid Injection -) 1 mg IVPUSH Q6H PRN PRN Reason: PAIN Heparin Sodium (Porcine) 25, (000 unit/ Sodium Chloride) 500 mls @ 20 mls/hr IV TITR NESSA; 1,000 UNIT/HR PRN Reason: Protocol Last Admin: 04/21/17 00:58 Dose: 1,200 unit/hr, 24 mls/hr Sodium Chloride (Normal Saline -) 1,000 mls @ 100 mls/hr IV ASDIR NESSA Last Admin: 04/21/17 00:57 Dose: 100 mls/hr Pantoprazole Sodium (Protonix -) 40 mg PO DAILY [facility] Last Admin: 04/21/17 10:23 Dose: 40 mg Polyethylene Glycol (Miralax (For Daily Use) -) 17 gm PO BID NESSA Last Admin: 04/21/17 10:23 Dose: 17 grams Senna (Senna -) 1 tab PO HS [facility] Last Admin: 04/20/17 21:28 Dose: 1 tab Tamsulosin HCl (Flomax -) 0.4 mg PO DAILY@0830 [facility] Last Admin: 04/21/17 10:23 Dose: 0.4 mg 76 year old gentleman with PMhx of DVT on Eliquis, Hypertenion, HLD, NIIDM, BPH s/p recent knee replacement who presented with LE swelling and pain, urinary retention and found to have b/l DVT and Acute Renal Failure. Pt was noted to have urinary retention and constipation. #Acute Renal Failure Likely secondary to bladder outlet obstruction secondary to BPH +/- Immobility/ Opioids Renal function improving with rodriguez and IVF decrease IVF rate to 83cc per hour maintain rodriguez add proscar, continue flomax f/u SPEP trend BUN/Cr urology eval no renal vein thrombosis seen on doppler #Extensive LE DVT on heparin gtt ? failure of Eliquis, ? need to traveler changer Heme following Consider Vascular Sx Eval for IVC filter( (? if pt already has a filter) #Hypertension BP is low/marginal consider hold atenolol/or hold parameters Thank you Will follow Ayden Garber DO Problem List - Problems (1) Acute renal failure Code(s): N17.9 - ACUTE KIDNEY FAILURE, UNSPECIFIED Qualifiers: Acute renal failure type: unspecified Qualified Code(s): N17.9 - Acute kidney failure, unspecified (2) Anemia Code(s): D64.9 - ANEMIA, UNSPECIFIED Qualifiers: Anemia type: other cause Other causes of anemia: other cause, not classified Qualified Code(s): D64.89 - Other specified anemias (3) BPH (benign prostatic hyperplasia) Code(s): N40.0 - BENIGN PROSTATIC HYPERPLASIA WITHOUT LOWER URINRY TRACT SYMP (4) DVT, bilateral lower limbs Code(s): I82.403 - ACUTE EMBOLISM AND THOMBOS UNSP DEEP VEINS OF LOW EXTRM, BI Qualifiers: Affected thrombotic vein of extremity: unspecified vein of extremity Chronicity: acute Qualified Code(s): I82.403 - Acute embolism and thrombosis of unspecified deep veins of lower extremity, bilateral (5) HTN (hypertension) Code(s): I10 - ESSENTIAL (PRIMARY) HYPERTENSION (6) S/P TKR (total knee replacement) Code(s): Z96.659 - PRESENCE OF UNSPECIFIED ARTIFICIAL KNEE JOINT Qualifiers: Laterality: right Qualified Code(s): Z96.651 - Presence of right artificial knee joint
--- NOTE | 2017-04-21 11:23 | PN ---
Progress Note, Physician Chief Complaint: B/L LE DVT History of Present Illness: Patient is awake and alert, denies pain, not in respiratory distress. Patient complains of not passing his stool completely. Had a bowel movement this AM. - Current Medication List Current Medications: Active Medications Atenolol (Tenormin -) 25 mg PO BID [facility] Last Admin: 04/21/17 10:23 Dose: 25 mg Finasteride (Proscar -) 5 mg PO DAILY [facility] Heparin Sodium (Porcine) (Heparin -) 5,000 unit IVPUSH PRN PRN PRN Reason: Heparin Heparin Sodium (Porcine) (Heparin -) 1,000 unit IVPUSH PRN PRN PRN Reason: Heparin Hydromorphone HCl (Dilaudid Injection -) 1 mg IVPUSH Q6H PRN PRN Reason: PAIN Heparin Sodium (Porcine) 25, (000 unit/ Sodium Chloride) 500 mls @ 20 mls/hr IV TITR NESSA; 1,000 UNIT/HR PRN Reason: Protocol Last Admin: 04/21/17 00:58 Dose: 1,200 unit/hr, 24 mls/hr Sodium Chloride (Normal Saline -) 1,000 mls @ 83 mls/hr IV ASDIR [facility] Pantoprazole Sodium (Protonix -) 40 mg PO DAILY [facility] Last Admin: 04/21/17 10:23 Dose: 40 mg Polyethylene Glycol (Miralax (For Daily Use) -) 17 gm PO BID [facility] Last Admin: 04/21/17 10:23 Dose: 17 grams Potassium Phos/Sodium Phos (Phos-Nak Packet -) 1 packet PO TID [facility] Stop: 04/21/17 22:01 Senna (Senna -) 1 tab PO HS [facility] Last Admin: 04/20/17 21:28 Dose: 1 tab Tamsulosin HCl (Flomax -) 0.4 mg PO DAILY@0830 [facility] Last Admin: 04/21/17 10:23 Dose: 0.4 mg - Objective Vital Signs: Vital Signs Temperature 99.0 F 04/21/17 05:59 Pulse Rate 64 04/21/17 05:59 Respiratory Rate 20 04/21/17 05:59 Blood Pressure 120/60 04/21/17 05:59 O2 Sat by Pulse Oximetry (%) 98 04/20/17 21:00 Constitutional: Yes: No Distress, Calm Eyes: Yes: Conjunctiva Clear HENT: Yes: Normocephalic Neck: Yes: Supple, Trachea Midline Cardiovascular: Yes: Regular Rate and Rhythm Respiratory: Yes: Regular, CTA Bilaterally Gastrointestinal: Yes: Normal Bowel Sounds, Soft Peripheral Pulses WNL: Yes Labs: CBC, BMP 04/21/17 06:10 04/21/17 06:10 INR, PTT INR 1.39 (0.82-1.09) H 04/19/17 21:54 Problem List - Problems (1) Acute renal failure Code(s): N17.9 - ACUTE KIDNEY FAILURE, UNSPECIFIED Qualifiers: Acute renal failure type: unspecified Qualified Code(s): N17.9 - Acute kidney failure, unspecified (2) Anemia Code(s): D64.9 - ANEMIA, UNSPECIFIED Qualifiers: Anemia type: other cause Other causes of anemia: other cause, not classified Qualified Code(s): D64.89 - Other specified anemias (3) BPH (benign prostatic hyperplasia) Code(s): N40.0 - BENIGN PROSTATIC HYPERPLASIA WITHOUT LOWER URINRY TRACT SYMP (4) DVT, bilateral lower limbs Code(s): I82.403 - ACUTE EMBOLISM AND THOMBOS UNSP DEEP VEINS OF LOW EXTRM, BI Qualifiers: Affected thrombotic vein of extremity: unspecified vein of extremity Chronicity: acute Qualified Code(s): I82.403 - Acute embolism and thrombosis of unspecified deep veins of lower extremity, bilateral (5) HTN (hypertension) Code(s): I10 - ESSENTIAL (PRIMARY) HYPERTENSION (6) S/P TKR (total knee replacement) Code(s): Z96.659 - PRESENCE OF UNSPECIFIED ARTIFICIAL KNEE JOINT Qualifiers: Laterality: right Qualified Code(s): Z96.651 - Presence of right artificial knee joint Assessment/Plan (1) Acute renal failure Assessment/Plan: -Nephro on board -Continue IVF -Renal MARY: no evidence of renal vein thrombosis -Improving: BUN 04/2014=404 04/21=58 CREA 04/20=2.7 04/21=1.1 -Continue to monitor kidney function test (2) Anemia Assessment/Plan: -Hematology on board -H/H 04/20=8.1/25.1 04/21=7.8/23.5 -Stool OB negative -Monitor labs (3) BPH (benign prostatic hyperplasia) Assessment/Plan: -On Flomax and Proscar (4) DVT, bilateral lower limbs Assessment/Plan: -Continue haprin drip -Monitor PTT -Was on Eliquis 2.5; health plan manager options will need to be decided (5) S/P TKR (total knee replacement) Assessment/Plan: -Ortho follow up -Patient was started on Miralax as patient complaining on not able to pass stool completely. -Had a BM this morning.
--- NOTE | 2017-04-21 11:52 | PN ---
Progress Note (short form) - Note Progress Note: Patient seen and examined Spoke with patient and significant other-- off Eliquis 9 or 10 days pre surgical procedure. Suspect that patient is not an eliquis failure, but rather that he has been off pre- surgery and then was immobile and dehydrated post surgery. Will therefore consider re-resumption of eliquis Last Vital Signs Temp Pulse Resp BP Pulse Ox 99.0 F 64 20 120/60 98 04/21/17 05:59 04/21/17 05:59 04/21/17 05:59 04/21/17 05:59 04/20/17 21:00 HEENT: QUIRINO, EOM Intact Oropharynx: No thrush, No mucositis Cor: RSR, No murmurs, No gallops Lungs: diminished breath sounds bilaterally Abd: Soft, Normal bowel sounds, No organomegaly Exts/p right knee surgery wit dressing ; warmth and erythema medially to dressing site Skin: No rashes, Integument intact CBC, BMP 04/21/17 06:10 04/21/17 06:10 Current Medications Generic Name Dose Route Start Last Admin Trade Name Freq PRN Reason Stop Dose Admin Atenolol 25 mg 04/20/17 22:00 04/21/17 10:23 Tenormin - PO 25 mg BID NESSA Administration Finasteride 5 mg 04/21/17 11:15 Proscar - PO DAILY NESSA Heparin Sodium (Porcine) 5,000 unit 04/20/17 16:30 Heparin - IVPUSH PRN PRN Heparin Heparin Sodium (Porcine) 1,000 unit 04/20/17 16:38 Heparin - IVPUSH PRN PRN Heparin Hydromorphone HCl 1 mg 04/20/17 16:30 Dilaudid Injection - IVPUSH Q6H PRN PAIN Heparin Sodium (Porcine) 25, 500 mls @ 20 mls/hr 04/20/17 16:30 04/21/17 00: 58 000 unit/ Sodium Chloride IV 1,200 unit/hr TITR NESSA 24 mls/hr Protocol Administration 1,000 UNIT/HR Sodium Chloride 1,000 mls @ 83 mls/hr 04/21/17 11:12 Normal Saline - IV ASDIR NESSA Pantoprazole Sodium 40 mg 04/21/17 10:00 04/21/17 10:23 Protonix - PO 40 mg DAILY NESSA Administration Polyethylene Glycol 17 gm 04/20/17 22:30 04/21/17 10:23 Miralax (For Daily Use) - PO 17 grams BID NESSA Administration Potassium Phos/Sodium Phos 1 packet 04/21/17 11:15 Phos-Nak Packet - PO 04/21/17 22:01 TID NESSA Senna 1 tab 04/20/17 22:00 04/20/17 21:28 Senna - PO 1 tab HS NESSA Administration Tamsulosin HCl 0.4 mg 04/21/17 08:30 04/21/17 10:23 Flomax - PO 0.4 mg DAILY@0830 NESSA Administration Impression: History of prior DVT's on Eliquis. Off eliquis 9 or 10 days pre surgery. Post surgery immobilized and dehydrated with elevated BUN/creatinine on admission. As aforementioned suspect patient not an eliquis failure, but rather was off pre surgery and immobilization post surgery. Would consider re-institution of eliquis. Would bridge heparin x 72 hours, discontinue and immediately begin loading dose of eliquis 10 mg p.o. BID x 7 days. Then maintenance 5 mg p.o. BID. Would begin FE++ and if no improvement in Hb/Hct, may need transfusion of packed cells. Would have ortho follow up in view of erythema and warmth medial aspect right knee.
[2017-04-21] MEDS: NAPH,MB-DB/K PH,MBDB POWDER PACKET PO SCH ×3 (12:25→21:05)
[2017-04-21] MEDS: FINASTERIDE 5 MG TABLET (FP) PO SCH (13:05)
[2017-04-21] MEDS ORDERED: PT OWN MED DRAWER 7, Y5N ONE (20:52)
[2017-04-21] MEDS: SENNOSIDES 8.6MG TABLET (FP) PO SCH (21:06)
[2017-04-21] MEDS: HYDROmorphone HCL CARPU-JECT 2 MG/1 ML DISP.SYRIN IVPUSH PRN (23:16)
[2017-04-22] MEDS: SODIUM CHLORIDE 1,000 ML IV SCH (05:29)
[2017-04-22 08:03] LABS: BASOPHIL 0.6 % (0-2.0); EOSINOPHIL 1.9 % (0-4.5); MCH 29.5 pg (25.7-33.7); MCHC 32.9 g/dl (32.0-35.9); MEAN CELL VOLUME 89.5 fl (80-96); MEAN PLT VOLUME 10.8 fl (7.5-11.1); NEUTROPHILS 80.6 % (42.8-82.8); PLATELET COUNT 245 K/MM3 (134-434); RDW 15.3 % (11.9-15.9); WHITE BLOOD COUNT 10.8 K/mm3 (4.0-10.0)
[2017-04-22 08:32] LABS: ALBUMIN 1.9 g/dl (3.4-5.0); ANION GAP 8 (8-16); CO2 21 mmol/L (21-32); GLUCOSE,RANDOM 149 mg/dL (74-106); MAGNESIUM 2.8 mg/dL (1.8-2.4)
[2017-04-22 08:37] LABS: ALK PHOS 60 U/L (45-117); BILIRUBIN,TOTAL 1.4 mg/dL (0.2-1.0); CREATININE 0.8 mg/dL (0.7-1.3); SGOT/AST 21 U/L (15-37); SGPT/ALT 14 U/L (12-78); TOT PROT 4.7 g/dl (6.4-8.2)
[2017-04-22] MEDS: TAMSULOSIN HCL 0.4 MG CAP.ER.24H (FP) PO SCH (08:52)
[2017-04-22] MEDS: POLYETHYLENE GLYCOL 3350 119 GM BTL PO SCH ×2 (11:01→21:15)
[2017-04-22] MEDS: FINASTERIDE 5 MG TABLET (FP) PO SCH (11:01)
[2017-04-22] MEDS: ATENOLOL 25 MG TABLET (FP) PO SCH ×2 (11:02→21:15)
[2017-04-22] MEDS: PANTOPRAZOLE 40 MG TABLET (FP) PO SCH (11:02)
--- NOTE | 2017-04-22 11:22 | PN ---
Progress Note (short form) - Note Progress Note: AVSS COMFORTABLE BANDAGES CLEAN AND DRY CALF SOFT ANF NT NVI IMP:DOING WELL BUT POOR ROM PLAN: OOB,PT,WBAT
[2017-04-22] MEDS ORDERED: APIXABAN 5 MG TABLET PO SCH (11:30)
--- NOTE | 2017-04-22 11:31 | PN ---
Progress Note, Physician Chief Complaint: in bed wants to ambulate on iv heparin drip - Current Medication List Current Medications: Active Medications Atenolol (Tenormin -) 25 mg PO BID [facility] Last Admin: 04/22/17 11:02 Dose: 25 mg Finasteride (Proscar -) 5 mg PO DAILY [facility] Last Admin: 04/22/17 11:01 Dose: 5 mg Heparin Sodium (Porcine) (Heparin -) 5,000 unit IVPUSH PRN PRN PRN Reason: Heparin Heparin Sodium (Porcine) (Heparin -) 1,000 unit IVPUSH PRN PRN PRN Reason: Heparin Hydromorphone HCl (Dilaudid Injection -) 1 mg IVPUSH Q6H PRN PRN Reason: PAIN Last Admin: 04/21/17 23:16 Dose: 1 mg Heparin Sodium (Porcine) 25, (000 unit/ Sodium Chloride) 500 mls @ 20 mls/hr IV TITR NESSA; 1,000 UNIT/HR PRN Reason: Protocol Last Admin: 04/21/17 22:03 Dose: 1,200 unit/hr, 24 mls/hr Sodium Chloride (Normal Saline -) 1,000 mls @ 83 mls/hr IV ASDIR [facility] Last Admin: 04/22/17 05:29 Dose: 83 mls/hr Pantoprazole Sodium (Protonix -) 40 mg PO DAILY [facility] Last Admin: 04/22/17 11:02 Dose: 40 mg Polyethylene Glycol (Miralax (For Daily Use) -) 17 gm PO BID [facility] Last Admin: 04/22/17 11:01 Dose: 17 grams Senna (Senna -) 1 tab PO HS [facility] Last Admin: 04/21/17 21:06 Dose: 1 tab Tamsulosin HCl (Flomax -) 0.4 mg PO DAILY@0830 [facility] Last Admin: 04/22/17 08:52 Dose: 0.4 mg - Objective Vital Signs: Vital Signs Temperature 98.2 F 04/22/17 06:00 Pulse Rate 64 04/22/17 06:00 Respiratory Rate 20 04/22/17 06:00 Blood Pressure 122/63 04/22/17 06:00 O2 Sat by Pulse Oximetry (%) 92 L 04/21/17 21:00 Constitutional: Yes: Calm Neck: Yes: Trachea Midline Cardiovascular: Yes: Regular Rate and Rhythm, S1, S2 Respiratory: Yes: CTA Bilaterally Gastrointestinal: Yes: Normal Bowel Sounds, Soft Edema: Yes Wound/Incision: Yes: Other (right knee aquacel dressing) Neurological: Yes: Alert, Oriented Labs: CBC, BMP 04/22/17 07:27 04/22/17 07:23 INR, PTT INR 1.39 (0.82-1.09) H 04/19/17 21:54 Problem List - Problems (1) Anemia Assessment/Plan: prbc- the h/h trending down start po iron supplements- iron panel noted heme FU stool occult blood negative Code(s): D64.9 - ANEMIA, UNSPECIFIED Qualifiers: Anemia type: other cause Other causes of anemia: other cause, not classified Qualified Code(s): D64.89 - Other specified anemias (2) DVT, bilateral lower limbs Assessment/Plan: heparin drip till tmw then stop and give Eliquis 10mg po bid for 7 days then 5mg po bid Code(s): I82.403 - ACUTE EMBOLISM AND THOMBOS UNSP DEEP VEINS OF LOW EXTRM, BI Qualifiers: Affected thrombotic vein of extremity: unspecified vein of extremity Chronicity: acute Qualified Code(s): I82.403 - Acute embolism and thrombosis of unspecified deep veins of lower extremity, bilateral (3) HTN (hypertension) Assessment/Plan: tenormin Code(s): I10 - ESSENTIAL (PRIMARY) HYPERTENSION (4) S/P TKR (total knee replacement) Assessment/Plan: ortho follow up appreicated PT eval Code(s): Z96.659 - PRESENCE OF UNSPECIFIED ARTIFICIAL KNEE JOINT Qualifiers: Laterality: right Qualified Code(s): Z96.651 - Presence of right artificial knee joint (5) BPH (benign prostatic hyperplasia) Assessment/Plan: flomax Code(s): N40.0 - BENIGN PROSTATIC HYPERPLASIA WITHOUT LOWER URINRY TRACT SYMP (6) Acute renal failure Assessment/Plan: renal function improving darwin stop iv fluids hyperkalemia: resolved Code(s): N17.9 - ACUTE KIDNEY FAILURE, UNSPECIFIED Qualifiers: Acute renal failure type: unspecified Qualified Code(s): N17.9 - Acute kidney failure, unspecified
--- NOTE | 2017-04-22 15:54 | PN ---
Progress Note (short form) - Note Progress Note: Renal follow up for NILAM Pt seen and examined at the bedside awake and alert no complaints Vital Signs Temperature 98.6 F 04/22/17 15:26 Pulse Rate 67 04/22/17 15:26 Respiratory Rate 20 04/22/17 15:26 Blood Pressure 107/44 04/22/17 15:26 O2 Sat by Pulse Oximetry (%) 92 L 04/21/17 21:00 Intake & Output 04/19/17 04/20/17 04/21/17 04/22/17 23:59 23:59 23:59 23:59 Intake Total 058 323 8039 Output Total 2500 2300 2200 Balance -1876 -1730 74 Weight 124.738 kg 109.316 kg 67.767 kg NAD awake and alert RRR CTA soft NT/ND CBC, BMP 04/22/17 07:27 04/22/17 07:23 Current Medications Atenolol (Tenormin -) 25 mg PO BID [facility] Last Admin: 04/22/17 11:02 Dose: 25 mg Ferrous Sulfate (Feosol -) 325 mg PO BID [facility] Finasteride (Proscar -) 5 mg PO DAILY [facility] Last Admin: 04/22/17 11:01 Dose: 5 mg Heparin Sodium (Porcine) (Heparin -) 5,000 unit IVPUSH PRN PRN PRN Reason: Heparin Heparin Sodium (Porcine) (Heparin -) 1,000 unit IVPUSH PRN PRN PRN Reason: Heparin Hydromorphone HCl (Dilaudid Injection -) 1 mg IVPUSH Q6H PRN PRN Reason: PAIN Last Admin: 04/21/17 23:16 Dose: 1 mg Heparin Sodium (Porcine) 25, (000 unit/ Sodium Chloride) 500 mls @ 20 mls/hr IV TITR NESSA; 1,000 UNIT/HR PRN Reason: Protocol Last Admin: 04/21/17 22:03 Dose: 1,200 unit/hr, 24 mls/hr Pantoprazole Sodium (Protonix -) 40 mg PO DAILY [facility] Last Admin: 04/22/17 11:02 Dose: 40 mg Polyethylene Glycol (Miralax (For Daily Use) -) 17 gm PO BID [facility] Last Admin: 04/22/17 11:01 Dose: 17 grams Potassium Phos/Sodium Phos (Phos-Nak Packet -) 1 packet PO TID [facility] Stop: 04/23/17 06:01 Senna (Senna -) 1 tab PO HS [facility] Last Admin: 04/21/17 21:06 Dose: 1 tab Tamsulosin HCl (Flomax -) 0.4 mg PO DAILY@0830 [facility] Last Admin: 04/22/17 08:52 Dose: 0.4 mg 76 year old gentleman with PMhx of DVT on Eliquis, Hypertenion, HLD, NIIDM, BPH s/p recent knee replacement who presented with LE swelling and pain, urinary retention and found to have b/l DVT and Acute Renal Failure. Pt was noted to have urinary retention and constipation. #Acute Renal Failure Likely secondary to bladder outlet obstruction secondary to BPH +/- Immobility/ Opioids Renal function now improved to baseline good urine output pt is not polyuric, no evidence of volume depletion trend BUN/cr, avoid nsaids #Extensive LE DVT on heparin gtt management as per Heme #Hypertension BP is low/marginal consider hold atenolol/or hold parameters Thank you Will follow Ayden Garber DO Problem List - Problems (1) Acute renal failure Code(s): N17.9 - ACUTE KIDNEY FAILURE, UNSPECIFIED Qualifiers: Acute renal failure type: unspecified Qualified Code(s): N17.9 - Acute kidney failure, unspecified (2) Anemia Code(s): D64.9 - ANEMIA, UNSPECIFIED Qualifiers: Anemia type: other cause Other causes of anemia: other cause, not classified Qualified Code(s): D64.89 - Other specified anemias (3) BPH (benign prostatic hyperplasia) Code(s): N40.0 - BENIGN PROSTATIC HYPERPLASIA WITHOUT LOWER URINRY TRACT SYMP (4) DVT, bilateral lower limbs Code(s): I82.403 - ACUTE EMBOLISM AND THOMBOS UNSP DEEP VEINS OF LOW EXTRM, BI Qualifiers: Affected thrombotic vein of extremity: unspecified vein of extremity Chronicity: acute Qualified Code(s): I82.403 - Acute embolism and thrombosis of unspecified deep veins of lower extremity, bilateral (5) HTN (hypertension) Code(s): I10 - ESSENTIAL (PRIMARY) HYPERTENSION (6) S/P TKR (total knee replacement) Code(s): Z96.659 - PRESENCE OF UNSPECIFIED ARTIFICIAL KNEE JOINT Qualifiers: Laterality: right Qualified Code(s): Z96.651 - Presence of right artificial knee joint
[2017-04-22] MEDS: NAPH,MB-DB/K PH,MBDB POWDER PACKET PO SCH ×2 (16:50→21:15)
[2017-04-22] MEDS: HEPARIN - 25,000 UNIT in SODIUM CHLORIDE 495 ML IV SCH ×2 (17:38→21:20)
--- NOTE | 2017-04-22 19:23 | PN ---
Progress Note (short form) - Note Progress Note: PAtient seen and examined Feels OK Getting PRBCs Last Vital Signs Temp Pulse Resp BP Pulse Ox 99.4 F 64 20 121/55 94 L 04/22/17 18:00 04/22/17 18:00 04/22/17 18:00 04/22/17 18:00 04/22/17 09:00 Cor: RSR, No murmurs, No gallops Lungs: Clear to P&A Abd: Soft, Normal bowel sounds, No organomegaly Ext:No significant edema Skin: No rashes, Integument intact Abnormal Lab Results 04/19/17 04/22/17 04/22/17 21:54 07:23 07:23 WBC RBC Hgb Hct PTT (Actin FS) 53.8 H Chloride 114 H BUN 26 H D Random Glucose 149 H Calcium 7.0 L Phosphorus 2.0 L Magnesium 2.8 H Total Bilirubin 1.4 H D Total Protein 4.7 L Albumin 1.9 L Crossmatch See Detail 04/22/17 07:23 WBC 10.8 H RBC 2.62 L Hgb 7.7 L Hct 23.4 L PTT (Actin FS) Chloride BUN Random Glucose Calcium Phosphorus Magnesium Total Bilirubin Total Protein Albumin Crossmatch Active Medications Generic Name Dose Route Start Last Admin Trade Name Freq PRN Reason Stop Dose Admin Atenolol 25 mg 04/20/17 22:00 04/22/17 11:02 Tenormin - PO 25 mg BID [facility] Administration Ferrous Sulfate 325 mg 04/22/17 22:00 Feosol - PO BID NESSA Finasteride 5 mg 04/21/17 11:15 04/22/17 11:01 Proscar - PO 5 mg DAILY NESSA Administration Heparin Sodium (Porcine) 5,000 unit 04/20/17 16:30 Heparin - IVPUSH PRN PRN Heparin Heparin Sodium (Porcine) 1,000 unit 04/20/17 16:38 Heparin - IVPUSH PRN PRN Heparin Hydromorphone HCl 1 mg 04/20/17 16:30 04/21/17 23:16 Dilaudid Injection - IVPUSH 1 mg Q6H PRN Administration PAIN Heparin Sodium (Porcine) 25, 500 mls @ 20 mls/hr 04/20/17 16:30 04/22/17 17: 38 000 unit/ Sodium Chloride IV Not Given TITR NESSA Protocol 1,000 UNIT/HR Pantoprazole Sodium 40 mg 04/21/17 10:00 04/22/17 11:02 Protonix - PO 40 mg DAILY NESSA Administration Polyethylene Glycol 17 gm 04/20/17 22:30 04/22/17 11:01 Miralax (For Daily Use) - PO 17 grams BID NESSA Administration Potassium Phos/Sodium Phos 1 packet 04/22/17 16:00 04/22/17 16:50 Phos-Nak Packet - PO 04/23/17 06:01 1 packet TID NESSA Administration Senna 1 tab 04/20/17 22:00 04/21/17 21:06 Senna - PO 1 tab HS NESSA Administration Tamsulosin HCl 0.4 mg 04/21/17 08:30 04/22/17 08:52 Flomax - PO 0.4 mg DAILY@0830 NESSA Administration A/P 76 y/o patient with History of prior DVT's on Eliquis. Off eliquis 9 or 10 days pre surgery. Post surgery immobilized and dehydrated with elevated BUN/creatinine on admission. As aforementioned suspect patient not an eliquis failure, but rather was off pre surgery and immobilization post surgery. Would consider re-institution of eliquis at discharge ortho f/u noted Getting PRBCs for Hgb 7.7 on ol
[2017-04-22] MEDS: FERROUS SO4 325 MG TABLET (FP) PO SCH (21:15)
[2017-04-22] MEDS: SENNOSIDES 8.6MG TABLET (FP) PO SCH (21:15)
[2017-04-22] MEDS: HYDROmorphone HCL CARPU-JECT 2 MG/1 ML DISP.SYRIN IVPUSH PRN (21:16)
[2017-04-23 00:11] LABS: A/G RATIO 0.8 (0.7-1.7); ALBUMIN 2.1 g/dL (2.9-4.4); ALPHA-1-GLOBULIN 0.4 g/dL (0.0-0.4); BETA GLOBULIN 0.6 g/dL (0.7-1.3); GAMMA GLOBULIN 0.7 g/dL (0.4-1.8); GLOBULIN, TOTAL 2.8 g/dL (2.2-3.9); M-SPIKE Not Observed g/dL (Not Observed); TOTAL PROTEIN 4.9 g/dL (6.0-8.5)
[2017-04-23] MEDS: HYDROmorphone HCL CARPU-JECT 2 MG/1 ML DISP.SYRIN IVPUSH PRN ×2 (03:35→09:41)
[2017-04-23] MEDS: NAPH,MB-DB/K PH,MBDB POWDER PACKET PO SCH (06:11)
[2017-04-23 07:19] LABS: BASOPHIL 0.6 % (0-2.0); MCH 27.9 pg (25.7-33.7); MCHC 32.8 g/dl (32.0-35.9); MEAN CELL VOLUME 84.8 fl (80-96); MEAN PLT VOLUME 10.1 fl (7.5-11.1); NEUTROPHILS 84.6 % (42.8-82.8); PLATELET COUNT 270 K/MM3 (134-434); RDW 19.5 % (11.9-15.9); WHITE BLOOD COUNT 12.8 K/mm3 (4.0-10.0)
[2017-04-23 07:40] LABS: ANION GAP 7 (8-16); CO2 21 mmol/L (21-32); CREATININE 0.7 mg/dL (0.7-1.3); GLUCOSE,RANDOM 175 mg/dL (74-106); MAGNESIUM 2.4 mg/dL (1.8-2.4)
[2017-04-23] MEDS: FERROUS SO4 325 MG TABLET (FP) PO SCH ×2 (09:00→21:35)
[2017-04-23] MEDS: PANTOPRAZOLE 40 MG TABLET (FP) PO SCH (09:00)
[2017-04-23] MEDS: TAMSULOSIN HCL 0.4 MG CAP.ER.24H (FP) PO SCH (09:00)
[2017-04-23] MEDS: FINASTERIDE 5 MG TABLET (FP) PO SCH (09:01)
[2017-04-23] MEDS: ATENOLOL 25 MG TABLET (FP) PO SCH ×2 (09:01→21:35)
[2017-04-23] MEDS: POLYETHYLENE GLYCOL 3350 119 GM BTL PO SCH ×2 (09:01→21:36)
[2017-04-23] MEDS: SODIUM CHLORIDE 1,000 ML IV SCH (09:04)
[2017-04-23] MEDS ORDERED: APIXABAN 5 MG TABLET PO SCH ×2 (10:00→22:00)
--- NOTE | 2017-04-23 12:29 | PN ---
Progress Note, Physician - Current Medication List Current Medications: Active Medications Apixaban (Eliquis -) 5 mg PO BID [facility] Atenolol (Tenormin -) 25 mg PO BID [facility] Last Admin: 04/23/17 09:01 Dose: 25 mg Ferrous Sulfate (Feosol -) 325 mg PO BID [facility] Last Admin: 04/23/17 09:00 Dose: 325 mg Finasteride (Proscar -) 5 mg PO DAILY [facility] Last Admin: 04/23/17 09:01 Dose: 5 mg Pantoprazole Sodium (Protonix -) 40 mg PO DAILY [facility] Last Admin: 04/23/17 09:00 Dose: 40 mg Polyethylene Glycol (Miralax (For Daily Use) -) 17 gm PO BID [facility] Last Admin: 04/23/17 09:01 Dose: 17 grams Senna (Senna -) 1 tab PO HS [facility] Last Admin: 04/22/17 21:15 Dose: 1 tab Tamsulosin HCl (Flomax -) 0.8 mg PO DAILY@0830 [facility] - Objective Vital Signs: Vital Signs Temperature 98.7 F 04/23/17 05:45 Pulse Rate 64 04/23/17 09:00 Respiratory Rate 18 04/23/17 09:00 Blood Pressure 128/64 04/23/17 09:00 O2 Sat by Pulse Oximetry (%) 96 04/23/17 09:00 Labs: CBC, BMP 04/23/17 06:45 04/23/17 06:45 INR, PTT INR 1.39 (0.82-1.09) H 04/19/17 21:54 Problem List - Problems (1) Acute renal failure Code(s): N17.9 - ACUTE KIDNEY FAILURE, UNSPECIFIED Qualifiers: Acute renal failure type: unspecified Qualified Code(s): N17.9 - Acute kidney failure, unspecified (2) Anemia Code(s): D64.9 - ANEMIA, UNSPECIFIED Qualifiers: Anemia type: other cause Other causes of anemia: other cause, not classified Qualified Code(s): D64.89 - Other specified anemias (3) BPH (benign prostatic hyperplasia) Code(s): N40.0 - BENIGN PROSTATIC HYPERPLASIA WITHOUT LOWER URINRY TRACT SYMP (4) DVT, bilateral lower limbs Code(s): I82.403 - ACUTE EMBOLISM AND THOMBOS UNSP DEEP VEINS OF LOW EXTRM, BI Qualifiers: Affected thrombotic vein of extremity: unspecified vein of extremity Chronicity: acute Qualified Code(s): I82.403 - Acute embolism and thrombosis of unspecified deep veins of lower extremity, bilateral (5) S/P TKR (total knee replacement) Code(s): Z96.659 - PRESENCE OF UNSPECIFIED ARTIFICIAL KNEE JOINT Qualifiers: Laterality: right Qualified Code(s): Z96.651 - Presence of right artificial knee joint Assessment/Plan - Problems (1) Anemia Assessment/Plan: prbc- the h/h better after prbc start po iron supplements- iron panel noted heme FU stool occult blood negative procrit Code(s): D64.9 - ANEMIA, UNSPECIFIED Qualifiers: Anemia type: other cause Other causes of anemia: other cause, not classified Qualified Code(s): D64.89 - Other specified anemias (2) DVT, bilateral lower limbs Assessment/Plan: DC heparin drip give Eliquis 10mg po bid for 7 days then 5mg po bid Code(s): I82.403 - ACUTE EMBOLISM AND THOMBOS UNSP DEEP VEINS OF LOW EXTRM, BI Qualifiers: Affected thrombotic vein of extremity: unspecified vein of extremity Chronicity: acute Qualified Code(s): I82.403 - Acute embolism and thrombosis of unspecified deep veins of lower extremity, bilateral (3) HTN (hypertension) Assessment/Plan: tenormin Code(s): I10 - ESSENTIAL (PRIMARY) HYPERTENSION (4) S/P TKR (total knee replacement) Assessment/Plan: ortho follow up appreciated PT eval Code(s): Z96.659 - PRESENCE OF UNSPECIFIED ARTIFICIAL KNEE JOINT Qualifiers: Laterality: right Qualified Code(s): Z96.651 - Presence of right artificial knee joint (5) BPH (benign prostatic hyperplasia) Assessment/Plan: Increase flomax 0.8 ON PROSCAR DC DUGAN--TRIAL OF VOIDING Code(s): N40.0 - BENIGN PROSTATIC HYPERPLASIA WITHOUT LOWER URINRY TRACT SYMP (6) Acute renal failure Assessment/Plan: renal function improving Off iv fluids hyperkalemia: resolved Code(s): N17.9 - ACUTE KIDNEY FAILURE, UNSPECIFIED Qualifiers: Acute renal failure type: unspecified Qualified Code(s): N17.9 - Acute kidney failure, unspecified
--- NOTE | 2017-04-23 12:45 | PN ---
Progress Note, Physician Chief Complaint: The patient seen in his room. Seems very emotional and crying. " I have nobody, Doc to help me" Getting out of bed is almost an impossibility, as per the nurse. Requires extensive assistance. - Current Medication List Current Medications: Active Medications Apixaban (Eliquis -) 10 mg PO BID [facility] Atenolol (Tenormin -) 25 mg PO BID [facility] Last Admin: 04/23/17 09:01 Dose: 25 mg Ferrous Sulfate (Feosol -) 325 mg PO BID [facility] Last Admin: 04/23/17 09:00 Dose: 325 mg Finasteride (Proscar -) 5 mg PO DAILY [facility] Last Admin: 04/23/17 09:01 Dose: 5 mg Pantoprazole Sodium (Protonix -) 40 mg PO DAILY [facility] Last Admin: 04/23/17 09:00 Dose: 40 mg Polyethylene Glycol (Miralax (For Daily Use) -) 17 gm PO BID [facility] Last Admin: 04/23/17 09:01 Dose: 17 grams Senna (Senna -) 1 tab PO HS [facility] Last Admin: 04/22/17 21:15 Dose: 1 tab Tamsulosin HCl (Flomax -) 0.8 mg PO DAILY@0830 [facility] - Objective Vital Signs: Vital Signs Temperature 98.7 F 04/23/17 05:45 Pulse Rate 64 04/23/17 09:00 Respiratory Rate 18 04/23/17 09:00 Blood Pressure 128/64 04/23/17 09:00 O2 Sat by Pulse Oximetry (%) 96 04/23/17 09:00 Constitutional: Yes: Anxious, Mild Distress, Pallor HENT: Yes: Normocephalic Cardiovascular: Yes: S1, S2 Respiratory: Yes: Regular, Diminished Gastrointestinal: Yes: Normal Bowel Sounds, Abdomen, Obese Musculoskeletal: Yes: Joint Stiffness, Muscle Pain Edema: Yes Labs: CBC, BMP 04/23/17 06:45 04/23/17 06:45 INR, PTT INR 1.39 (0.82-1.09) H 04/19/17 21:54 Problem List - Problems (1) Acute renal failure Code(s): N17.9 - ACUTE KIDNEY FAILURE, UNSPECIFIED Qualifiers: Acute renal failure type: unspecified Qualified Code(s): N17.9 - Acute kidney failure, unspecified (2) Anemia Code(s): D64.9 - ANEMIA, UNSPECIFIED Qualifiers: Anemia type: other cause Other causes of anemia: other cause, not classified Qualified Code(s): D64.89 - Other specified anemias (3) BPH (benign prostatic hyperplasia) Code(s): N40.0 - BENIGN PROSTATIC HYPERPLASIA WITHOUT LOWER URINRY TRACT SYMP (4) DVT, bilateral lower limbs Code(s): I82.403 - ACUTE EMBOLISM AND THOMBOS UNSP DEEP VEINS OF LOW EXTRM, BI Qualifiers: Affected thrombotic vein of extremity: unspecified vein of extremity Chronicity: acute Qualified Code(s): I82.403 - Acute embolism and thrombosis of unspecified deep veins of lower extremity, bilateral (5) HLD (hyperlipidemia) Code(s): E78.5 - HYPERLIPIDEMIA, UNSPECIFIED (6) HTN (hypertension) Code(s): I10 - ESSENTIAL (PRIMARY) HYPERTENSION (7) Hyperkalemia Code(s): E87.5 - HYPERKALEMIA Assessment/Plan 76 y/o male with recent knee surgery, admitted with Acute renal failure and profound azotemia. The renal functions are at his baseline. Curiel catheter is place, draining large amount of urine. The vital signs are in acceptable range. On Flomax and Finasteride for BPH. Needs intensive PT to initiate ambulation. Vianca Gomez MD
--- NOTE | 2017-04-23 18:50 | PN ---
Progress Note (short form) - Note Progress Note: AVSS INCISION CLEAN AND DRY ROM 0-80 CALF SOFT AND NT IM[P: IMPROVING PLAN: OOB, PT, DC PLANNING
[2017-04-23] MEDS: oxyCODONE HCL 5 MG TABLET PO PRN (19:36)
[2017-04-23] MEDS: SENNOSIDES 8.6MG TABLET (FP) PO SCH (21:35)
[2017-04-23] MEDS: APIXABAN 5 MG TABLET PO SCH (21:36)
[2017-04-24 07:11] LABS: MCH 27.9 pg (25.7-33.7); MCHC 32.7 g/dl (32.0-35.9); MEAN CELL VOLUME 85.2 fl (80-96); MEAN PLT VOLUME 9.9 fl (7.5-11.1); PLATELET COUNT 267 K/MM3 (134-434); RDW 18.7 % (11.9-15.9); WHITE BLOOD COUNT 15.5 K/mm3 (4.0-10.0)
[2017-04-24] MEDS ORDERED: PT OWN MED DRAWER 7, Y5N ONE ×4 (09:05→21:38)
[2017-04-24] MEDS: FERROUS SO4 325 MG TABLET (FP) PO SCH ×2 (09:21→21:55)
[2017-04-24] MEDS: FINASTERIDE 5 MG TABLET (FP) PO SCH (09:21)
[2017-04-24] MEDS: ATENOLOL 25 MG TABLET (FP) PO SCH ×2 (09:21→21:55)
[2017-04-24] MEDS: TAMSULOSIN HCL 0.4 MG CAP.ER.24H (FP) PO SCH (09:21)
[2017-04-24] MEDS: PANTOPRAZOLE 40 MG TABLET (FP) PO SCH (09:21)
[2017-04-24] MEDS: APIXABAN 5 MG TABLET PO SCH ×2 (09:21→21:55)
[2017-04-24] MEDS: oxyCODONE HCL 5 MG TABLET PO PRN ×2 (09:28→21:55)
[2017-04-24] MEDS: POLYETHYLENE GLYCOL 3350 119 GM BTL PO SCH ×2 (09:44→21:55)
--- NOTE | 2017-04-24 11:04 | CON.GU ---
Consult Consult Specialty:: for Dr. Dez Loja Referred by:: Jake Reason for Consultation:: urinary retention - History of Present Illness Chief Complaint: DVT History of Present Illness: 76 yo m w hx DVT, HTN, NIDDM, BPH on flomax and proscar, adm 04/20/17, ~ 1 week s/p TKR c/o LE pain and difficulty voiding. He had rodriguez inserted and flomax was increased to .8 mg daily however he failed trial of void and rodriguez reinserted and cons req. - History Source History Provided By: Medical Record Limitations to Obtaining History: No Limitations - Past Medical History Cardio/Vascular: Yes: HTN, Hyperlipdemia Renal/: Yes: BPH Musculoskeletal: Yes: Osteoarthritis - Past Surgical History Past Surgical History: Yes: Joint Replacement - Alcohol/Substance Use Hx Alcohol Use: No - Smoking History Smoking history: Never smoked Have you smoked in the past 12 months: No - Social History Usual Living Arrangement: With Spouse Home Medications - Allergies Allergies/Adverse Reactions: Allergies Allergy/AdvReac Type Severity Reaction Status Date / Time codeine Allergy Severe Nausea Verified 04/19/17 21:25 - Home Medications Home Medications: Ambulatory Orders Amlodipine Besylate 10 mg PO DAILY 04/05/17 Apixaban [Eliquis] 2.5 mg PO DAILY 04/05/17 Atenolol [Tenormin -] 100 mg PO DAILY 04/05/17 Gabapentin 100 mg PO TID 04/05/17 Interferon Beta-1A/Albumin [Rebif 44 Mcg/0.5 ml Syringe] 44 mcg SQ ASDIR Metformin HCl [Metformin HCl ER] 500 mg PO DAILY 04/05/17 Omeprazole 20 mg PO DAILY 04/05/17 Tamsulosin HCl [Flomax -] 0.4 mg PO DAILY 04/05/17 Oxycodone HCl/Acetaminophen [Percocet 5-325 mg Tablet] 1 - 2 tab PO Q6H #50 tab MDD 8 04/12/17 Oxycodone HCl/Acetaminophen [Percocet 10-325 mg Tablet] 1 each PO QID #50 tablet MDD 4 04/14/17 Review of Systems - Review of Systems Genitourinary: reports: Other (difficulty voiding) Physical Exam- Vital Signs: Vital Signs Temperature 99.6 F 04/24/17 06:00 Pulse Rate 72 04/24/17 09:00 Respiratory Rate 18 04/24/17 09:00 Blood Pressure 122/50 04/24/17 09:00 O2 Sat by Pulse Oximetry (%) 97 04/23/17 21:00 Constitutional: Yes: Well Nourished, No Distress, Calm Eyes: Yes: WNL HENT: Yes: WNL Neck: Yes: WNL Cardiovascular: Yes: WNL Renal/: Yes: Rodriguez Present Scrotum: Yes: WNL Penis: Yes: WNL Prostate Exam: Yes: Swollen Labs: CBC, BMP 04/24/17 06:45 04/23/17 06:45 Imaging - Results Ultrasound: Report Reviewed Assessment/Plan Imp: urinary retention, BPH, DVT Rec: cont rodrgiuez until OOB ambulating. Ok for disch w rodriguez. cont flomax .8 qd and proscar. F/U w Dr. Dez Loja for cystoscopy and rodriguez removal.
[2017-04-24 11:47] LABS: URINE APPEARANCE CLOUDY; URINE BILIRUBIN NEGATIVE (NEGATIVE); URINE BLOOD 2+ (NEGATIVE); URINE GLUCOSE (UA) NEGATIVE (NEGATIVE); URINE KETONE 1+ (NEGATIVE); URINE NITRITE POSITIVE (NEGATIVE); URINE UROBILINOGEN 4.0 E.U/dl mg/dL (0.2-1.0)
[2017-04-24 11:49] LABS: URINE COLOR DK YELLOW; URINE PROTEIN 2+ (NEGATIVE)
[2017-04-24 11:53] LABS: URINE BACTERIA RARE /hpf (NONE SEEN); URINE RBC 29 /hpf (0-3); URINE WBC 439 /hpf (3-5)
--- NOTE | 2017-04-24 13:30 | PN ---
Progress Note, Physician - Current Medication List Current Medications: Active Medications Apixaban (Eliquis -) 10 mg PO BID [facility] Last Admin: 04/24/17 09:21 Dose: 10 mg Atenolol (Tenormin -) 25 mg PO BID [facility] Last Admin: 04/24/17 09:21 Dose: 25 mg Ferrous Sulfate (Feosol -) 325 mg PO BID [facility] Last Admin: 04/24/17 09:21 Dose: 325 mg Finasteride (Proscar -) 5 mg PO DAILY [facility] Last Admin: 04/24/17 09:21 Dose: 5 mg Oxycodone HCl (Roxicodone -) 5 mg PO Q6H PRN PRN Reason: PAIN Last Admin: 04/24/17 09:28 Dose: 5 mg Pantoprazole Sodium (Protonix -) 40 mg PO DAILY [facility] Last Admin: 04/24/17 09:21 Dose: 40 mg Polyethylene Glycol (Miralax (For Daily Use) -) 17 gm PO BID [facility] Last Admin: 04/24/17 09:44 Dose: 17 grams Senna (Senna -) 1 tab PO HS [facility] Last Admin: 04/23/17 21:35 Dose: 1 tab Tamsulosin HCl (Flomax -) 0.8 mg PO DAILY@0830 [facility] Last Admin: 04/24/17 09:21 Dose: 0.8 mg - Objective Vital Signs: Vital Signs Temperature 99.6 F 04/24/17 06:00 Pulse Rate 72 04/24/17 09:00 Respiratory Rate 18 04/24/17 09:00 Blood Pressure 122/50 04/24/17 09:00 O2 Sat by Pulse Oximetry (%) 97 04/23/17 21:00 Cardiovascular: Yes: Regular Rate and Rhythm Respiratory: Yes: Regular, CTA Bilaterally Gastrointestinal: Yes: Normal Bowel Sounds, Soft. No: Tenderness Labs: CBC, BMP 04/24/17 06:45 04/23/17 06:45 INR, PTT INR 1.39 (0.82-1.09) H 04/19/17 21:54 Problem List - Problems (1) Acute renal failure Code(s): N17.9 - ACUTE KIDNEY FAILURE, UNSPECIFIED Qualifiers: Acute renal failure type: unspecified Qualified Code(s): N17.9 - Acute kidney failure, unspecified (2) Anemia Code(s): D64.9 - ANEMIA, UNSPECIFIED Qualifiers: Anemia type: other cause Other causes of anemia: other cause, not classified Qualified Code(s): D64.89 - Other specified anemias (3) BPH (benign prostatic hyperplasia) Code(s): N40.0 - BENIGN PROSTATIC HYPERPLASIA WITHOUT LOWER URINRY TRACT SYMP (4) DVT, bilateral lower limbs Code(s): I82.403 - ACUTE EMBOLISM AND THOMBOS UNSP DEEP VEINS OF LOW EXTRM, BI Qualifiers: Affected thrombotic vein of extremity: unspecified vein of extremity Chronicity: acute Qualified Code(s): I82.403 - Acute embolism and thrombosis of unspecified deep veins of lower extremity, bilateral (5) S/P TKR (total knee replacement) Code(s): Z96.659 - PRESENCE OF UNSPECIFIED ARTIFICIAL KNEE JOINT Qualifiers: Laterality: right Qualified Code(s): Z96.651 - Presence of right artificial knee joint Assessment/Plan - Problems (1) Anemia Assessment/Plan: prbc- the h/h better after prbc start po iron supplements- iron panel noted heme FU stool occult blood negative procrit Code(s): D64.9 - ANEMIA, UNSPECIFIED Qualifiers: Anemia type: other cause Other causes of anemia: other cause, not classified Qualified Code(s): D64.89 - Other specified anemias (2) DVT, bilateral lower limbs Assessment/Plan: DC heparin drip give Eliquis 10mg po bid for 7 days then 5mg po bid Code(s): I82.403 - ACUTE EMBOLISM AND THOMBOS UNSP DEEP VEINS OF LOW EXTRM, BI Qualifiers: Affected thrombotic vein of extremity: unspecified vein of extremity Chronicity: acute Qualified Code(s): I82.403 - Acute embolism and thrombosis of unspecified deep veins of lower extremity, bilateral (3) HTN (hypertension) Assessment/Plan: tenormin Code(s): I10 - ESSENTIAL (PRIMARY) HYPERTENSION (4) S/P TKR (total knee replacement) Assessment/Plan: ortho follow up appreciated PT eval Code(s): Z96.659 - PRESENCE OF UNSPECIFIED ARTIFICIAL KNEE JOINT Qualifiers: Laterality: right Qualified Code(s): Z96.651 - Presence of right artificial knee joint (5) BPH (benign prostatic hyperplasia) Assessment/Plan: Increase flomax 0.8 ON PROSCAR DC DUGAN--TRIAL OF VOIDING Code(s): N40.0 - BENIGN PROSTATIC HYPERPLASIA WITHOUT LOWER URINRY TRACT SYMP (6) Acute renal failure Assessment/Plan: renal function improving Off iv fluids hyperkalemia: resolved Code(s): N17.9 - ACUTE KIDNEY FAILURE, UNSPECIFIED Qualifiers: Acute renal failure type: unspecified Qualified Code(s): N17.9 - Acute kidney failure, unspecified
[2017-04-24 14:15] LABS: URINE LEUK ESTERASE 2+ (NEGATIVE)
--- NOTE | 2017-04-24 15:45 | PN ---
Progress Note, Physician Chief Complaint: The patient seen in his room. reports no new problems. Curiel catheter draining large amounts of urine. - Current Medication List Current Medications: Active Medications Apixaban (Eliquis -) 10 mg PO BID [facility] Last Admin: 04/24/17 09:21 Dose: 10 mg Atenolol (Tenormin -) 25 mg PO BID [facility] Last Admin: 04/24/17 09:21 Dose: 25 mg Ferrous Sulfate (Feosol -) 325 mg PO BID [facility] Last Admin: 04/24/17 09:21 Dose: 325 mg Finasteride (Proscar -) 5 mg PO DAILY [facility] Last Admin: 04/24/17 09:21 Dose: 5 mg Oxycodone HCl (Roxicodone -) 5 mg PO Q6H PRN PRN Reason: PAIN Last Admin: 04/24/17 09:28 Dose: 5 mg Pantoprazole Sodium (Protonix -) 40 mg PO DAILY [facility] Last Admin: 04/24/17 09:21 Dose: 40 mg Polyethylene Glycol (Miralax (For Daily Use) -) 17 gm PO BID [facility] Last Admin: 04/24/17 09:44 Dose: 17 grams Senna (Senna -) 1 tab PO HS [facility] Last Admin: 04/23/17 21:35 Dose: 1 tab Tamsulosin HCl (Flomax -) 0.8 mg PO DAILY@0830 [facility] Last Admin: 04/24/17 09:21 Dose: 0.8 mg - Objective Vital Signs: Vital Signs Temperature 98.1 F 04/24/17 14:21 Pulse Rate 61 04/24/17 14:21 Respiratory Rate 18 04/24/17 09:00 Blood Pressure 117/53 04/24/17 14:21 O2 Sat by Pulse Oximetry (%) 97 04/23/17 21:00 Constitutional: Yes: Well Nourished, No Distress Eyes: Yes: Conjunctiva Clear HENT: Yes: Normocephalic Neck: Yes: Trachea Midline Respiratory: Yes: CTA Bilaterally, Accessory Muscle Use Gastrointestinal: Yes: Normal Bowel Sounds, Abdomen, Obese Musculoskeletal: Yes: Back Pain, Joint Stiffness Neurological: Yes: Oriented Labs: CBC, BMP 04/24/17 06:45 04/23/17 06:45 INR, PTT INR 1.39 (0.82-1.09) H 04/19/17 21:54 Problem List - Problems (1) Acute renal failure Code(s): N17.9 - ACUTE KIDNEY FAILURE, UNSPECIFIED Qualifiers: Acute renal failure type: unspecified Qualified Code(s): N17.9 - Acute kidney failure, unspecified (2) Anemia Code(s): D64.9 - ANEMIA, UNSPECIFIED Qualifiers: Anemia type: other cause Other causes of anemia: other cause, not classified Qualified Code(s): D64.89 - Other specified anemias (3) BPH (benign prostatic hyperplasia) Code(s): N40.0 - BENIGN PROSTATIC HYPERPLASIA WITHOUT LOWER URINRY TRACT SYMP (4) DVT, bilateral lower limbs Code(s): I82.403 - ACUTE EMBOLISM AND THOMBOS UNSP DEEP VEINS OF LOW EXTRM, BI Qualifiers: Affected thrombotic vein of extremity: unspecified vein of extremity Chronicity: acute Qualified Code(s): I82.403 - Acute embolism and thrombosis of unspecified deep veins of lower extremity, bilateral (5) HLD (hyperlipidemia) Code(s): E78.5 - HYPERLIPIDEMIA, UNSPECIFIED (6) HTN (hypertension) Code(s): I10 - ESSENTIAL (PRIMARY) HYPERTENSION (7) Hyperkalemia Code(s): E87.5 - HYPERKALEMIA Assessment/Plan 76 y/o male with recent knee surgery, admitted with Acute renal failure and profound Azotemia. The renal functions are at his baseline. Curiel catheter is place, draining large amount of urine. follow up noted. The vital signs are in acceptable range. On Flomax and Finasteride for BPH. Ambulatory status very poor. Needs intensive PT to initiate ambulation. Vianca Gomez MD
[2017-04-24] MEDS: SENNOSIDES 8.6MG TABLET (FP) PO SCH (21:55)
[2017-04-25 07:09] LABS: BASOPHIL 0.8 % (0-2.0); EOSINOPHIL 2.4 % (0-4.5); MCH 28.3 pg (25.7-33.7); MCHC 33.3 g/dl (32.0-35.9); MEAN PLT VOLUME 9.7 fl (7.5-11.1); NEUTROPHILS 81.5 % (42.8-82.8); PLATELET COUNT 286 K/MM3 (134-434); WHITE BLOOD COUNT 10.4 K/mm3 (4.0-10.0)
[2017-04-25 07:48] LABS: ALBUMIN 1.8 g/dl (3.4-5.0); ALK PHOS 54 U/L (45-117); ANION GAP 9 (8-16); BILIRUBIN,TOTAL 0.9 mg/dL (0.2-1.0); CALCIUM 7.5 mg/dL (8.5-10.1); CO2 24 mmol/L (21-32); CREATININE 0.7 mg/dL (0.7-1.3); GLUCOSE,RANDOM 130 mg/dL (74-106); SGOT/AST 20 U/L (15-37); SGPT/ALT 19 U/L (12-78); TOT PROT 4.6 g/dl (6.4-8.2)
[2017-04-25 07:49] LABS: INR 2.02 (0.82-1.09); PROTHROMBIN TIME (PATIENT) 22.8 SEC (9.98-11.88)
[2017-04-25] MEDS ORDERED: PT OWN MED DRAWER 7, Y5N ONE (09:10)
[2017-04-25] MEDS: TAMSULOSIN HCL 0.4 MG CAP.ER.24H (FP) PO SCH (09:31)
[2017-04-25] MEDS: ATENOLOL 25 MG TABLET (FP) PO SCH (09:32)
[2017-04-25] MEDS: PANTOPRAZOLE 40 MG TABLET (FP) PO SCH (09:32)
[2017-04-25] MEDS: FERROUS SO4 325 MG TABLET (FP) PO SCH (09:32)
[2017-04-25] MEDS: APIXABAN 5 MG TABLET PO SCH (09:32)
[2017-04-25] MEDS: FINASTERIDE 5 MG TABLET (FP) PO SCH (09:32)
[2017-04-25] MEDS: POLYETHYLENE GLYCOL 3350 119 GM BTL PO SCH (09:35)
[2017-04-25] MEDS: oxyCODONE HCL 5 MG TABLET PO PRN ×2 (09:38→15:30)
--- NOTE | 2017-04-25 09:42 | CONSULT ---
Consult - Past Medical History Cardio/Vascular: Yes: HTN, Hyperlipdemia Renal/: Yes: BPH Musculoskeletal: Yes: Osteoarthritis - Past Surgical History Past Surgical History: Yes: Joint Replacement - Alcohol/Substance Use Hx Alcohol Use: No - Smoking History Smoking history: Never smoked Have you smoked in the past 12 months: No - Social History Usual Living Arrangement: With Spouse Home Medications - Allergies Allergies/Adverse Reactions: Allergies Allergy/AdvReac Type Severity Reaction Status Date / Time codeine Allergy Severe Nausea Verified 04/19/17 21:25 - Home Medications Home Medications: Ambulatory Orders Amlodipine Besylate 10 mg PO DAILY 04/05/17 Apixaban [Eliquis] 2.5 mg PO DAILY 04/05/17 Atenolol [Tenormin -] 100 mg PO DAILY 04/05/17 Gabapentin 100 mg PO TID 04/05/17 Interferon Beta-1A/Albumin [Rebif 44 Mcg/0.5 ml Syringe] 44 mcg SQ ASDIR Metformin HCl [Metformin HCl ER] 500 mg PO DAILY 04/05/17 Omeprazole 20 mg PO DAILY 04/05/17 Tamsulosin HCl [Flomax -] 0.4 mg PO DAILY 04/05/17 Oxycodone HCl/Acetaminophen [Percocet 5-325 mg Tablet] 1 - 2 tab PO Q6H #50 tab MDD 8 04/12/17 Oxycodone HCl/Acetaminophen [Percocet 10-325 mg Tablet] 1 each PO QID #50 tablet MDD 4 04/14/17 Physical Exam Vital Signs: Vital Signs Temperature 98.5 F 04/25/17 06:00 Pulse Rate 102 H 04/25/17 06:00 Respiratory Rate 18 04/25/17 06:00 Blood Pressure 130/88 04/25/17 06:00 O2 Sat by Pulse Oximetry (%) 96 04/24/17 21:00 Labs: CBC, BMP 04/25/17 06:35 04/25/17 06:35 Assessment/Plan Vascular Surgery 76 y/o man with 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 Per [place] staff, pt underwent LE doppler which was positive for b/l LE DVT. He was subsequently referred to ED. - Past Medical History Cardiovascular: Yes: HTN, Hyperlipdemia Renal/: Yes: BPH Heme/Onc: Yes: Other (DVT ) Musculoskeletal: Yes: Osteoarthritis - Past Surgical History Past Surgical History: Yes: Joint Replacement - Smoking History Smoking history: Never smoked Have you smoked in the past 12 months: No - Alcohol/Substance Use Hx Alcohol Use: No Home Medications - Allergies Allergies/Adverse Reactions: Allergies Allergy/AdvReac Type Severity Reaction Status Date / Time codeine Allergy Severe Nausea Verified 04/19/17 21:25 - Home Medications Home Medications: Ambulatory Orders Amlodipine Besylate 10 mg PO DAILY 04/05/17 Apixaban [Eliquis] 2.5 mg PO DAILY 04/05/17 Atenolol [Tenormin -] 100 mg PO DAILY 04/05/17 Gabapentin 100 mg PO TID 04/05/17 Interferon Beta-1A/Albumin [Rebif 44 Mcg/0.5 ml Syringe] 44 mcg SQ ASDIR Metformin HCl [Metformin HCl ER] 500 mg PO DAILY 04/05/17 Omeprazole 20 mg PO DAILY 04/05/17 Tamsulosin HCl [Flomax -] 0.4 mg PO DAILY 04/05/17 Oxycodone HCl/Acetaminophen [Percocet 5-325 mg Tablet] 1 - 2 tab PO Q6H #50 tab MDD 8 04/12/17 Oxycodone HCl/Acetaminophen [Percocet 10-325 mg Tablet] 1 each PO QID #50 tablet MDD 4 04/14/17 PE Head - Nc/At Lung - cTA Heart - RRR abd - soft,nt,nd ext - warm, pink. S/P right TKR A/P History of prior DVT's. Reviewed heme notes. This is not eliquis failure, and pt can be safely restarted on eliquis. Pt given PRBC, and H/H is coming up nicely. Also pt is guiac negative. No need for IVC filter insertion at this time, since pt can be safely restarted on eliquis. Kyle Bethea DO
--- NOTE | 2017-04-25 11:41 | DS ---
Physical Examination Vital Signs: Vital Signs Temperature 98.5 F 04/25/17 06:00 Pulse Rate 102 H 04/25/17 06:00 Respiratory Rate 18 04/25/17 06:00 Blood Pressure 130/88 04/25/17 06:00 O2 Sat by Pulse Oximetry (%) 96 04/24/17 21:00 Constitutional: Yes: Well Nourished, No Distress, Calm Cardiovascular: Yes: Regular Rate and Rhythm Respiratory: Yes: Regular Renal/: Yes: Rodriguez Present Edema: No Peripheral Pulses WNL: Yes Integumentary: Yes: WNL Labs: CBC, BMP 04/25/17 06:35 04/25/17 06:35 Discharge Summary Reason For Visit: ACUTE RENAL FAILURE,ANEMIA,DEEP VEIN THROMBOSIS Current Active Problems Acute renal failure (Acute) Anemia (Acute) BPH (benign prostatic hyperplasia) (Acute) DVT, bilateral lower limbs (Acute) HLD (hyperlipidemia) (Acute) HTN (hypertension) (Acute) Hyperkalemia (Acute) S/P TKR (total knee replacement) (Acute) Hospital Course: 76 y/o man with 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 Per [place] staff, pt underwent LE doppler which was positive for b/l LE DVT. He was subsequently referred to ED. He was evaluated by Urology, Nephrology, hematology and Vascular Sx. Urology-maintain rodriguez, Follow up with Dr Huynh in 1 week Hematology- no need for IVC filter, continue eliquis. Pt has prior hx of DVT's Vascular sx-no need for IVC filter, continue eliquis. Pt has prior hx of DVT's Condition: Stable - Instructions Diet, Activity, Other Instructions: -diabetic, low sodium diet - Maintain Rodriguez until patient sees Urology Dr Ulrich Referrals: Julissa Joseph MD [Primary Care Provider] - [facility] - Home Medications Comprehensive Discharge Medication List: Ambulatory Orders Amlodipine Besylate 10 mg PO DAILY 04/05/17 Apixaban [Eliquis] 2.5 mg PO DAILY 04/05/17 Atenolol [Tenormin -] 100 mg PO DAILY 04/05/17 Gabapentin 100 mg PO TID 04/05/17 Interferon Beta-1A/Albumin [Rebif 44 Mcg/0.5 ml Syringe] 44 mcg SQ ASDIR Metformin HCl [Metformin HCl ER] 500 mg PO DAILY 04/05/17 Omeprazole 20 mg PO DAILY 04/05/17 Tamsulosin HCl [Flomax -] 0.4 mg PO DAILY 04/05/17 Oxycodone HCl/Acetaminophen [Percocet 5-325 mg Tablet] 1 - 2 tab PO Q6H #50 tab MDD 8 04/12/17 Oxycodone HCl/Acetaminophen [Percocet 10-325 mg Tablet] 1 each PO QID #50 tablet MDD 4 04/14/17
--- NOTE | 2017-04-25 15:40 | PROC ---
Procedure Note Procedure: MARKEDLY IMPROVED TODAY SWELLING DOWN AND ROM INCREASING HE WAS ABLE TO AMBULATE WITH PT TODAY PLAN: CONTINUE PT AND DC WHEN MEDICALLY OK
[2017-04-25 15:48] VITALS: BP 117/56; PULSE 56; TEMP 98.1
== END 2017-04-25 16:36 | DRG 300 ==
LOC: SUPCPDRO 21:12 → JER 21:12 → JICU 04-20 03:29 → J5S 04-20 18:32
PROVIDERS: ADMIT Family Medicine; ATTEND Family Medicine
DX: I82.413 Acute embolism and thrombosis of femoral vein, bilateral (principal); N17.9 Acute kidney failure, unspecified; N13.8 Other obstructive and reflux uropathy; I10 Essential (primary) hypertension; E78.5 Hyperlipidemia, unspecified; E11.9 Type 2 diabetes mellitus without complications; Z79.84 Long term (current) use of oral hypoglycemic drugs; E87.5 Hyperkalemia; D64.9 Anemia, unspecified; Z96.651 Presence of right artificial knee joint; Z86.718 Personal history of other venous thrombosis and embolism; Z79.01 Long term (current) use of anticoagulants; K59.00 Constipation, unspecified; R33.9 Retention of urine, unspecified; N40.1 Benign prostatic hyperplasia with lower urinary tract symptoms; N32.0 Bladder-neck obstruction; E86.0 Dehydration
CPT/HCPCS: 36415; 36430; 71010-TC; 76775-TC; 76856-TC; 80048; 80053; 81003; 81015; 82272; 82550; 82553; 82570; 82607; 82728; 82746; 82784; 83540; 83550; 83605; 83615; 83735; 84100; 84155; 84156; 84165; 84300; 84484; 84540; 85025; 85027; 85044; 85610; 85730; 86334; 86850; 86900; 86901; 86922; 87086; 87186; 93005; 93010; 93970-TC; 93976; 97116-GP; 97162-GP; 99282-25; J1644; P9038; P9058

== ENCOUNTER 2017-08-29 05:12 | Day surgery (SDC) | payer OTHER ==
[2017-07-21 16:13] VITALS: BMI 34.0
[2017-08-29 11:12] LABS: INR 1.05 (0.82-1.09); PROTHROMBIN TIME (PATIENT) 11.9 SEC (9.98-11.88)
[2017-08-29] MEDS ORDERED: MIDAZOLAM HCL 2 MG/2 ML SINGLE DOSE VIAL ONE (12:53)
[2017-08-29] MEDS ORDERED: PROPOFOL 20 ML ONE (12:58)
[2017-08-29] MEDS ORDERED: ePHEDrine SULFATE 50 MG/1 ML AMPULE ONE (13:35)
--- NOTE | 2017-08-29 14:14 | OP ---
Operative Note - Note: Operative Date: 08/29/17 Pre-Operative Diagnosis: bph/urinary retention Operation: turp/tuvp with bipolar system Findings: obstructive prostate with 2-3+ bladder trabeculation with cellules and catheter trauma Post-Operative Diagnosis: Same as Pre-op Surgeon: Vernon Ulrich Anesthesia: General Drains & Tubes with Location: [address]z
[2017-08-29] MEDS ORDERED: ONDANSETRON 4 MG/2 ML VIAL IVPUSH PRN (14:50)
[2017-08-29] MEDS ORDERED: LACTATED RINGERS SOLUTION 1,000 ML IV SCH (15:00)
[2017-08-29 15:34] VITALS: TEMP 97.8
[2017-08-29 17:40] VITALS: BP 147/76; PULSE 72
--- NOTE | 2017-08-29 21:02 | OP ---
DATE OF OPERATION: 08/29/2017 PREOPERATIVE DIAGNOSIS: Benign prostatic hypertrophy with urinary retention. POSTOPERATIVE DIAGNOSIS: Benign prostatic hypertrophy with urinary retention. PROCEDURE: Transurethral resection and transurethral vaporization of the prostate with bipolar system. ATTENDING: Hugo Jacob MD ANESTHESIA: General. DESCRIPTION OF PROCEDURE: The patient was brought in the operating room, placed in supine position on the operating room table. General anesthesia was administered as was preoperative antibiotics. At this time, the patient was placed in dorsal lithotomy position and prepped and draped in the usual sterile manner. Cystoscopy was performed, and a 2+ to 3+ obstructive prostate was noted. The bladder was remarkable for a 2+ to 3+ bladder trabeculation with small diverticula and multiple cellules. Both ureteral orifices were identified. At this point, the bipolar resectoscope was utilized. Utilizing the bipolar system, the loop element was initially placed. Resection of the prostate from the verumontanum to the bladder neck was performed in a 360-degree fashion to debulk the prostate. Once this was performed, the button element was then utilized. The button element was utilized for vaporization and hemostasis. Excellent hemostasis was obtained. All prostatic chips were removed from the bladder utilizing the Audioscribe evacuator. The disposition of the patient was to the recovery room. The patient was left with a cavity to light traction. Clear drainage was noted. The patient will be followed up in 3 days for removal of his Curiel catheter on an outpatient basis. HUGO JACOB M.D. [id number]
--- NOTE | 2017-08-31 15:08 | PATH ---
Surgical Pathology Report Patient Name: AGUSTÍN MARTIN Med. Rec. #: [id number] /Age/Gender: 1940 (Age: 76) / M Account: [id number] Location: [facility] SURGICAL Taken: 08/29/2017 Received: 08/30/2017 Reported: 08/31/2017 Physicians: Vernon Ulrich Specimen(s) Received PROSTATE CHIPS Clinical History Neoplasm of uncertain behavior prostate Final Diagnosis PROSTATE, TUR: BENIGN PROSTATIC HYPERPLASIA WITH AREAS OF ATROPHY AND ACUTE INFLAMMATION. Electronically Signed Wilfred Perez M.D. Gross Description Received in formalin labeled "prostate tissue," is a 5 g, 4.5 x 4.0 x 0.5 cm aggregate of armando, firm to rubbery portions of tissue, consistent with prostate chips. The specimen is entirely submitted in 6 cassettes. /08/30/2017 saudi08/30/2017
== END 2017-08-29 17:00 | disposition home or self-care (01) ==
LOC: JASU-SURG 05:12
PROVIDERS: ATTEND Urology
PROC: 0VT08ZZ Resection of Prostate, Via Natural or Artificial Opening Endoscopic (ICD-10-PCS; principal; 2017-08-29 11:00)
DX: N40.1 Benign prostatic hyperplasia with lower urinary tract symptoms (principal); R33.8 Other retention of urine
CPT/HCPCS: 36415; 85610; 85730; 88305-TC; 94760

== ENCOUNTER 2020-10-30 05:13 | Day surgery (SDC) | payer OTHER ==
[2020-10-30 09:25] VITALS: BMI 33.2
[2020-10-30 10:44] VITALS: TEMP 97.2
[2020-10-30 11:33] VITALS: BP 132/64; PULSE 60
== END 2020-10-30 11:30 | disposition home or self-care (01) ==
LOC: JASU-ENDO 05:13
PROVIDERS: ATTEND Internal Medicine Gastroenterology
PROC: 0DJD8ZZ Inspection of Lower Intestinal Tract, Via Natural or Artificial Opening Endoscopic (ICD-10-PCS; principal; 2020-10-30 09:53)
DX: Z12.11 Encounter for screening for malignant neoplasm of colon (principal); K57.30 Diverticulosis of large intestine without perforation or abscess without bleeding
CPT/HCPCS: 82962

== ENCOUNTER 2022-10-05 21:58 | Observation (INO) | payer OTHER ==
[2022-10-05 22:23] VITALS: BMI 34.7
[2022-10-05 22:49] LABS: BASO % 0.3 % (0-2.0); EOS % 0.5 % (0-4.5); HEMOGLOBIN 12.9 GM/dL (11.7-16.9); LYMPH % 1.8 % (8-40); MCH 31.1 pg (25.7-33.7); MEAN CELL VOLUME 94.2 fl (80-96); MEAN PLT VOLUME 9.7 fl (7.5-11.1); MONO % 11.6 % (3.8-10.2); NEUT % 85.8 % (42.8-82.8); PLATELET COUNT 129 10^3/uL (134-434); RBC 4.14 M/mm3 (4.00-5.60); WHITE BLOOD COUNT 4.6 K/mm3 (4.0-10.0)
[2022-10-05 22:53] LABS: VENOUS BASE EXCESS -0.3 mmol/L (-2-2); VENOUS O2 SATURATION 66.5 % (70-80); VENOUS PCO2 44.6 mmHg (38-52); VENOUS PH 7.371 (7.310-7.410)
[2022-10-05 23:08] LABS: POTASSIUM 4.7 mmol/L (3.5-5.1)
[2022-10-05 23:10] LABS: CALCIUM 8.3 mg/dL (8.5-10.1)
[2022-10-05 23:11] LABS: ALBUMIN 3.1 g/dl (3.4-5.0); BLOOD UREA NITROGEN 18.5 mg/dL (7-18); MAGNESIUM 1.9 mg/dL (1.8-2.4)
[2022-10-05 23:14] LABS: CREATININE 1.1 mg/dL (0.55-1.3); PHOSPHOROUS 2.1 mg/dL (2.5-4.9)
[2022-10-05 23:15] LABS: TOT PROT 6.2 g/dl (6.4-8.2)
[2022-10-05 23:19] LABS: N-TERMINAL BNP 143.6 pg/ml (5-450)
[2022-10-05 23:54] LABS: BILIRUBIN,TOTAL 0.6 mg/dL (0.2-1)
[2022-10-05] MEDS ORDERED: ACETAMINOPHEN 1000 MG/100 ML BAG IVPB ONE (23:59)
[2022-10-06] MEDS ORDERED: ACETAMINOPHEN INJECTION 100 ML IVPB ONE
[2022-10-06 00:27] LABS: EPI CELLS 5 /uL (0-25.1); HYALINE CASTS 0 /uL (0-3.1); URINE BACTERIA 34 /uL (0-1359); URINE WBC 1462 /uL (0-25.8)
[2022-10-06] MEDS ORDERED: CEFTRIAXONE 1 GM in DEXTROSE 5%-WATER - 100 ML IVPB ONE (00:46)
[2022-10-06] MEDS ORDERED: CEFTRIAXONE 1 GM/50 ML BAG ONE (01:40)
[2022-10-06 09:22] LABS: URINE RBC 99.3 /uL (0-23.9); YEAST MANY (NEGATIVE)
[2022-10-06 09:29] LABS: BASO % 0.6 % (0-2.0); EOS % 2.5 % (0-4.5); HEMATOCRIT 38.2 % (35.4-49); HEMOGLOBIN 12.8 GM/dL (11.7-16.9); LYMPH % 4.7 % (8-40); MCH 31.1 pg (25.7-33.7); MCHC 33.4 g/dl (32.0-35.9); MEAN CELL VOLUME 93.1 fl (80-96); MEAN PLT VOLUME 9.5 fl (7.5-11.1); MONO % 15.4 % (3.8-10.2); NEUT % 76.8 % (42.8-82.8); PLATELET COUNT 135 10^3/uL (134-434); RBC 4.11 M/mm3 (4.00-5.60); RDW 14.3 % (11.9-15.9); WHITE BLOOD COUNT 3.1 K/mm3 (4.0-10.0)
[2022-10-06 09:42] LABS: POTASSIUM 4.2 mmol/L (3.5-5.1)
[2022-10-06 09:46] LABS: CALCIUM 8.3 mg/dL (8.5-10.1)
[2022-10-06 09:48] LABS: BLOOD UREA NITROGEN 13.6 mg/dL (7-18)
[2022-10-06 09:50] LABS: CREATININE 0.9 mg/dL (0.55-1.3)
[2022-10-06 09:51] LABS: BILIRUBIN,TOTAL 0.5 mg/dL (0.2-1)
[2022-10-06 10:14] LABS: PH,URINE 5.5 (5.0-8.0); URINE APPEARANCE Cloudy; URINE BILIRUBIN Negative (NEGATIVE); URINE COLOR Yellow; URINE GLUCOSE (UA) 3+ (NEGATIVE); URINE NITRITE Negative (NEGATIVE); URINE PROTEIN Negative (NEGATIVE); URINE UROBILINOGEN 0.2 mg/dL (0.2-1.0)
[2022-10-06] MEDS ORDERED: ACETAMINOPHEN 325 MG TABLET (FP) PO ONE ×2 (13:20→17:00)
[2022-10-06] MEDS: PANTOPRAZOLE 40 MG TABLET PO SCH (14:50)
[2022-10-06] MEDS: ENOXAPARIN NA (PORCINE) 120 MG/0.8 ML DISP.SYRIN SQ SCH (17:01)
[2022-10-07] MEDS: ENOXAPARIN NA (PORCINE) 120 MG/0.8 ML DISP.SYRIN SQ SCH ×2 (05:16→16:05)
[2022-10-07] MEDS: PANTOPRAZOLE 40 MG TABLET PO SCH (09:55)
[2022-10-07] MEDS: TAMSULOSIN HCL 0.4 MG CAP PO SCH (09:55)
[2022-10-07] MEDS: amLODIPine BESYLATE 10 MG TABLET (FP) PO SCH (09:55)
[2022-10-07] MEDS ORDERED: CEFTRIAXONE 1 GM in DEXTROSE 5%-WATER - 50 ML IVPB SCH (10:00)
[2022-10-07] MEDS: PIPERACILLIN/TAZOB 3.375 GM 3.375 GM in DEXTROSE 5%-WATER - 50 ML IVPB SCH ×2 (13:46→17:18)
[2022-10-07] MEDS: FLUTICASONE PROP 0.05% 16 GM NASAL SPRAY NS SCH (16:05)
[2022-10-07] MEDS: LORATADINE 10 MG TABLET PO SCH (16:06)
[2022-10-08] MEDS: PIPERACILLIN/TAZOB 3.375 GM 3.375 GM in DEXTROSE 5%-WATER - 50 ML IVPB SCH ×3 (01:01→17:23)
[2022-10-08] MEDS: ENOXAPARIN NA (PORCINE) 120 MG/0.8 ML DISP.SYRIN SQ SCH ×2 (03:57→17:22)
[2022-10-08] MEDS: LORATADINE 10 MG TABLET PO SCH (10:18)
[2022-10-08] MEDS: amLODIPine BESYLATE 10 MG TABLET (FP) PO SCH (10:18)
[2022-10-08] MEDS: TAMSULOSIN HCL 0.4 MG CAP PO SCH (10:18)
[2022-10-08] MEDS: PANTOPRAZOLE 40 MG TABLET PO SCH (10:18)
[2022-10-08] MEDS: FLUTICASONE PROP 0.05% 16 GM NASAL SPRAY NS SCH (10:19)
[2022-10-08 16:13] LABS: HEMATOCRIT 39.1 % (35.4-49); HEMOGLOBIN 12.8 GM/dL (11.7-16.9); MCH 30.4 pg (25.7-33.7); MCHC 32.7 g/dl (32.0-35.9); MEAN CELL VOLUME 92.9 fl (80-96); MEAN PLT VOLUME 8.9 fl (7.5-11.1); PLATELET COUNT 140 10^3/uL (134-434); RBC 4.21 M/mm3 (4.00-5.60); RDW 14.6 % (11.9-15.9); WHITE BLOOD COUNT 3.3 K/mm3 (4.0-10.0)
[2022-10-08] MEDS ORDERED: NYSTATIN 100,000 UNIT/GM TOPICAL CREAM 15 GM TUBE TP SCH (22:00)
[2022-10-09 02:03] VITALS: BP 145/85; PULSE 76; RESP 16; TEMP 98.5
[2022-10-13 19:44] LABS: URINE KETONE Trace (NEGATIVE); URINE LEUK ESTERASE Trace (NEGATIVE)
== END 2022-10-08 23:59 | disposition home health service (06) ==
LOC: JER 21:58 → JERBED 10-06 01:33 → J4S 10-06 03:45
PROVIDERS: ADMIT Family Medicine; ATTEND Family Medicine
PROC: 3E03329 Introduction of Other Anti-infective into Peripheral Vein, Percutaneous Approach (ICD-10-PCS; principal; 2022-10-06)
PROC: 3E033NZ Introduction of Analgesics, Hypnotics, Sedatives into Peripheral Vein, Percutaneous Approach (ICD-10-PCS; 2022-10-06)
PROC: 3E023GC Introduction of Other Therapeutic Substance into Muscle, Percutaneous Approach (ICD-10-PCS; 2022-10-06)
DX: N39.0 Urinary tract infection, site not specified (principal); J30.2 Other seasonal allergic rhinitis; E11.9 Type 2 diabetes mellitus without complications; M19.90 Unspecified osteoarthritis, unspecified site; N40.0 Benign prostatic hyperplasia without lower urinary tract symptoms; E78.5 Hyperlipidemia, unspecified; I05.0 Rheumatic mitral stenosis; Z86.718 Personal history of other venous thrombosis and embolism; R33.9 Retention of urine, unspecified
CPT/HCPCS: 0241U-QW; 36415; 70450-TC; 71045-TC-FY; 71275-TC; 72125-TC; 73562-TC-RT-FY; 80053; 80061; 81003; 82550; 82553; 82803; 82962; 83605; 83735; 83880; 84100; 84484; 85025; 85027; 85379; 87040; 87086; 93005; 93010; 93880-TC; 94010; 96365; 96366; 96367; 96372; 96375; 97116-GP; 97161-GP; 99285-25; G0378; Q9967

== ENCOUNTER 2023-09-07 10:14 | Inpatient (IN) | payer OTHER ==
[2023-09-07 10:31] VITALS: BMI 35.4
[2023-09-07] MEDS: SODIUM CHLORIDE 1,000 ML IV STA (12:10)
[2023-09-07 12:21] LABS: BASO % 0.9 % (0-2.0); EOS % 2.2 % (0-4.5); HEMATOCRIT 38.5 % (35.4-49); HEMOGLOBIN 12.4 GM/dL (11.7-16.9); MCH 29.2 pg (25.7-33.7); MCHC 32.2 g/dl (32.0-35.9); MEAN CELL VOLUME 90.8 fl (80-96); MEAN PLT VOLUME 8.2 fl (7.5-11.1); NEUT % 75.9 % (42.8-82.8); PLATELET COUNT 286 10^3/uL (134-434); RBC 4.24 M/mm3 (4.00-5.60); RDW 14.3 % (11.9-15.9); WHITE BLOOD COUNT 5.5 K/mm3 (4.0-10.0)
[2023-09-07 12:50] LABS: POTASSIUM 4.4 mmol/L (3.5-5.1)
[2023-09-07 12:52] LABS: ALBUMIN 2.2 g/dl (3.4-5.0); CALCIUM 8.3 mg/dL (8.5-10.1)
[2023-09-07 12:53] LABS: BLOOD UREA NITROGEN 23.2 mg/dL (7-18)
[2023-09-07 12:55] LABS: CREATININE 1.6 mg/dL (0.55-1.3)
[2023-09-07 12:57] LABS: BILIRUBIN,TOTAL 0.4 mg/dL (0.2-1); TOT PROT 5.9 g/dl (6.4-8.2)
[2023-09-07 13:03] LABS: EPI CELLS >36 /uL (0-25.1); HYALINE CASTS 1121 /uL (0-3.1); URINE APPEARANCE TURBID; URINE BACTERIA 29 /uL (0-1359); URINE BILIRUBIN NEGATIVE (NEGATIVE); URINE COLOR YELLOW; URINE GLUCOSE (UA) 1+ (NEGATIVE); URINE KETONE NEGATIVE (NEGATIVE); URINE LEUK ESTERASE 3+ (NEGATIVE); URINE NITRITE NEGATIVE (NEGATIVE); URINE PROTEIN 3+ (NEGATIVE); URINE UROBILINOGEN 0.2 mg/dL (0.2-1.0); URINE WBC 17900 /uL (0-25.8)
[2023-09-07] MEDS ORDERED: PIPERACILLIN/TAZOB 3.375 GM 3.375 GM/50 ML BAG IVPB ONE (13:17)
[2023-09-07] MEDS: PIPERACILLIN/TAZOB 3.375 GM 3.375 GM in DEXTROSE 5%-WATER - 50 ML IVPB ONE (13:28)
[2023-09-07] MEDS: NYSTATIN 100000 UNIT/GM TOPICAL OINTMENT 15 GM TUBE TP ONE (17:44)
[2023-09-08 08:02] LABS: BASO % 0.5 % (0-2.0); HEMATOCRIT 38.9 % (35.4-49); HEMOGLOBIN 12.8 GM/dL (11.7-16.9); LYMPH % 5.7 % (8-40); MCH 29.6 pg (25.7-33.7); MCHC 32.9 g/dl (32.0-35.9); MEAN PLT VOLUME 8.8 fl (7.5-11.1); NEUT % 80.8 % (42.8-82.8); PLATELET COUNT 301 10^3/uL (134-434); RBC 4.32 M/mm3 (4.00-5.60); RDW 14.6 % (11.9-15.9); WHITE BLOOD COUNT 7.2 K/mm3 (4.0-10.0)
[2023-09-08 08:05] LABS: POTASSIUM 5.2 mmol/L (3.5-5.1)
[2023-09-08 08:14] LABS: ALBUMIN 2.2 g/dl (3.4-5.0); CREATININE 1.5 mg/dL (0.55-1.3)
[2023-09-08 08:15] LABS: BILIRUBIN,TOTAL 0.4 mg/dL (0.2-1); BLOOD UREA NITROGEN 18.9 mg/dL (7-18); CALCIUM 8.6 mg/dL (8.5-10.1); TOT PROT 5.9 g/dl (6.4-8.2)
[2023-09-08 08:16] LABS: MAGNESIUM 2.2 mg/dL (1.8-2.4)
[2023-09-08 08:17] LABS: PHOSPHOROUS 3.3 mg/dL (2.5-4.9)
[2023-09-08] MEDS ORDERED: PIPERACILLIN/TAZOB 3.375 GM 3.375 GM in DEXTROSE 5%-WATER - 50 ML IVPB SCH (10:00)
[2023-09-08] MEDS: amLODIPine BESYLATE 10 MG TABLET (FP) PO SCH (13:42)
[2023-09-08] MEDS: FINASTERIDE 5 MG TABLET (FP) PO SCH (13:42)
[2023-09-08] MEDS: GABAPENTIN 300 MG CAPSULE PO SCH (13:42)
[2023-09-08] MEDS: TAMSULOSIN HCL 0.4 MG CAP PO SCH (13:42)
[2023-09-08] MEDS: PIPERACILLIN/TAZOB 3.375 GM 3.375 GM in DEXTROSE 5%-WATER - 50 ML IVPB SCH ×2 (13:43→18:02)
[2023-09-08] MEDS: PANTOPRAZOLE 20 MG TABLET PO SCH (13:43)
[2023-09-08] MEDS: INSULIN (NOVOLOG) ASPART 100 UNITS/ML 10ML VIAL SQ SCH (13:55)
[2023-09-08] MEDS: SODIUM CHLORIDE 0.45% 1,000 ML IV SCH (15:54)
[2023-09-08] MEDS: SODIUM ZIRCONIUM CYCLOSILICATE (LOKELMA) 5 GM PACKET PO SCH (15:54)
[2023-09-08] MEDS: KETOROLAC TROMETHAMINE 15 MG/ML VIAL IVPUSH PRN (15:55)
[2023-09-08] MEDS: INSULIN ASPART SLIDING SCALE (NOVOLOG) 1 VIAL SQ SCH (16:55)
[2023-09-08] MEDS ORDERED: INSULIN (NOVOLOG) ASPART 100 UNITS/ML 10ML VIAL ONE ×2 (19:00→21:18)
[2023-09-09 09:32] LABS: POTASSIUM 4.3 mmol/L (3.5-5.1)
[2023-09-09 09:36] LABS: BLOOD UREA NITROGEN 17.5 mg/dL (7-18)
[2023-09-09 09:39] LABS: CREATININE 1.3 mg/dL (0.55-1.3)
[2023-09-09 09:40] LABS: TOT PROT 5.6 g/dl (6.4-8.2)
[2023-09-09 09:41] LABS: BILIRUBIN,TOTAL 0.4 mg/dL (0.2-1)
[2023-09-09] MEDS ORDERED: INSULIN (NOVOLOG) ASPART 100 UNITS/ML 10ML VIAL ONE (12:13)
[2023-09-09] MEDS: AMINO ACIDS/PROTEIN HYDROLYS 30 ML LIQUID.PKT PO SCH (17:07)
[2023-09-09] MEDS: POLYETHYLENE GLYCOL (HEALTHYLAX) 3350 17 GM PACKET PO SCH (22:48)
[2023-09-10] MEDS: ACETAMINOPHEN 325 MG TABLET (FP) PO PRN (01:18)
[2023-09-10] MEDS: ACETAMINOPHEN 1000 MG/100 ML BAG IVPB PRN (07:24)
[2023-09-10] MEDS: ASCORBIC ACID 500 MG TABLET (FP) PO SCH (10:08)
[2023-09-10] MEDS: MULTIVITAMINS (DAILY MVI) TABLET (FP) PO SCH (10:08)
[2023-09-10] MEDS: ZINC SULFATE 220 MG CAPSULE (FP) PO SCH (10:08)
[2023-09-10] MEDS ORDERED: INSULIN (NOVOLOG) ASPART 100 UNITS/ML 10ML VIAL ONE (10:25)
[2023-09-12 11:06] LABS: BASO % 0.4 % (0-2.0); HEMATOCRIT 35.5 % (35.4-49); HEMOGLOBIN 11.2 GM/dL (11.7-16.9); LYMPH % 6.2 % (8-40); MCH 28.6 pg (25.7-33.7); MCHC 31.5 g/dl (32.0-35.9); MEAN CELL VOLUME 90.7 fl (80-96); MEAN PLT VOLUME 8.7 fl (7.5-11.1); MONO % 7.6 % (3.8-10.2); NEUT % 80.8 % (42.8-82.8); PLATELET COUNT 254 10^3/uL (134-434); RBC 3.91 M/mm3 (4.00-5.60); RDW 14.9 % (11.9-15.9); WHITE BLOOD COUNT 5.7 K/mm3 (4.0-10.0)
[2023-09-12 11:49] LABS: CALCIUM 8.3 mg/dL (8.5-10.1)
[2023-09-12 11:50] LABS: ALBUMIN 1.7 g/dl (3.4-5.0); BLOOD UREA NITROGEN 27.5 mg/dL (7-18)
[2023-09-12 11:53] LABS: CREATININE 1.2 mg/dL (0.55-1.3)
[2023-09-12 11:55] LABS: BILIRUBIN,TOTAL 0.2 mg/dL (0.2-1)
[2023-09-12 12:13] LABS: POTASSIUM 4.1 mmol/L (3.5-5.1)
[2023-09-13] MEDS ORDERED: INSULIN (NOVOLOG) ASPART 100 UNITS/ML 10ML VIAL ONE (11:26)
[2023-09-13] MEDS: SULFAMETHOXAZOLE/TRIMETHOPRIM 800MG/160MG D.S. TABLET PO SCH (21:34)
[2023-09-14] MEDS: AMINO ACIDS/PROTEIN HYDROLYS 30 ML LIQUID.PKT PO SCH (09:10)
[2023-09-14 14:11] VITALS: BP 119/68; PULSE 83; RESP 20; TEMP 97.9
== END 2023-09-14 19:26 | DRG 690 ==
LOC: JER 10:14 → JERBED 15:17 → J7W 09-08 05:02
PROVIDERS: ADMIT Internal Medicine; ATTEND Internal Medicine
DX: N39.0 Urinary tract infection, site not specified (principal); N17.9 Acute kidney failure, unspecified; R33.9 Retention of urine, unspecified; R31.0 Gross hematuria; N40.1 Benign prostatic hyperplasia with lower urinary tract symptoms; I10 Essential (primary) hypertension; E78.5 Hyperlipidemia, unspecified; E11.9 Type 2 diabetes mellitus without complications; G35 Multiple sclerosis
CPT/HCPCS: 36415; 74176-TC; 80053; 81003; 82962; 83036; 83540; 83735; 84100; 84443; 85025; 87040; 87081; 87086; 97116-GP; 97161-GP; 99285-25; J0131

== ENCOUNTER 2024-04-10 14:41 | Inpatient (IN) | payer OTHER ==
[2024-04-10] MEDS ORDERED: ACETAMINOPHEN INJECTION 100 ML ONE (15:03)
[2024-04-10] MEDS ORDERED: VANCOMYCIN 1,500 MG in DEXTROSE 5%-WATER - 500 ML IVPB ONE (15:05)
[2024-04-10] MEDS: SODIUM CHLORIDE 0.9% 500 ML INFUS.BAG IV ONE (15:21)
[2024-04-10] MEDS: ACETAMINOPHEN 1000 MG/100 ML BAG IVPB ONE (15:22)
[2024-04-10 15:44] LABS: BASO % 0.3 % (0-2.0); EOS % 0.1 % (0-4.5); HEMATOCRIT 36.1 % (35.4-49); HEMOGLOBIN 11.9 GM/dL (11.7-16.9); LYMPH % 2.8 % (8-40); MEAN PLT VOLUME 9.6 fl (7.5-11.1); MONO % 6.6 % (3.8-10.2); NEUT % 90.2 % (42.8-82.8); PLATELET COUNT 161 10^3/uL (134-434); RBC 3.97 M/mm3 (4.00-5.60); RDW 14.5 % (11.9-15.9); WHITE BLOOD COUNT 10.4 K/mm3 (4.0-10.0)
[2024-04-10 15:46] LABS: EPI CELLS 2 /uL (0-25.1); HYALINE CASTS 0 /uL (0-3.1); PH,URINE 5.5 (5.0-8.0); URINE APPEARANCE CLOUDY; URINE BACTERIA >9,000 /uL (0-1359); URINE BILIRUBIN NEGATIVE (NEGATIVE); URINE COLOR YELLOW; URINE GLUCOSE (UA) NEGATIVE (NEGATIVE); URINE KETONE NEGATIVE (NEGATIVE); URINE LEUK ESTERASE 2+ (NEGATIVE); URINE NITRITE POSITIVE (NEGATIVE); URINE PROTEIN 3+ (NEGATIVE); URINE RBC 162 /uL (0-23.9); URINE UROBILINOGEN 0.2 mg/dL (0.2-1.0); URINE WBC 1375 /uL (0-25.8)
[2024-04-10 15:46] LABS: VENOUS BASE EXCESS 1.3 mmol/L (-2-2); VENOUS PCO2 42.5 mmHg (38-52); VENOUS PH 7.407 (7.310-7.410)
[2024-04-10] MEDS ORDERED: ONDANSETRON 4 MG/2 ML VIAL ONE (15:48)
[2024-04-10 15:49] LABS: INR 1.21 (0.83-1.09); PROTHROMBIN TIME (PATIENT) 13.8 SEC (9.7-13.0)
[2024-04-10] MEDS ORDERED: PIPERACILLIN/TAZOB 4.5 GM 4.5 GM/100 ML BAG IVPB ONE (15:49)
[2024-04-10 15:52] LABS: ACTIVATED PTT 29.3 SECONDS (25.2-36.5)
[2024-04-10] MEDS: ONDANSETRON 4 MG/2 ML VIAL IVPUSH ONE (15:58)
[2024-04-10] MEDS: PIPERACILLIN/TAZOBACTAM 4.5 GM VIAL IVPB ONE (15:58)
[2024-04-10 16:10] LABS: POTASSIUM 3.7 mmol/L (3.5-5.1)
[2024-04-10 16:12] LABS: CALCIUM 8.6 mg/dL (8.5-10.1)
[2024-04-10 16:13] LABS: ALBUMIN 2.8 g/dl (3.4-5.0); BLOOD UREA NITROGEN 13.9 mg/dL (7-18)
[2024-04-10 16:16] LABS: CREATININE 1.1 mg/dL (0.55-1.3)
[2024-04-10] MEDS: LACTATED RINGERS SOLUTION 1000 ML INFUS.BAG IV ONE ×2 (18:20→18:37)
[2024-04-10] MEDS: VANCOMYCIN PREMIX 1.5 GM 1,500 MG/300 ML BAG IVPB ONE (18:47)
[2024-04-11] MEDS ORDERED: PIPERACILLIN/TAZOB 3.375 GM 3.375 GM in DEXTROSE 5%-WATER - 50 ML IVPB SCH ×2 (01:00→15:45)
[2024-04-11] MEDS: ACETAMINOPHEN 1000 MG/100 ML BAG IVPB ONE ×2 (02:55→17:42)
[2024-04-11] MEDS: PIPERACILLIN/TAZOB 3.375 GM 50 ML IVPB SCH ×2 (02:57→23:04)
[2024-04-11] MEDS: oxyCODONE HCL 5 MG TABLET PO PRN (04:00)
[2024-04-11] MEDS: GABAPENTIN 100 MG CAPSULE PO SCH (06:41)
[2024-04-11] MEDS: VANCOMYCIN PREMIX 1.5 GM 1,500 MG/300 ML BAG IVPB SCH (08:17)
[2024-04-11] MEDS: TAMSULOSIN HCL 0.4 MG CAP PO SCH (08:18)
[2024-04-11 08:24] LABS: BASO % 0.2 % (0-2.0); EOS % 0.2 % (0-4.5); HEMATOCRIT 32.2 % (35.4-49); HEMOGLOBIN 10.4 GM/dL (11.7-16.9); LYMPH % 2.6 % (8-40); MCH 29.9 pg (25.7-33.7); MCHC 32.3 g/dl (32.0-35.9); MEAN CELL VOLUME 92.4 fl (80-96); MEAN PLT VOLUME 9.7 fl (7.5-11.1); MONO % 8.7 % (3.8-10.2); NEUT % 88.3 % (42.8-82.8); PLATELET COUNT 140 10^3/uL (134-434); RBC 3.49 M/mm3 (4.00-5.60); RDW 14.6 % (11.9-15.9); WHITE BLOOD COUNT 10.4 K/mm3 (4.0-10.0)
[2024-04-11 08:58] LABS: POTASSIUM 3.8 mmol/L (3.5-5.1)
[2024-04-11 09:00] LABS: CALCIUM 7.9 mg/dL (8.5-10.1)
[2024-04-11 09:01] LABS: ALBUMIN 2.3 g/dl (3.4-5.0); BLOOD UREA NITROGEN 15.9 mg/dL (7-18); MAGNESIUM 1.6 mg/dL (1.8-2.4)
[2024-04-11 09:04] LABS: PHOSPHOROUS 2.9 mg/dL (2.5-4.9)
[2024-04-11 09:05] LABS: BILIRUBIN,TOTAL 0.8 mg/dL (0.2-1)
[2024-04-11] MEDS: FINASTERIDE 5 MG TABLET (FP) PO SCH (09:35)
[2024-04-11] MEDS: PANTOPRAZOLE 20 MG TABLET PO SCH (09:35)
[2024-04-11] MEDS: DORZOLAMIDE 2% HCL OPHTHALMIC SOLUTION 10 ML BOTTLE OU SCH (09:36)
[2024-04-11] MEDS: TIMOLOL 0.5% OPHTHALMIC SOL 5 ML BOTTLE OU SCH (09:36)
[2024-04-11] MEDS ORDERED: DORZOLAMIDE HCL/TIMOLOL OPHTHALMIC SOLUTION 10 ML BOTTLE OU SCH (10:00)
[2024-04-11] MEDS: GABAPENTIN 300 MG CAPSULE PO SCH (14:17)
[2024-04-11] MEDS: VANCOMYCIN HCL 1,500 MG in DEXTROSE 5%-WATER - 250 ML IVPB SCH (16:53)
[2024-04-11] MEDS: MAGNESIUM 1GM/D5W 100ML - 100 ML IVPB IVPB ONE (16:56)
[2024-04-11] MEDS: VANCOMYCIN/WATER FOR INJ (PEG) 1,000 MG/200 ML BAG IVPB SCH (21:03)
[2024-04-13] MEDS ORDERED: BENZONATATE 200 MG CAPSULE PO PRN (10:06)
[2024-04-13] MEDS: FUROSEMIDE 40 MG/4 ML INJECTABLE VIAL IVPUSH SCH (10:08)
[2024-04-13] MEDS: FLUTICASONE PROP 0.05% 16 GM NASAL SPRAY NS SCH (11:04)
[2024-04-13 11:35] VITALS: BMI 35.6
[2024-04-13] MEDS: ASCORBIC ACID 500 MG TABLET (FP) PO SCH (12:23)
[2024-04-13] MEDS: MULTIVITAMINS (DAILY MVI) TABLET (FP) PO SCH (12:23)
[2024-04-13 12:47] LABS: HEMATOCRIT 31.1 % (35.4-49); HEMOGLOBIN 10.7 GM/dL (11.7-16.9); MCHC 34.4 g/dl (32.0-35.9); MEAN CELL VOLUME 90.3 fl (80-96); MEAN PLT VOLUME 10.1 fl (7.5-11.1); PLATELET COUNT 169 10^3/uL (134-434); RBC 3.44 M/mm3 (4.00-5.60); RDW 14.3 % (11.9-15.9); WHITE BLOOD COUNT 6.8 K/mm3 (4.0-10.0)
[2024-04-13 13:02] LABS: POTASSIUM 3.8 mmol/L (3.5-5.1)
[2024-04-13 13:03] LABS: CALCIUM 8.3 mg/dL (8.5-10.1)
[2024-04-13 13:04] LABS: ALBUMIN 2.3 g/dl (3.4-5.0)
[2024-04-13 13:07] LABS: CREATININE 0.9 mg/dL (0.55-1.3)
[2024-04-13 13:08] LABS: BILIRUBIN,TOTAL 0.4 mg/dL (0.2-1)
[2024-04-13 13:09] LABS: TOT PROT 5.3 g/dl (6.4-8.2)
[2024-04-13 14:14] LABS: ANISOCYTOSIS 0; MACROCYTOSIS 0
[2024-04-13] MEDS: MEROPENEM-0.9% SODIUM CHLORIDE 1 GM/50 ML BAG IVPB SCH (19:08)
[2024-04-15 08:26] LABS: HEMATOCRIT 32.7 % (35.4-49); HEMOGLOBIN 10.8 GM/dL (11.7-16.9); MCH 29.9 pg (25.7-33.7); MCHC 32.9 g/dl (32.0-35.9); MEAN CELL VOLUME 90.9 fl (80-96); MEAN PLT VOLUME 9.2 fl (7.5-11.1); PLATELET COUNT 166 10^3/uL (134-434); RDW 14.1 % (11.9-15.9); WHITE BLOOD COUNT 4.8 K/mm3 (4.0-10.0)
[2024-04-15 08:27] LABS: POTASSIUM 3.7 mmol/L (3.5-5.1)
[2024-04-15 08:39] LABS: CALCIUM 8.3 mg/dL (8.5-10.1)
[2024-04-15 08:41] LABS: ALBUMIN 2.2 g/dl (3.4-5.0); BLOOD UREA NITROGEN 16.6 mg/dL (7-18)
[2024-04-15 08:44] LABS: BILIRUBIN,TOTAL 0.3 mg/dL (0.2-1)
[2024-04-15 08:45] LABS: CREATININE 0.8 mg/dL (0.55-1.3); TOT PROT 5.4 g/dl (6.4-8.2)
[2024-04-15 09:37] LABS: IRON SERUM 26 ug/dL (50-175); TOTAL IRON BINDING CAPACITY 230 ug/dL (250-450)
[2024-04-15] MEDS: HYDROmorphone HCl 2 MG/ML VIAL IVPB PRN (14:58)
[2024-04-15] MEDS: oxyCODONE HCL 5 MG TABLET PO PRN (15:52)
[2024-04-15] MEDS: HEPARIN NA (PORCINE) 5,000 UNITS/ML 1ML VIAL SQ SCH (21:06)
[2024-04-15] MEDS: IRON SUCROSE INJECTION 200 MG in SODIUM CHLORIDE 100 ML IVPB ONE (22:34)
[2024-04-16 07:27] LABS: HEMATOCRIT 32.3 % (35.4-49); HEMOGLOBIN 10.9 GM/dL (11.7-16.9); MCH 29.9 pg (25.7-33.7); MCHC 33.6 g/dl (32.0-35.9); MEAN CELL VOLUME 89.1 fl (80-96); MEAN PLT VOLUME 9.5 fl (7.5-11.1); PLATELET COUNT 177 10^3/uL (134-434); RBC 3.63 M/mm3 (4.00-5.60); RDW 14.1 % (11.9-15.9); WHITE BLOOD COUNT 4.9 K/mm3 (4.0-10.0)
[2024-04-16 07:39] LABS: POTASSIUM 4.1 mmol/L (3.5-5.1)
[2024-04-16 07:46] LABS: BLOOD UREA NITROGEN 17.4 mg/dL (7-18)
[2024-04-16 07:47] LABS: ALBUMIN 2.2 g/dl (3.4-5.0); CALCIUM 8.1 mg/dL (8.5-10.1)
[2024-04-16 07:48] LABS: BILIRUBIN,TOTAL 0.3 mg/dL (0.2-1); TOT PROT 5.5 g/dl (6.4-8.2)
[2024-04-16 07:49] LABS: CREATININE 0.8 mg/dL (0.55-1.3)
[2024-04-16] MEDS: ACETAMINOPHEN 1000 MG/100 ML BAG IVPB ONE (17:56)
[2024-04-16 18:58] LABS: URINE APPEARANCE CLEAR; URINE COLOR YELLOW; URINE GLUCOSE (UA) NEGATIVE (NEGATIVE)
[2024-04-16 18:59] LABS: PH,URINE 5.5 (5.0-8.0); URINE BILIRUBIN NEGATIVE (NEGATIVE); URINE KETONE NEGATIVE (NEGATIVE); URINE LEUK ESTERASE TRACE (NEGATIVE); URINE NITRITE NEGATIVE (NEGATIVE); URINE PROTEIN 30 (NEGATIVE); URINE UROBILINOGEN 0.2 mg/dL (0.2-1.0)
[2024-04-16 19:00] LABS: EPI CELLS 5.4 /uL (0-25.1); HYALINE CASTS 0 /uL (0-3.1); URINE BACTERIA 8.5 /uL (0-1359); URINE RBC 35.2 /uL (0-23.9); URINE WBC 56.6 /uL (0-25.8)
[2024-04-17 07:12] LABS: BASO % 0.6 % (0-2.0); EOS % 6.1 % (0-4.5); HEMATOCRIT 33.9 % (35.4-49); HEMOGLOBIN 11.4 GM/dL (11.7-16.9); LYMPH % 12.9 % (8-40); MCH 29.9 pg (25.7-33.7); MCHC 33.6 g/dl (32.0-35.9); MEAN PLT VOLUME 9.5 fl (7.5-11.1); MONO % 13.5 % (3.8-10.2); NEUT % 66.9 % (42.8-82.8); PLATELET COUNT 202 10^3/uL (134-434); RBC 3.81 M/mm3 (4.00-5.60); RDW 14.2 % (11.9-15.9); WHITE BLOOD COUNT 4.4 K/mm3 (4.0-10.0)
[2024-04-17 07:29] LABS: POTASSIUM 4.2 mmol/L (3.5-5.1)
[2024-04-17 07:33] LABS: ALBUMIN 2.3 g/dl (3.4-5.0); BLOOD UREA NITROGEN 23.1 mg/dL (7-18); CALCIUM 8.7 mg/dL (8.5-10.1)
[2024-04-17 07:37] LABS: CREATININE 0.8 mg/dL (0.55-1.3)
[2024-04-17 07:38] LABS: BILIRUBIN,TOTAL 0.3 mg/dL (0.2-1); TOT PROT 5.4 g/dl (6.4-8.2)
[2024-04-17] MEDS: FUROSEMIDE 40 MG TABLET (FP) PO SCH (09:41)
[2024-04-17] MEDS: ACETAMINOPHEN 325 MG TABLET (FP) PO PRN (17:53)
[2024-04-18] MEDS: FUROSEMIDE 40 MG TABLET (FP) PO SCH (10:13)
[2024-04-18 12:07] LABS: BASO % 0.5 % (0-2.0); EOS % 4.3 % (0-4.5); HEMATOCRIT 32.7 % (35.4-49); HEMOGLOBIN 10.7 GM/dL (11.7-16.9); LYMPH % 10.6 % (8-40); MCH 29.7 pg (25.7-33.7); MCHC 32.8 g/dl (32.0-35.9); MEAN CELL VOLUME 90.5 fl (80-96); MEAN PLT VOLUME 9.4 fl (7.5-11.1); NEUT % 74.6 % (42.8-82.8); PLATELET COUNT 206 10^3/uL (134-434); RBC 3.62 M/mm3 (4.00-5.60); RDW 14.1 % (11.9-15.9); WHITE BLOOD COUNT 3.8 K/mm3 (4.0-10.0)
[2024-04-18 12:21] LABS: POTASSIUM 4.3 mmol/L (3.5-5.1)
[2024-04-18 12:25] LABS: CALCIUM 8.6 mg/dL (8.5-10.1)
[2024-04-18 12:26] LABS: ALBUMIN 2.2 g/dl (3.4-5.0); BLOOD UREA NITROGEN 21.9 mg/dL (7-18)
[2024-04-18 12:29] LABS: CREATININE 0.8 mg/dL (0.55-1.3)
[2024-04-18 12:30] LABS: BILIRUBIN,TOTAL 0.2 mg/dL (0.2-1); TOT PROT 5.4 g/dl (6.4-8.2)
[2024-04-18 12:33] LABS: N-TERMINAL BNP 441.4 pg/ml (5-450)
[2024-04-18 15:51] VITALS: RESP 18
[2024-04-18 19:08] VITALS: BP 142/72; PULSE 84; TEMP 98.7
== END 2024-04-18 20:22 | DRG 699 ==
LOC: JER 14:41 → JERBED 18:38 → J4W 04-11 01:13
PROVIDERS: ADMIT Internal Medicine; ATTEND Family Medicine
DX: T83.510A Infection and inflammatory reaction due to cystostomy catheter, initial encounter (principal); N39.0 Urinary tract infection, site not specified; R78.81 Bacteremia; E78.5 Hyperlipidemia, unspecified; E11.9 Type 2 diabetes mellitus without complications; G35 Multiple sclerosis; I10 Essential (primary) hypertension; R53.83 Other fatigue; R09.02 Hypoxemia; Y83.9 Surgical procedure, unspecified as the cause of abnormal reaction of the patient, or of later complication, without mention of misadventure at the time of the procedure; E66.9 Obesity, unspecified; Z68.35 Body mass index [BMI] 35.0-35.9, adult
CPT/HCPCS: 0241U-QW; 36415; 36569; 51102; 71045-TC-FY; 74176-TC; 80053; 81003; 82803; 82962; 83540; 83550; 83605; 83690; 83735; 83880; 84100; 84484; 85025; 85027; 85610; 85730; 86850; 86900; 86901; 87040; 87086; 87186; 93005; 93010; 97162-GP; 99285-25; G0480; J0131; J1644; J1756

== ENCOUNTER 2024-08-03 11:03 | Emergency (ER) | payer OTHER ==
[2024-08-03 11:31] VITALS: RESP 17; BMI 34.0
[2024-08-03] MEDS ORDERED: ACETAMINOPHEN 325 MG TABLET (FP) ONE (14:30)
[2024-08-03] MEDS: ACETAMINOPHEN 500 MG TABLET (FP) PO ONE (14:30)
[2024-08-03 16:12] VITALS: BP 120/73; PULSE 78; TEMP 97.8
== END 2024-08-03 18:23 | disposition home or self-care (01) ==
LOC: JER 11:03
DX: T83.028A Displacement of other urinary catheter, initial encounter (principal)
CPT/HCPCS: 51102; 99283-25

== ENCOUNTER 2024-08-09 21:46 | Inpatient (IN) | payer OTHER ==
[2024-08-09 23:11] VITALS: BMI 34.0
[2024-08-09 23:52] LABS: BASO % 0.6 % (0-2.0); EOS % 4.1 % (0-4.5); HEMATOCRIT 33.3 % (35.4-49); HEMOGLOBIN 11.2 GM/dL (11.7-16.9); LYMPH % 8.1 % (8-40); MCH 30.6 pg (25.7-33.7); MCHC 33.6 g/dl (32.0-35.9); MEAN PLT VOLUME 9.4 fl (7.5-11.1); MONO % 9.3 % (3.8-10.2); NEUT % 77.9 % (42.8-82.8); PLATELET COUNT 166 10^3/uL (134-434); RBC 3.66 M/mm3 (4.00-5.60); RDW 15.1 % (11.9-15.9); WHITE BLOOD COUNT 5.5 K/mm3 (4.0-10.0)
[2024-08-09 23:59] LABS: INR 1.58 (0.83-1.09); PROTHROMBIN TIME (PATIENT) 17.2 SEC (9.7-13.0)
[2024-08-10 00:14] LABS: CHLORIDE 106 mmol/L (98-107); SODIUM 143 mmol/L (136-145)
[2024-08-10 00:17] LABS: CALCIUM 8.5 mg/dL (8.5-10.1)
[2024-08-10 00:18] LABS: ALBUMIN 2.8 g/dl (3.4-5.0); BLOOD UREA NITROGEN 24.1 mg/dL (7-18); CO2 29 mmol/L (21-32); GLUCOSE,RANDOM 121 mg/dL (74-106); MAGNESIUM 1.9 mg/dL (1.8-2.4)
[2024-08-10 00:21] LABS: CREATININE 1.4 mg/dL (0.55-1.3); SGOT/AST 11 U/L (15-37); SGPT/ALT 9 U/L (13-61)
[2024-08-10 00:23] LABS: BILIRUBIN,TOTAL 0.4 mg/dL (0.2-1); TOT PROT 5.9 g/dl (6.4-8.2)
[2024-08-10 00:48] LABS: ANION GAP 8 mmol/L (4-13); POTASSIUM 2.9 mmol/L (3.5-5.1)
[2024-08-10 00:49] LABS: LACTIC ACID 2.4 mmol/L (0.4-2.0)
[2024-08-10 01:25] LABS: EPI CELLS 7 /uL (0-25.1); HYALINE CASTS 1 /uL (0-3.1); PH,URINE 5.5 (5.0-8.0); URINE APPEARANCE TURBID; URINE BACTERIA >9,000 /uL (0-1359); URINE BILIRUBIN NEGATIVE (NEGATIVE); URINE COLOR YELLOW; URINE GLUCOSE (UA) NEGATIVE (NEGATIVE); URINE KETONE NEGATIVE (NEGATIVE); URINE LEUK ESTERASE 3+ (NEGATIVE); URINE NITRITE NEGATIVE (NEGATIVE); URINE PROTEIN 3+ (NEGATIVE); URINE RBC 310 /uL (0-23.9); URINE UROBILINOGEN 0.2 mg/dL (0.2-1.0); URINE WBC 3281 /uL (0-25.8)
[2024-08-10] MEDS: SODIUM PHOSPHATE/NA BIPHOS 133 ML ENEMA PR ONE (01:53)
[2024-08-10] MEDS ORDERED: POTASSIUM CHLORIDE TABS 10 MEQ TABLET.ER (FP) ONE (02:07)
[2024-08-10] MEDS: POTASSIUM CHLORIDE ORAL LIQUID 20 MEQ/15 ML PO ONE (02:48)
[2024-08-10] MEDS: KCL 10 MEQ IVPB 10 MEQ/100 ML INFUS.BAG IVPB SCH (02:48)
[2024-08-10] MEDS: KCL 20 MEQ PREMIX BAG 20 MEQ/100 ML INFUS.BAG IVPB ONE (02:50)
[2024-08-10] MEDS: SODIUM CHLORIDE 1,000 ML IV STA (02:50)
[2024-08-10 02:59] LABS: ALK PHOS 84 U/L (45-117)
[2024-08-10 07:15] LABS: POTASSIUM 3.5 mmol/L (3.5-5.1)
[2024-08-10 07:17] LABS: ALBUMIN 2.6 g/dl (3.4-5.0); BLOOD UREA NITROGEN 22.9 mg/dL (7-18)
[2024-08-10 07:21] LABS: BILIRUBIN,TOTAL 0.2 mg/dL (0.2-1); TOT PROT 5.7 g/dl (6.4-8.2)
[2024-08-10 08:13] LABS: EPI CELLS 23 /uL (0-25.1); HYALINE CASTS 14 /uL (0-3.1); URINE APPEARANCE CLOUDY; URINE BACTERIA >9,000 /uL (0-1359); URINE BILIRUBIN NEGATIVE (NEGATIVE); URINE COLOR RED; URINE GLUCOSE (UA) NEGATIVE (NEGATIVE); URINE KETONE NEGATIVE (NEGATIVE); URINE LEUK ESTERASE 3+ (NEGATIVE); URINE NITRITE POSITIVE (NEGATIVE); URINE PROTEIN 3+ (NEGATIVE); URINE UROBILINOGEN 0.2 mg/dL (0.2-1.0); URINE WBC 4704 /uL (0-25.8)
[2024-08-10] MEDS ORDERED: ERTAPENEM SODIUM 1 GM VIAL ONE (09:01)
[2024-08-10 09:09] LABS: URINE RBC 10187.6 /uL (0-23.9)
[2024-08-10] MEDS: ERTAPENEM SODIUM 1 GM in SODIUM CHLORIDE 50 ML IVPB ONE (09:14)
[2024-08-10 11:29] LABS: MAGNESIUM 2.1 mg/dL (1.8-2.4)
[2024-08-10 11:33] LABS: PHOSPHOROUS 2.3 mg/dL (2.5-4.9)
[2024-08-10] MEDS: GABAPENTIN 300 MG CAPSULE PO SCH (14:51)
[2024-08-10] MEDS: DORZOLAMIDE HCL/TIMOLOL OPHTHALMIC SOLUTION 10 ML BOTTLE OU ONE (17:48)
[2024-08-10] MEDS: APIXABAN 5 MG TABLET PO ONE ×2 (17:48→17:58)
[2024-08-10] MEDS: INSULIN ASPART SLIDING SCALE (NOVOLOG) 1 VIAL SQ SCH (17:58)
[2024-08-10] MEDS ORDERED: APIXABAN 5 MG TABLET PO SCH (22:00)
[2024-08-10] MEDS: DORZOLAMIDE HCL/TIMOLOL OPHTHALMIC SOLUTION 10 ML BOTTLE OU SCH (22:14)
[2024-08-10] MEDS: APIXABAN 5 MG TABLET PO SCH (22:14)
[2024-08-11 07:12] LABS: MCH 30.4 pg (25.7-33.7); MCHC 32.5 g/dl (32.0-35.9); MEAN CELL VOLUME 93.5 fl (80-96); MEAN PLT VOLUME 9.5 fl (7.5-11.1); PLATELET COUNT 176 10^3/uL (134-434); RBC 3.64 M/mm3 (4.00-5.60); RDW 14.8 % (11.9-15.9); WHITE BLOOD COUNT 4.6 K/mm3 (4.0-10.0)
[2024-08-11 07:31] LABS: POTASSIUM 3.8 mmol/L (3.5-5.1)
[2024-08-11 07:34] LABS: BLOOD UREA NITROGEN 14.8 mg/dL (7-18); CALCIUM 8.4 mg/dL (8.5-10.1)
[2024-08-11 07:38] LABS: CREATININE 0.7 mg/dL (0.55-1.3)
[2024-08-11] MEDS: TAMSULOSIN HCL 0.4 MG CAP PO SCH (08:17)
[2024-08-11] MEDS: POLYETHYLENE GLYCOL (HEALTHYLAX) 3350 17 GM PACKET PO SCH (09:29)
[2024-08-11] MEDS: amLODIPine BESYLATE 10 MG TABLET (FP) PO SCH (09:30)
[2024-08-11] MEDS: OXYBUTYNIN CHLORIDE 5 MG TABLET PO SCH (09:30)
[2024-08-11] MEDS: FUROSEMIDE 40 MG TABLET (FP) PO SCH (09:30)
[2024-08-11] MEDS: PANTOPRAZOLE 40 MG TABLET PO SCH (09:30)
[2024-08-11] MEDS: ERTAPENEM SODIUM 1 GM in SODIUM CHLORIDE 50 ML IVPB SCH (09:30)
[2024-08-11] MEDS: FINASTERIDE 5 MG TABLET (FP) PO SCH (09:30)
[2024-08-11] MEDS: AMINO ACIDS/PROTEIN HYDROLYS 30 ML LIQUID.PKT PO SCH (17:11)
[2024-08-11] MEDS: ACETAMINOPHEN 325 MG TABLET (FP) PO PRN (19:31)
[2024-08-12] MEDS: ACETAMINOPHEN 1000 MG/100 ML BAG IVPB ONE (06:35)
[2024-08-12] MEDS: morphine CARPU-JECT 2 MG/1 ML DISP.SYRIN IVPUSH ONE (07:57)
[2024-08-12 08:02] LABS: HEMATOCRIT 32.8 % (35.4-49); HEMOGLOBIN 11.2 GM/dL (11.7-16.9); MCH 31.1 pg (25.7-33.7); MCHC 34.1 g/dl (32.0-35.9); MEAN CELL VOLUME 91.4 fl (80-96); MEAN PLT VOLUME 9.2 fl (7.5-11.1); PLATELET COUNT 171 10^3/uL (134-434); RBC 3.59 M/mm3 (4.00-5.60); RDW 14.3 % (11.9-15.9); WHITE BLOOD COUNT 3.8 K/mm3 (4.0-10.0)
[2024-08-12 08:23] LABS: POTASSIUM 3.7 mmol/L (3.5-5.1)
[2024-08-12 08:35] LABS: ALBUMIN 2.6 g/dl (3.4-5.0); CALCIUM 8.5 mg/dL (8.5-10.1); MAGNESIUM 2.1 mg/dL (1.8-2.4)
[2024-08-12 08:36] LABS: BLOOD UREA NITROGEN 19.2 mg/dL (7-18)
[2024-08-12 08:38] LABS: CREATININE 0.8 mg/dL (0.55-1.3)
[2024-08-12 08:40] LABS: BILIRUBIN,TOTAL 0.4 mg/dL (0.2-1); TOT PROT 5.5 g/dl (6.4-8.2)
[2024-08-12] MEDS: MULTIVITAMINS (DAILY MVI) TABLET (FP) PO SCH (12:42)
[2024-08-12] MEDS ORDERED: METHYL SALICYLATE/MENTHOL 30 GM TUBE TP PRN (22:13)
[2024-08-12] MEDS: KETOROLAC TROMETHAMINE 15 MG/ML VIAL IVPUSH ONE (22:19)
[2024-08-12] MEDS: SENNOSIDES/DOCUSATE COMBO (SENNA PLUS) TABLET (UD) PO ONE (22:20)
[2024-08-13] MEDS: ACETAMINOPHEN 1000 MG/100 ML BAG IVPB ONE (05:06)
[2024-08-13 07:52] LABS: HEMATOCRIT 33.6 % (35.4-49); HEMOGLOBIN 11.2 GM/dL (11.7-16.9); MCH 30.6 pg (25.7-33.7); MCHC 33.4 g/dl (32.0-35.9); MEAN CELL VOLUME 91.6 fl (80-96); MEAN PLT VOLUME 9.2 fl (7.5-11.1); PLATELET COUNT 180 10^3/uL (134-434); RBC 3.67 M/mm3 (4.00-5.60); RDW 14.9 % (11.9-15.9); WHITE BLOOD COUNT 3.5 K/mm3 (4.0-10.0)
[2024-08-13 08:11] LABS: POTASSIUM 3.6 mmol/L (3.5-5.1)
[2024-08-13 08:32] LABS: CALCIUM 8.6 mg/dL (8.5-10.1)
[2024-08-13 08:33] LABS: ALBUMIN 2.6 g/dl (3.4-5.0); MAGNESIUM 2.1 mg/dL (1.8-2.4)
[2024-08-13 08:34] LABS: BLOOD UREA NITROGEN 22.3 mg/dL (7-18)
[2024-08-13 08:37] LABS: CREATININE 0.8 mg/dL (0.55-1.3)
[2024-08-13 08:38] LABS: BILIRUBIN,TOTAL 0.7 mg/dL (0.2-1); TOT PROT 5.5 g/dl (6.4-8.2)
[2024-08-13] MEDS: SODIUM PHOSPHATE/NA BIPHOS 133 ML ENEMA RC ONE (13:45)
[2024-08-13] MEDS: NITROFURANTOIN MACROCRYSTAL 50 MG CAPSULE (FP) PO SCH (18:31)
[2024-08-13] MEDS: SENNOSIDES 8.6MG TABLET (FP) PO SCH (21:25)
[2024-08-14 08:38] LABS: HEMATOCRIT 35.7 % (35.4-49); HEMOGLOBIN 11.7 GM/dL (11.7-16.9); MCH 30.5 pg (25.7-33.7); MCHC 32.8 g/dl (32.0-35.9); MEAN CELL VOLUME 92.9 fl (80-96); MEAN PLT VOLUME 9.7 fl (7.5-11.1); PLATELET COUNT 181 10^3/uL (134-434); RBC 3.84 M/mm3 (4.00-5.60); RDW 14.7 % (11.9-15.9); WHITE BLOOD COUNT 4.1 K/mm3 (4.0-10.0)
[2024-08-14 09:00] LABS: POTASSIUM 3.6 mmol/L (3.5-5.1)
[2024-08-14 09:03] LABS: CALCIUM 8.4 mg/dL (8.5-10.1)
[2024-08-14 09:04] LABS: ALBUMIN 2.9 g/dl (3.4-5.0); BLOOD UREA NITROGEN 20.7 mg/dL (7-18); MAGNESIUM 2.1 mg/dL (1.8-2.4)
[2024-08-14 09:07] LABS: CREATININE 0.8 mg/dL (0.55-1.3)
[2024-08-14 09:08] LABS: BILIRUBIN,TOTAL 0.4 mg/dL (0.2-1)
[2024-08-15] MEDS: ONDANSETRON 4 MG/2 ML VIAL IVPUSH ONE (10:02)
[2024-08-15] MEDS: ACETAMINOPHEN 1000 MG/100 ML BAG IVPB ONE (16:17)
[2024-08-15] MEDS: AMINO ACIDS/PROTEIN HYDROLYS 30 ML LIQUID.PKT PO SCH (16:54)
[2024-08-15 19:22] VITALS: RESP 20; TEMP 97.3
[2024-08-15 22:34] VITALS: BP 117/73; PULSE 60
== END 2024-08-15 23:00 | DRG 689 ==
LOC: JER 21:46 → JERBED 08-10 08:38 → J7W 08-10 12:09 → OBSVTOIN 08-10 14:26
PROVIDERS: ADMIT Student in an Organized Health Care Education/Training Program
DX: N39.0 Urinary tract infection, site not specified (principal); J18.9 Pneumonia, unspecified organism; E87.20 Acidosis, unspecified; K59.00 Constipation, unspecified; N40.0 Benign prostatic hyperplasia without lower urinary tract symptoms; N31.9 Neuromuscular dysfunction of bladder, unspecified; E11.9 Type 2 diabetes mellitus without complications; G35 Multiple sclerosis; D64.9 Anemia, unspecified; K44.9 Diaphragmatic hernia without obstruction or gangrene; E78.5 Hyperlipidemia, unspecified; E87.6 Hypokalemia; L89.610 Pressure ulcer of right heel, unstageable; L89.620 Pressure ulcer of left heel, unstageable; L89.152 Pressure ulcer of sacral region, stage 2; I12.9 Hypertensive chronic kidney disease with stage 1 through stage 4 chronic kidney disease, or unspecified chronic kidney disease; E11.22 Type 2 diabetes mellitus with diabetic chronic kidney disease; N18.9 Chronic kidney disease, unspecified; N13.9 Obstructive and reflux uropathy, unspecified; A49.02 Methicillin resistant Staphylococcus aureus infection, unspecified site; Z86.718 Personal history of other venous thrombosis and embolism
CPT/HCPCS: 36415; 74018-TC-FY; 74177-TC; 80048; 80053; 81003; 82962; 83605; 83690; 83735; 84100; 85025; 85027; 85610; 85730; 86850; 86900; 86901; 87086; 87186; 87635; 93005; 93010; 97116-GP; 97161-GP; 99285-25; G0378; J0131; Q9967

== ENCOUNTER 2024-08-31 08:06 | Emergency (ER) | payer OTHER ==
[2024-08-31 08:41] VITALS: RESP 18; TEMP 98.2; BMI 34.0
[2024-08-31] MEDS ORDERED: ACETAMINOPHEN INJECTION 100 ML ONE (10:11)
[2024-08-31] MEDS: ACETAMINOPHEN 1000 MG/100 ML BAG IVPB ONE (10:21)
[2024-08-31 10:25] LABS: ABSOLUTE IMMATURE GRANULOCYTES 0.02 x10^3/uL (0.0-0.031); BASOPHILS # 0.01 x10^3/uL (0.01-0.08); EOSINOPHIL % 4.1 % (0.8-7.0); EOSINOPHILS # 0.19 x10^3/uL (0.04-0.54); HEMATOCRIT 35.8 % (40.1-51.0); HEMOGLOBIN 11.3 g/dL (13.7-17.5); MCHC 31.6 g/dl (32.3-36.5); MEAN CELL VOLUME 93.2 fl (79.0-92.2); MEAN PLT VOLUME 11.7 fl (9.4-12.4); MONOCYTE # 0.51 x10^3/uL (0.30-0.82); PLATELET COUNT 179 x10^3/uL (163-337); RDW 13.5 % (12.6-16.6)
[2024-08-31 11:13] LABS: POTASSIUM 3.8 mmol/L (3.5-5.1)
[2024-08-31 11:15] LABS: CALCIUM 8.6 mg/dL (8.5-10.1)
[2024-08-31 11:16] LABS: ALBUMIN 2.9 g/dl (3.4-5.0); BLOOD UREA NITROGEN 15.9 mg/dL (7-18)
[2024-08-31 11:19] LABS: CREATININE 1.1 mg/dL (0.55-1.3)
[2024-08-31 11:20] LABS: BILIRUBIN,TOTAL 0.4 mg/dL (0.2-1); TOT PROT 6.2 g/dl (6.4-8.2)
[2024-08-31 20:28] VITALS: BP 107/54; PULSE 70
== END 2024-09-01 01:00 | disposition home or self-care (01) ==
LOC: JER 08:06
PROC: 3E033NZ Introduction of Analgesics, Hypnotics, Sedatives into Peripheral Vein, Percutaneous Approach (ICD-10-PCS; principal; 2024-08-31)
DX: T83.098A Other mechanical complication of other urinary catheter, initial encounter (principal); R30.0 Dysuria; R10.30 Lower abdominal pain, unspecified
CPT/HCPCS: 36415; 51102; 80053; 85025; 87070; 87186; 87205; 93005; 93010; 99285-25; J0131